=== PATIENT | female | born 1940 | race Caucasian/White ===

== ENCOUNTER → 2023-07-01 09:58 | Outpatient (BNVA) | payer MEDICARE, SELFPAY | PROVIDERS: Family Provider Nurse Practitioner Family; PCP Nurse Practitioner Family; Visit Provider Podiatrist Foot & Ankle Surgery | DX: I73.9 Peripheral vascular disease, unspecified (principal); L60.3 Nail dystrophy; M20.41 Other hammer toe(s) (acquired), right foot; M20.42 Other hammer toe(s) (acquired), left foot; M21.611 Bunion of right foot; M21.612 Bunion of left foot | CPT/HCPCS: 11721; 99204 ==

== ENCOUNTER 2023-09-29 20:09 | Emergency (ER) | payer MEDICARE, SELFPAY ==
[2023-09-29 20:22] VITALS: BP 156/86; PULSE 87; RESP 16; TEMP 36.8; O2SAT 91; BMI 28.1
--- NOTE | 2023-09-29 21:00 | XRR_ITS ---
PROCEDURE INFORMATION: Exam: XR Right Humerus Exam date and time: 09/29/2023 9:03 PM Age: 82 years old Clinical indication: Injury or trauma; Fall; Other: Swelling; Additional info: Fall/pain TECHNIQUE: Imaging protocol: Radiologic exam of the right humerus. Views: 2 or more views. COMPARISON: CR (CHEST, ) 09/29/2023 9:03 PM FINDINGS: Bones/joints: Normal. Soft tissues: Normal. XR/[place] [id number] IMPRESSION: No acute findings.
--- NOTE | 2023-09-29 21:00 | XRR_ITS ---
PROCEDURE INFORMATION: Exam: XR Right Shoulder Exam date and time: 09/29/2023 9:03 PM Age: 82 years old Clinical indication: Injury or trauma; Fall; Other: Swelling; Additional info: Fall/pain TECHNIQUE: Imaging protocol: Radiologic exam of the right shoulder. Views: 2 views. COMPARISON: [place] [id number] 09/29/2023 9:03 PM FINDINGS: Bones/joints: Normal. Soft tissues: Axillary view is recommended rule out shoulder dislocation. XR/XR shoulder RT min 2V* [id number] IMPRESSION: Axillary view is recommended rule out shoulder dislocation.
--- NOTE | 2023-09-29 22:03 | CTR_ITS ---
PROCEDURE INFORMATION: Exam: CT Right Upper Extremity Without Contrast, Shoulder Exam date and time: 09/29/2023 10:17 PM Age: 82 years old Clinical indication: Pain and injury or trauma; Fall; Blunt trauma (contusions or hematomas); Shoulder; Right; Additional info: Fall/ trauma TECHNIQUE: Imaging protocol: Computed tomography of the right upper extremity without contrast. Exam focused on the shoulder. Radiation optimization: All CT scans at this facility use at least one of these dose optimization techniques: automated exposure control; mA and/or kV adjustment per patient size (includes targeted exams where dose is matched to clinical indication); or iterative reconstruction. REPORTING DATA: Count of CT and Cardiac NM exams in prior 12 months: This patient has received 0 known CTs and 0 known cardiac nuclear medicine studies in the 12 months prior to the current study. 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 Soft tissues: Normal. CT/CT shoulder RT wo con* [id number] IMPRESSION: 1. 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 2. No acute posttraumatic findings.
--- NOTE | 2023-09-29 23:00 | W.ED.FALL ---
HPI - Fall General: Chief Complaint: Fall Stated Complaint: Fell injured r shoulder Time Seen by Provider: 09/29/23 20:35 History of Present Illness: 82-year-old female presents emergency department with her family members. Family member states that they were standing in the kitchen when she was sitting at a chair and attempted to reach to the table lost her balance from a seated position approximately 1 to 1-1/2 feet above the linoleum floor fell to the floor and started having right shoulder pain. The patient states that her shoulder pain is a 3 or 5 out of 10 she states that hurts more when she attempts to move it. She states she did not lose consciousness does not have head neck or back pain. She states that it is only her shoulder that is causing her difficulty. She denies numbness or tingling to the extremity she states she is able to grab and hold things with her hand but hurts to raise her arm up. Review of Systems General: Reports: 10 or more systems reviewed and unremarkable except in HPI and below Musc: Reports: extremity pain and joint pain PFSH ED PFSH: Surgical History (Updated 09/02/23 @ 14:29 by SKY Oshea) Hx of eye surgery Family History Other Cancer Social History (Updated 09/02/23 @ 14:08 by Kalli Sharma LPN) Smoking and tobacco/nicotine status: never used tobacco/nicotine Alcohol intake: never Substance/Drug Use: never Adopted: No Caregiver/support person: No Lives independently: No Sexually active: Yes Do you think of yourself as: Straight/Heterosexual Current gender identity: Female Physical Exam Narrative: EXAM NARRATIVE: Constitutional: the patient appears well nourished and with normal development. Vital signs reviewed as documented. HENMT: Normocephalic, atraumatic. Extermal ears with normal appearance without drainage. Nose without drainage, normal appearance. Mucus membranes moist. Neck is supple, No jugular venous distension, trachea is midline, no appreciable carotid bruits. No lymphadenopathy. No meningeal signs. Flexion, extension and lateral rotation is without pain. Eyes: Pupils are equal, round, reactive to light and accommodation. No scleral icterus. Extra-ocular movement are intact. Thorax is symmetrical and with equal rise and fall with respirations. Resp: Lungs are clear to auscultation. No wheezes, rales, crackles or ronchi at present. Cardio: Regular rate and rhythm. Positive S1, S2. No appreciable murmurs, rubs or gallops. GI: Abdominal exam reveals normal bowel sounds to all quadrants. No organomegaly. No obvious palpable masses noted. No hepatomegally appreciated. Soft, nontender to palpation. Extremity: Extremities are non-edematous and both femoral and pedal pulses are 2+ and equal bilaterally. Moves all Remaining extremities well, sensation in all extremities. Patient complains of increased pain when abducting the right arm. Neuro: Alert and oriented x4, person, place, time and situation. Cranial nerves II through XII are grossly intact, there is no focal neurological deficits that I can appreciate at present. Motor strength in the upper and lower extremities are equal and bilateral 5/5. Psych: Cooperative, calm, normal thought process, appropriate judgment. Skin: No lesions, rashes. No gross abnormalities noted. Back: Symmetrical, no obvious deformity, No CVA tenderness Course Reevaluation(s): Reevaluation #1: Procedure note:Right shoulder sling I reviewed the radiographic examination and determined the need for stabilization via right upper extremity sling. A soft shoulder sling was utilized. The sling was ordered and placed by the nursing staff, under the direct supervision of myself (ER Physician. The patient's neurovascular status was evaluated and was intact before and after the application of the sling/splint. Capillary refill was less than 3 seconds before and after the application. The patient was provided a sling and the most appropriate anatomical and functional position at that time. Anticipatory guidance, return precautions and red flag precautions were provided to the patient and support person. The patient/support person was advised to contact the patient's primary care provider or Orthopedic provider to make a follow-up appointment for additional evaluation and treatment within the next 3-5 days. Vital Signs: Vital signs: Vital Signs Temperature 98.3 F 09/29/23 20:22 Pulse Rate 87 09/29/23 20:22 Respiratory Rate 16 09/29/23 20:22 Blood Pressure 156/86 09/29/23 20:22 Pulse Oximetry 91 09/29/23 20:22 Oxygen Delivery Me thod Room Air 09/29/23 20:22 MDM - Fall Medical Decision Making Physical exam completed, will obtain radiographic examination plain film of the right humerus and right shoulder to evaluate for dislocation or fracture. Medical Records I reviewed the patient's medical records. Lab Data I reviewed the patient's lab results. Radiology Impressions Humerus X-Ray 09/29/23 21:00 IMPRESSION: No acute findings. Shoulder X-Ray 09/29/23 21:00 IMPRESSION: Axillary view is recommended rule out shoulder dislocation. Shoulder CT 09/29/23 22:03 IMPRESSION: 1. 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 2. No acute posttraumatic findings. All radiology interpretation(s) finalized by discharge Discharge Plan Discharge Patient Disposition: Home Clinical Impression: Accidental fall from chair, Acute pain of right shoulder Condition: Stable Prescriptions: New naproxen 500 mg tablet 500 mg PO BID PRN (Reason: pain) Qty: 14 0RF No Action lisinopril 20 mg tablet 20 mg PO DAILY Qty: 90 1RF Discharge Orders: Discharge ED (Routine); Ordered 09/29/23 Ordered By: Joe Muhammad Referrals: Malcolm Paz FNP [Primary Care Provider] - Discharge Diet: Advance as tolerated Discharge Activity: Limit activity as instructed Patient Instructions: Opioid Safety, Pain Management Activity Restrictions/Additional Instructions: Activity Restrictions/Additional Instructions: Thank you for choosing [facility] for your healthcare needs today. Please realize that you were seen in the Emergency Department and that we are providing you with an emergency medical screening exam and this may not be a complete and all inclusive of all the testing and or medical work-up that you may need to determine your ailment or severity of your illness. It is very important that you follow-up as instructed with your Primary care provider or Specialist for additional evaluation and to discuss your medical treatment plan. You may return to the Emergency Department should you have concerns or if your condition changes or worsens in any way. Coding Level of Care Code ED Meter Reader for Tahir Khalil
== END 2023-09-29 23:52 | disposition home or self-care (01) ==
PROVIDERS: Emergency Provider Internal Medicine; PCP Nurse Practitioner Family
DX: M25.511 Pain in right shoulder (principal); W07.XXXA Fall from chair, initial encounter
CPT/HCPCS: 73030; 73060; 73200; 99284

== ENCOUNTER → 2023-09-30 10:27 | Outpatient (BNVA) | payer MEDICARE, SELFPAY | PROVIDERS: PCP Nurse Practitioner Family; Visit Provider Podiatrist Foot & Ankle Surgery | DX: I73.9 Peripheral vascular disease, unspecified (principal); L60.3 Nail dystrophy | CPT/HCPCS: 11721 ==

== ENCOUNTER → 2023-12-07 15:15 | Outpatient (BNVA) | payer MEDICARE, SELFPAY | PROVIDERS: PCP Nurse Practitioner Family; Referring Provider Nurse Practitioner Family; Visit Provider Dermatology | DX: D48.5 Neoplasm of uncertain behavior of skin (principal); D18.01 Hemangioma of skin and subcutaneous tissue; L82.1 Other seborrheic keratosis; Z79.899 Other long term (current) drug therapy; L81.4 Other melanin hyperpigmentation | CPT/HCPCS: 11102; 99203 ==

== ENCOUNTER 2023-12-08 11:52 | Outpatient (CLI) | payer MEDICARE, SELFPAY ==
[2023-12-08 12:29] LABS: Basophils # 0.1 10^3/uL (0.0-0.1); Basophils % 0.7 %; Eosinophils # 0.2 10^3/uL (0.0-0.8); Eosinophils % 2.3 %; Hematocrit 40.5 % (36-47); Lymphocytes # 1.2 10^3/uL (0.8-4.8); Lymphocytes % 13.6 %; Mean Corpuscular HGB Conc 32.1 g/dL (30-55); Mean Corpuscular Hemoglobin 30.6 pg (27-33); Mean Corpuscular Volume 95.3 fl (85-98); Mean Platelet Volume 9.9 fL (7.4-10.4); Monocytes # 0.9 10^3/uL (0.2-0.9); Monocytes % 10.5 %; Neutrophils # 6.45 10^3/uL (1.8-7.7); Neutrophils % 72.6 %; Nucleated Red Blood Cells % 0 %; Platelet Count 282 10^3/cmm (157-399); Red Blood Count 4.25 10^6/uL (3.85-5.65); Red Cell Distribution Width 13.5 % (12.1-15.1); White Blood Count 8.88 10^3/uL (3.29-11.43)
[2023-12-08 12:47] LABS: Alanine Aminotransferase 14 U/L (0-33); Albumin Level 3.6 g/dL (3.5-5.2); Alkaline Phosphatase 127 U/L (35-105); Anion Gap 12.3 (5-19); Aspartate Amino Transferase 17 U/L (0-32); Blood Urea Nitrogen 11 mg/dL (8-23); Calcium 8.5 mg/dL (8.5-10.5); Carbon Dioxide 27 mmol/L (22-29); Chloride 104 mmol/L (98-107); Creatine Phosphokinase 37 U/L (26-192); Glucose 88 mg/dL (65-115); Osmolality Calculated 289 mOsm/kg (285-295); Potassium 3.3 mmol/L (3.5-5.1); Sodium 140 mmol/L (136-145); Total Bilirubin 0.5 mg/dL (0.15-1.2); Total Protein 6.6 g/dL (6.6-8.7)
== END 2023-12-08 11:53 | disposition home or self-care (01) ==
LOC: LAB 11:54
PROVIDERS: PCP Nurse Practitioner Family; Visit Provider Dermatology
DX: Z79.899 Other long term (current) drug therapy (principal)
CPT/HCPCS: 36415; 80053; 82550; 85025

== ENCOUNTER → 2023-12-28 09:34 | Outpatient (BNVA) | payer MEDICARE, SELFPAY | PROVIDERS: PCP Nurse Practitioner Family; Visit Provider Podiatrist Foot & Ankle Surgery | DX: I73.9 Peripheral vascular disease, unspecified (principal); L60.3 Nail dystrophy | CPT/HCPCS: 11721 ==

== ENCOUNTER → 2024-01-12 13:35 | Outpatient (BNVA) | payer MEDICARE, SELFPAY | PROVIDERS: PCP Nurse Practitioner Family; Visit Provider Dermatology | DX: C44.311 Basal cell carcinoma of skin of nose (principal); L82.1 Other seborrheic keratosis | CPT/HCPCS: 99214 ==

== ENCOUNTER 2024-02-07 17:37 | Emergency (ER) | payer MEDICARE, SELFPAY ==
[2024-02-07 17:38] VITALS: RESP 18; TEMP 36.8
--- NOTE | 2024-02-07 17:47 | CTR_ITS ---
PROCEDURE INFORMATION: Exam: CT Head Without Contrast Exam date and time: 02/07/2024 6:06 PM Age: 83 years old Clinical indication: Injury or trauma; Fall; Swelling (edema) TECHNIQUE: Imaging protocol: Computed tomography of the head without contrast. Radiation optimization: All CT scans at this facility use at least one of these dose optimization techniques: automated exposure control; mA and/or kV adjustment per patient size (includes targeted exams where dose is matched to clinical indication); or iterative reconstruction. COMPARISON: No relevant prior studies available. RADIATION DOSE METRICS: Total DLP (mGy-cm): 1139.73 FINDINGS: Brain: Sequela of moderate chronic microvascular ischemic changes with periventricular and deep white matter hypoattenuation. Orellana-white differentiation is otherwise maintained. No evidence of intra-axial or extra-axial hemorrhage. No mass effect or midline shift. Basilar cisterns are patent. Cerebral ventricles: No hydrocephalus. Paranasal sinuses: The visualized paranasal sinuses are well aerated. Mastoid air cells: The visualized mastoids and middle ears are clear. Bones/joints: The visualized calvarium and bony orbits are intact. Soft tissues: Left frontal scalp/periorbital contusion with an approximately [address]/CT head wo con* [id number] IMPRESSION: 1. No acute intracranial abnormality. 2. Left frontal scalp/periorbital contusion with an approximately 3 cm scalp hematoma.
--- NOTE | 2024-02-07 17:47 | ECG_ITS ---
[facility] Test Date: 2024-02-07 Pat Name: Geri Spencer Department: Room: Gender: Female Buildings And Grounds Superintendent: : 1940 Requested By: Daniel Basilio Order Number: [id number] Dasha MD: Shiela Santana M.D. Measurements Intervals [place] Rate: 74 P: 21 NE: 134 QRS: -32 QRSD: 94 T: 33 QT: 339 QTc: 377 Interpretive Statements SINUS RHYTHM LEFT AXIS DEVIATION [QRS AXIS < -30] NONSPECIFIC T-WAVE ABNORMALITY No previous ECG available for comparison Electronically Signed On 02-07-2024 19:39:04 CDT by Shiela Santana M.D. [email or web address]
--- NOTE | 2024-02-07 17:47 | CTR_ITS ---
PROCEDURE INFORMATION: Exam: CT Cervical Spine Without Contrast Exam date and time: 02/07/2024 6:09 PM Age: 83 years old Clinical indication: Injury or trauma; Fall; Swelling TECHNIQUE: Imaging protocol: Computed tomography of the cervical spine without contrast. Radiation optimization: All CT scans at this facility use at least one of these dose optimization techniques: automated exposure control; mA and/or kV adjustment per patient size (includes targeted exams where dose is matched to clinical indication); or iterative reconstruction. COMPARISON: CT head wo con* [id number] 02/07/2024 6:06 PM RADIATION DOSE METRICS: Total DLP (mGy-cm): 156.26 FINDINGS: Bones/joints: No evidence of acute fracture or subluxation of the cervical spine. The craniocervical junction including the atlantoaxial and atlantooccipital articulations are intact. C2-C3: Uncovertebral hypertrophy and facet arthrosis results in moderate-severe right-sided foraminal stenosis. Mild central stenosis. C3-C4: Uncovertebral hypertrophy and facet arthrosis results in moderate-severe left-sided and mild right-sided foraminal stenosis. No central stenosis. C4-C5: Uncovertebral hypertrophy and facet arthrosis results in severe right-sided and moderate left-sided foraminal stenosis. Mild central stenosis. C5-C6: Uncovertebral hypertrophy and facet arthrosis results in moderate-severe bilateral foraminal stenosis. Mild central stenosis. C6-C7: Uncovertebral hypertrophy and facet arthrosis results in moderate bilateral foraminal stenosis. No central stenosis. C7-T1: No central or foraminal stenosis. Lungs: The visualized lung apices are clear. Soft tissues: No gross soft tissue abnormality. No significant prevertebral edema. No evidence of fluid collection or hematoma. CT/CT cervical spin wo con* [id number] IMPRESSION: 1. No evidence of fracture or subluxation of the cervical spine.
--- NOTE | 2024-02-07 17:50 | W.ED.HEATRA ---
Documented by User: LILLIE Navarro 02/07/24 23:21 HPI - Head Injury General: Chief complaint: Head Injury Stated complaint: Fall Time Seen by Provider: 02/07/24 17:41 Source: EMS Mode of arrival: EMS Limitations: no limitations History of Present Illness: Patient is an 83-year-old female presenting to the emergency department via EMS due to presumed fall prior to arrival. Per EMS, patient's son had reported to them that he found her on the floor at her residence at approximately 1630 with obvious swelling to the left side of her head. Unknown how long she had been down. He called EMS, and upon their arrival patient was sitting on the toilet having a bowel movement. Per EMS, patient is normally alert and oriented x 4 and her only complaint has been pain to the right arm from the blood pressure cuff. She arrives with obvious hematoma to the left periorbital/frontal region, as well as an associated abrasion to this location and an abrasion to the left arm. It is unknown how she fell, however family is on the way to the emergency department. Review of systems unobtainable due to patient's somnolence, however she is able to report her name and where she is at. Only medication she is on is lisinopril, she is not on any blood thinners. I spoke with patient's son shortly after initial examination, who the patient lives with. He notes that he got off work around 4:00, went home to find the patient lying on the bathroom floor. Patient had reported to him that she had been on the ground for about an hour, however he believes that it was more like 3 or 4 hours. He notes that he picked her up and put her on the toilet as she was still complaining of needing to use the bathroom, but then subsequently called EMS due to the injury to her head. He tells me that she has been falling a lot more recently, and has tried to talk with her about being placed in a nursing facility. Normally, she is ambulatory with a cane but he is also trying to urge her to start using walker. He states that she is normally alert and oriented x 3 and is able to report the time of day and where she is at at the time. He emphasizes that he checks her mental status regularly as he fears that she is starting to exhibit signs of altered mental status. To him, she was not complaining of any pain from the fall that she took today. He does note that she has intermittent right shoulder pain from a fall she took earlier this year, and that is the last thing she complained about to him. She sees Dr. Paz 4 times a year, recently saw him a few weeks ago and reportedly everything was okay. Patient's son does state that he believes she fell due to the bathroom being remodeled, as she is struggled with accommodating. MD Complaint: head injury and fall Onset (ago): minute(s) Mechanism of Injury: unsure Place: home Loss of Consciousness: unsure Location of injury: frontal Other Injuries: upper extremity (Abrasion left upper extremity) Review of Systems General: Reports: Other (Unobtainable due to patient's somnolence) [facility] ED PFSH: Medical History Fall Hypertension Surgical History Hx of eye surgery Family History Other Cancer Social History Smoking and tobacco/nicotine status: never used tobacco/nicotine Alcohol intake: never Substance/Drug Use: never Caregiver/support person: No Lives independently: No Household members: family Sexually active: Yes Do you think of yourself as: Straight/Heterosexual Current gender identity: Female Physical Exam Const: COMMON NORMALS: patient oriented x3 EXAM LIMITATIONS: physical limitations GENERAL APPEARANCE: disheveled NUTRITIONAL APPEARANCE: obese ORIENTATION/CONSCIOUSNESS: Yes awake, Yes oriented to person, Yes oriented to place and Yes oriented to time HENMT: COMMON NORMALS: external ears normal, EAC's normal, TM's normal bilaterally and Normal external nose present HEAD & SCALP: abrasion left frontal , contusion left frontal and hematoma left frontal ; no Mcclellan's sign and no raccoon eyes NOSE: Normal external nose present and Normal septum present EXTERNAL EAR: Yes external ears normal EXTERNAL AUDITORY CANAL: EAC's normal TYMPANIC MEMBRANE: TM's normal bilaterally MOUTH: Normal oral and palatal mucosa present Eye: COMMON NORMALS: Equal, round and reactive pupils present, EOMs intact bilaterally and conjunctivae normal PERIORBITAL: periorbital findings abnormal positive left periorbital swelling CONJUNCTIVA: Yes conjunctivae normal PUPIL: Yes Equal, round and reactive pupils present Neck/C-Spine: COMMON NORMALS: full ROM and supple CERVICAL SPINE: Yes cervical ROM normal and No pain with cervical ROM Chest: COMMONS NORMALS: normal inspection of the chest and normal palpation of entire chest wall Resp: COMMON NORMALS: normal respiratory effort, No retractions, No use of accessory muscles and clear to auscultation bilaterally AUSCULTATION: clear to auscultation bilaterally Cardio: COMMON NORMALS: regular rate, regular rhythm, S1 normal heart sound present, S2 normal heart sound present, No gallops present (Cardio), No clicks present (Cardio), No murmurs present (Cardio) and Peripheral pulses 2+ throughout RATE: regular rate RHYTHM: regular rhythm HEART SOUNDS: S1 normal heart sound present and S2 normal heart sound present PERIPHERAL PULSES: Peripheral pulses 2+ throughout GI: COMMON NORMALS: Normal to inspection, nondistended, normoactive bowel sounds present, Soft to palpation and non-tender PALPATION: Yes Soft to palpation Back/Pelvis: COMMON NORMALS: thoracic and lumbar spine normal to inspection, no thoracic nor lumbar tenderness and thoraco-lumbar ROM normal Extremity: COMMON NORMALS: full ROM, capillary refill normal and no joint enlargement NARRATIVE EXTREMITY EXAM: Abrasion noted to lateral aspect of left distal upper extremity. No obvious deformities, bony tenderness, joint swelling or ecchymosis, or other signs of trauma. Neuro: COMMON NORMALS: patient oriented x3, moves all extremities, no focal motor deficits, no sensory deficits noted and deep tendon reflexes 2+ bilaterally SENSORIUM/ORIENTATION: Yes oriented to person, Yes oriented to place, Yes oriented to time and Yes somnolent GAIT: Yes Unable to assess gait MOTOR EXAM: Pronator motor function not present, no tremor noted and Motor fasciculations not present Psych: COMMON NORMALS: mental status grossly normal ATTITUDE: Yes calm ACTIVITY/MOTOR BEHAVIOR: Yes appropriate eye contact SPEECH: Yes slow ATTENTION/CONCENTRATION: Yes attention grossly intact Skin: NARRATIVE SKIN EXAM: See extremity exam Course Vital Signs: Vital signs: Vital Signs Temperature 98.2 F 02/07/24 17:38 Pulse Rate 80 02/07/24 21:53 Respiratory Rate 18 02/07/24 21:53 Blood Pressure 195/85 02/07/24 20:17 Pulse Oximetry 92 02/07/24 21:53 Oxygen Delivery Me thod Room Air 02/07/24 20:17 MDM - Head Injury Medcial Decision Making This patient seen and evaluated in the emergency department as she was brought in by EMS for head injury due to fall. She did arrive with a large hematoma to the left frontal region, however was reportedly at baseline mentation. I had a separate conversation with family who reported she has been followed more recently and they are currently working to get her into residential placement. Examination did show a somnolent, though orientated patient with after mentioned hematoma to the left frontal/periorbital region and an abrasion to the left arm. CT head without contrast and CT cervical spine without contrast both were negative for any acute fractures. Basic lab work was overall unremarkable aside from a slightly low potassium, of which I gave the patient some potassium chloride. Her EKG was unremarkable, and specifically her creatinine kinase was unremarkable. UA showed trace leukocytes though did show some contamination, I do not feel necessary to treat for UTI at this time. Patient will be discharged back into the care of her son, who will continue to find her placement in some sort of assisted living. Return precautions were given however, and all other questions and concerns addressed at this time. Lab Data 02/07/24 17:45 02/07/24 19:12 Radiology Impressions Cervical Spine CT 02/07/24 17:47 IMPRESSION: 1. No evidence of fracture or subluxation of the cervical spine. Head CT 02/07/24 17:47 IMPRESSION: 1. No acute intracranial abnormality. 2. Left frontal scalp/periorbital contusion with an approximately 3 cm scalp hematoma. Laboratory Results WBC 9.85 10^3/uL (3.29-11.43) 02/07/24 17:45 RBC 4.34 10^6/uL (3.85-5.65) 02/07/24 17:45 Hgb 13.40 g/dL (11.27-16.99) 02/07/24 17:45 Hct 40.2 % (36-47) 02/07/24 17:45 MCV 92.6 fl (85-98) 02/07/24 17:45 MCH 30.9 pg (27-33) 02/07/24 17:45 MCHC 33.3 g/dL (30-55) 02/07/24 17:45 RDW 12.8 % (12.1-15.1) 02/07/24 17:45 Plt Count 335 10^3/cmm (157-399) 02/07/24 17:45 MPV 9.6 fL (7.4-10.4) 02/07/24 17:45 Neut % (Auto) 88.7 % 02/07/24 17:45 Lymph % (Auto) 6.2 % 02/07/24 17:45 [place] % (Auto) 4.0 % 02/07/24 17:45 Eos % (Auto) 0.1 % 02/07/24 17:45 Baso % (Auto) 0.4 % 02/07/24 17:45 Neut # (Auto) 8.74 10^3/uL (1.8-7.7) H 02/07/24 17:45 Lymph # (Auto) 0.6 10^3/uL (0.8-4.8) L 02/07/24 17:45 [place] # (Auto) 0.4 10^3/uL (0.2-0.9) 02/07/24 17:45 Eos # (Auto) 0.0 10^3/uL (0.0-0.8) 02/07/24 17:45 Baso # (Auto) 0.0 10^3/uL (0.0-0.1) 02/07/24 17:45 Nucleated RBC % (auto) 0 % 02/07/24 17:45 Nucleated RBCs # 0.0 /100WBC 02/07/24 17:45 PT 13.00 SECONDS (12.1-14.9) 02/07/24 17:45 INR 0.95 (0.8-1.2) 02/07/24 17:45 APTT 28.1 SECONDS (23.9-36.7) 02/07/24 17:45 Sodium 141 mmol/L (136-145) 02/07/24 19:12 Potassium 3.4 mmol/L (3.5-5.1) L 02/07/24 19:12 Chloride 103 mmol/L (98-107) 02/07/24 19:12 Carbon Dioxide 28 mmol/L (22-29) 02/07/24 19:12 Anion Gap 13.4 (5-19) 02/07/24 19:12 BUN 12 mg/dL (8-23) 02/07/24 19:12 Creatinine 0.8 mg/dL (0.5-0.9) 02/07/24 19:12 GFR Calculation Not Reportable 02/07/24 19:12 Glucose 146 mg/dL (65-115) H 02/07/24 19:12 Calculated Osmolality 294 mOsm/kg (285-295) 02/07/24 19:12 Calcium 9.3 mg/dL (8.5-10.5) 02/07/24 19:12 Total Bilirubin 0.5 mg/dL (0.15-1.2) 02/07/24 19:12 AST 22 U/L (0-32) 02/07/24 19:12 ALT 18 U/L (0-33) 02/07/24 19:12 Alkaline Phosphatase 131 U/L (35-105) H 02/07/24 19:12 Creatine Kinase 120 U/L (26-192) 02/07/24 19:12 Total Protein 7.3 g/dL (6.6-8.7) 02/07/24 19:12 Albumin 3.8 g/dL (3.5-5.2) 02/07/24 19:12 Globulin 3.5 g/dL (1.3-4.6) 02/07/24 19:12 Urine Color Yellow (Yellow) 02/07/24 21:00 Urine Appearance Clear (CLEAR) 02/07/24 21:00 Urine pH 6 (5-7) 02/07/24 21:00 Ur Specific [place] 1.015 (1.005-1.030) 02/07/24 21:00 Urine Protein Trace (Negative) 02/07/24 21:00 Urine Glucose (UA) Norm (Normal) 02/07/24 21:00 Urine Ketones 1+ (Negative) H 02/07/24 21:00 Urine Blood Trace (Negative) H 02/07/24 21:00 Urine Nitrate Negative (Negative) 02/07/24 21:00 Urine Bilirubin Neg (Negative) 02/07/24 21:00 Urine Urobilinogen 4 mg/dL (Negative) H 02/07/24 21:00 Ur Leukocyte Esterase Trace (Negative) H 02/07/24 21:00 Urine RBC 0-4 /hpf (0-2) H 02/07/24 21:00 Urine WBC 0-4 /hpf (0-5) H 02/07/24 21:00 Ur Squamous Epith Cells 10-15 /hpf (0-5) H 02/07/24 21:00 Amorphous Sediment Not Reportable 02/07/24 21:00 Urine Bacteria Trace /hpf (NONE) 02/07/24 21:00 Urine Mucus 3+ /hpf 02/07/24 21:00 All radiology interpretation(s) finalized by discharge Discharge Plan Discharge Patient Disposition: Home Clinical Impression: Fall Qualifiers: Encounter type: initial encounter Qualified Code(s): W19.XXXA - Unspecified fall, initial encounter CHI (closed head injury) Qualifiers: Encounter type: initial encounter Qualified Code(s): S09.90XA - Unspecified injury of head, initial encounter Hematoma of frontal scalp Qualifiers: Encounter type: initial encounter Qualified Code(s): S00.03XA - Contusion of scalp, initial encounter Abrasion of arm, left Qualifiers: Encounter type: initial encounter Qualified Code(s): S40.812A - Abrasion of left upper arm, initial encounter Condition: Stable Prescriptions: No Action lisinopril 20 mg tablet 20 mg PO DAILY Qty: 90 1RF hydrocortisone [Proctosol HC] 2.5 % cream with perineal applicator 1 applic MO DAILY PRN (Reason: hemorrhoids) Qty: 30 1RF naproxen 500 mg tablet 500 mg PO BID PRN (Reason: pain) Qty: 14 0RF Discharge Orders: Discharge ED (Routine); Ordered 02/07/24 Ordered By: Daniel Ratliff Referrals: Malcolm Paz FNP [Primary Care Provider] - Discharge Diet: Usual diet Discharge Activity: Increase activity as tolerated Patient Instructions: Fall Prevention for Older Adults (ED) Activity Restrictions/Additional Instructions: Continue taking your medications as prescribed. Please return with any new or concerning symptoms. Follow-up with primary care provider. Coding Level of Care Code ED Delivery Associate for Chg Fwd Documented by User: Buck Ho DO 02/09/24 05:55 HPI - Head Injury General: Chief complaint: Head Injury Stated complaint: Fall Time Seen by Provider: 02/07/24 17:41 [facility] ED PFSH: Medical History Fall Hypertension Surgical History Hx of eye surgery Family History Other Cancer Social History Smoking and tobacco/nicotine status: never used tobacco/nicotine Alcohol intake: never Substance/Drug Use: never Caregiver/support person: No Lives independently: No Household members: family Sexually active: Yes Do you think of yourself as: Straight/Heterosexual Current gender identity: Female Course Vital Signs: Vital signs: Vital Signs Temperature 98.2 F 02/07/24 17:38 Pulse Rate 80 02/07/24 21:53 Respiratory Rate 18 02/07/24 21:53 Blood Pressure 195/85 02/07/24 20:17 Pulse Oximetry 92 02/07/24 21:53 Oxygen Delivery Me thod Room Air 02/07/24 20:17 MDM - Head Injury Medcial Decision Making This patient seen and evaluated in the emergency department as she was brought in by EMS for head injury due to fall. She did arrive with a large hematoma to the left frontal region, however was reportedly at baseline mentation. I had a separate conversation with family who reported she has been followed more recently and they are currently working to get her into residential placement. Examination did show a somnolent, though orientated patient with after mentioned hematoma to the left frontal/periorbital region and an abrasion to the left arm. CT head without contrast and CT cervical spine without contrast both were negative for any acute fractures. Basic lab work was overall unremarkable aside from a slightly low potassium, of which I gave the patient some potassium chloride. Her EKG was unremarkable, and specifically her creatinine kinase was unremarkable. UA showed trace leukocytes though did show some contamination, I do not feel necessary to treat for UTI at this time. Patient will be discharged back into the care of her son, who will continue to find her placement in some sort of assisted living. Return precautions were given however, and all other questions and concerns addressed at this time. Chart reviewed Lab Data 02/07/24 17:45 02/07/24 19:12 Radiology Impressions Cervical Spine CT 02/07/24 17:47 IMPRESSION: 1. No evidence of fracture or subluxation of the cervical spine. Head CT 02/07/24 17:47 IMPRESSION: 1. No acute intracranial abnormality. 2. Left frontal scalp/periorbital contusion with an approximately 3 cm scalp hematoma. Laboratory Results WBC 9.85 10^3/uL (3.29-11.43) 02/07/24 17:45 RBC 4.34 10^6/uL (3.85-5.65) 02/07/24 17:45 Hgb 13.40 g/dL (11.27-16.99) 02/07/24 17:45 Hct 40.2 % (36-47) 02/07/24 17:45 MCV 92.6 fl (85-98) 02/07/24 17:45 MCH 30.9 pg (27-33) 02/07/24 17:45 MCHC 33.3 g/dL (30-55) 02/07/24 17:45 RDW 12.8 % (12.1-15.1) 02/07/24 17:45 Plt Count 335 10^3/cmm (157-399) 02/07/24 17:45 MPV 9.6 fL (7.4-10.4) 02/07/24 17:45 Neut % (Auto) 88.7 % 02/07/24 17:45 Lymph % (Auto) 6.2 % 02/07/24 17:45 [place] % (Auto) 4.0 % 02/07/24 17:45 Eos % (Auto) 0.1 % 02/07/24 17:45 Baso % (Auto) 0.4 % 02/07/24 17:45 Neut # (Auto) 8.74 10^3/uL (1.8-7.7) H 02/07/24 17:45 Lymph # (Auto) 0.6 10^3/uL (0.8-4.8) L 02/07/24 17:45 [place] # (Auto) 0.4 10^3/uL (0.2-0.9) 02/07/24 17:45 Eos # (Auto) 0.0 10^3/uL (0.0-0.8) 02/07/24 17:45 Baso # (Auto) 0.0 10^3/uL (0.0-0.1) 02/07/24 17:45 Nucleated RBC % (auto) 0 % 02/07/24 17:45 Nucleated RBCs # 0.0 /100WBC 02/07/24 17:45 PT 13.00 SECONDS (12.1-14.9) 02/07/24 17:45 INR 0.95 (0.8-1.2) 02/07/24 17:45 APTT 28.1 SECONDS (23.9-36.7) 02/07/24 17:45 Sodium 141 mmol/L (136-145) 02/07/24 19:12 Potassium 3.4 mmol/L (3.5-5.1) L 02/07/24 19:12 Chloride 103 mmol/L (98-107) 02/07/24 19:12 Carbon Dioxide 28 mmol/L (22-29) 02/07/24 19:12 Anion Gap 13.4 (5-19) 02/07/24 19:12 BUN 12 mg/dL (8-23) 02/07/24 19:12 Creatinine 0.8 mg/dL (0.5-0.9) 02/07/24 19:12 GFR Calculation Not Reportable 02/07/24 19:12 Glucose 146 mg/dL (65-115) H 02/07/24 19:12 Calculated Osmolality 294 mOsm/kg (285-295) 02/07/24 19:12 Calcium 9.3 mg/dL (8.5-10.5) 02/07/24 19:12 Total Bilirubin 0.5 mg/dL (0.15-1.2) 02/07/24 19:12 AST 22 U/L (0-32) 02/07/24 19:12 ALT 18 U/L (0-33) 02/07/24 19:12 Alkaline Phosphatase 131 U/L (35-105) H 02/07/24 19:12 Creatine Kinase 120 U/L (26-192) 02/07/24 19:12 Total Protein 7.3 g/dL (6.6-8.7) 02/07/24 19:12 Albumin 3.8 g/dL (3.5-5.2) 02/07/24 19:12 Globulin 3.5 g/dL (1.3-4.6) 02/07/24 19:12 Urine Color Yellow (Yellow) 02/07/24 21:00 Urine Appearance Clear (CLEAR) 02/07/24 21:00 Urine pH 6 (5-7) 02/07/24 21:00 Ur Specific [place] 1.015 (1.005-1.030) 02/07/24 21:00 Urine Protein Trace (Negative) 02/07/24 21:00 Urine Glucose (UA) Norm (Normal) 02/07/24 21:00 Urine Ketones 1+ (Negative) H 02/07/24 21:00 Urine Blood Trace (Negative) H 02/07/24 21:00 Urine Nitrate Negative (Negative) 02/07/24 21:00 Urine Bilirubin Neg (Negative) 02/07/24 21:00 Urine Urobilinogen 4 mg/dL (Negative) H 02/07/24 21:00 Ur Leukocyte Esterase Trace (Negative) H 02/07/24 21:00 Urine RBC 0-4 /hpf (0-2) H 02/07/24 21:00 Urine WBC 0-4 /hpf (0-5) H 02/07/24 21:00 Ur Squamous Epith Cells 10-15 /hpf (0-5) H 02/07/24 21:00 Amorphous Sediment Not Reportable 02/07/24 21:00 Urine Bacteria Trace /hpf (NONE) 02/07/24 21:00 Urine Mucus 3+ /hpf 02/07/24 21:00 Discharge Plan Discharge Patient Disposition: Home Clinical Impression: Fall Qualifiers: Encounter type: initial encounter Qualified Code(s): W19.XXXA - Unspecified fall, initial encounter CHI (closed head injury) Qualifiers: Encounter type: initial encounter Qualified Code(s): S09.90XA - Unspecified injury of head, initial encounter Hematoma of frontal scalp Qualifiers: Encounter type: initial encounter Qualified Code(s): S00.03XA - Contusion of scalp, initial encounter Abrasion of arm, left Qualifiers: Encounter type: initial encounter Qualified Code(s): S40.812A - Abrasion of left upper arm, initial encounter Condition: Stable Prescriptions: No Action lisinopril 20 mg tablet 20 mg PO DAILY Qty: 90 1RF hydrocortisone [Proctosol HC] 2.5 % cream with perineal applicator 1 applic MO DAILY PRN (Reason: hemorrhoids) Qty: 30 1RF naproxen 500 mg tablet 500 mg PO BID PRN (Reason: pain) Qty: 14 0RF Discharge Orders: Discharge ED (Routine); Ordered 02/07/24 Ordered By: Daniel Ratliff Referrals: Malcolm Paz FNP [Primary Care Provider] - Discharge Diet: Usual diet Discharge Activity: Increase activity as tolerated Patient Instructions: Fall Prevention for Older Adults (ED) Activity Restrictions/Additional Instructions: Continue taking your medications as prescribed. Please return with any new or concerning symptoms. Follow-up with primary care provider. Coding Level of Care Code ED Delivery Associate for Tahir Khalil
[2024-02-07 18:02] LABS: Basophils % 0.4 %; Eosinophils % 0.1 %; Hematocrit 40.2 % (36-47); Lymphocytes # 0.6 10^3/uL (0.8-4.8); Lymphocytes % 6.2 %; Mean Corpuscular HGB Conc 33.3 g/dL (30-55); Mean Corpuscular Hemoglobin 30.9 pg (27-33); Mean Corpuscular Volume 92.6 fl (85-98); Mean Platelet Volume 9.6 fL (7.4-10.4); Monocytes # 0.4 10^3/uL (0.2-0.9); Neutrophils # 8.74 10^3/uL (1.8-7.7); Neutrophils % 88.7 %; Nucleated Red Blood Cells % 0 %; Platelet Count 335 10^3/cmm (157-399); Red Blood Count 4.34 10^6/uL (3.85-5.65); Red Cell Distribution Width 12.8 % (12.1-15.1); White Blood Count 9.85 10^3/uL (3.29-11.43)
[2024-02-07 18:15] LABS: INR 0.95 (0.8-1.2)
[2024-02-07 18:16] VITALS: BP 145/109; PULSE 75; O2SAT 92
[2024-02-07 18:16] LABS: Partial Thromboplastin Time 28.1 SECONDS (23.9-36.7)
[2024-02-07 19:47] LABS: Alanine Aminotransferase 18 U/L (0-33); Albumin Level 3.8 g/dL (3.5-5.2); Alkaline Phosphatase 131 U/L (35-105); Anion Gap 13.4 (5-19); Aspartate Amino Transferase 22 U/L (0-32); Blood Urea Nitrogen 12 mg/dL (8-23); Calcium 9.3 mg/dL (8.5-10.5); Carbon Dioxide 28 mmol/L (22-29); Chloride 103 mmol/L (98-107); Creatine Phosphokinase 120 U/L (26-192); Globulin 3.5 g/dL (1.3-4.6); Glucose 146 mg/dL (65-115); Osmolality Calculated 294 mOsm/kg (285-295); Potassium 3.4 mmol/L (3.5-5.1); Sodium 141 mmol/L (136-145); Total Bilirubin 0.5 mg/dL (0.15-1.2); Total Protein 7.3 g/dL (6.6-8.7)
[2024-02-07] MEDS: potassium chloride ER 20 mEq Tablet 40 MEQ PO (20:08)
[2024-02-07 20:17] VITALS: BP 195/85; PULSE 81; RESP 20; O2SAT 92
[2024-02-07 21:24] LABS: Bilirubin Urine Neg (Negative); Blood Urine Trace (Negative); Glucose Urine UA Norm (Normal); Ketones Urine 1+ (Negative); Nitrate Urine Negative (Negative); Protein Urine Trace (Negative); Specific Gravity, Urine 1.015 (1.005-1.030); Urine Appearance Clear (CLEAR); Urine Color Yellow (Yellow); Urobilinogen Urine 4 mg/dL (Negative); pH Urine 6 (5-7)
[2024-02-07 21:25] LABS: Add Urine Culture? No; Add Urine Microscopic? YES; Bacteria Urine TRACE /hpf; Leukocyte Esterase Urine Trace (Negative); Mucus Urine 3+ /hpf; RBC Urine 0-4 /hpf (0-2); WBC Urine 0-4 /hpf (0-5)
[2024-02-07 21:53] VITALS: PULSE 80; RESP 18; O2SAT 92
== END 2024-02-07 22:10 | disposition home or self-care (01) ==
PROVIDERS: Emergency Provider Physician Assistant; PCP Nurse Practitioner Family
DX: S00.03XA Contusion of scalp, initial encounter (principal); S40.812A Abrasion of left upper arm, initial encounter; I10 Essential (primary) hypertension; W18.11XA Fall from or off toilet without subsequent striking against object, initial encounter; Y92.002 Bathroom of unspecified non-institutional (private) residence as the place of occurrence of the external cause
CPT/HCPCS: 36415; 70450; 72125; 80053; 81001; 82550; 85025; 85610; 85730; 93005; 99284

== ENCOUNTER 2024-02-08 23:14 | Inpatient (IN) | payer MEDICARE, SELFPAY ==
[2024-02-08 23:16] VITALS: BP 234/82; PULSE 88; RESP 15; TEMP 36.2; O2SAT 92; BMI 28.8
--- NOTE | 2024-02-08 23:20 | CTR_ITS ---
PROCEDURE INFORMATION: Exam: CT Cervical Spine Without Contrast Exam date and time: 02/08/2024 11:37 PM Age: 83 years old Clinical indication: Injury or trauma; Fall; Other: Pain; Additional info: Trauma/fall TECHNIQUE: Imaging protocol: Computed tomography of the cervical spine without contrast. Radiation optimization: All CT scans at this facility use at least one of these dose optimization techniques: automated exposure control; mA and/or kV adjustment per patient size (includes targeted exams where dose is matched to clinical indication); or iterative reconstruction. COMPARISON: CT cervical spin wo con* [id number] 02/07/2024 6:09 PM RADIATION DOSE METRICS: Total DLP (mGy-cm): 557.1 FINDINGS: Bones/joints: Mild degenerative disc disease at C4-C5. Lungs: Lung apices are normal. Soft tissues: Unremarkable. CT/CT cervical spin wo con* [id number] IMPRESSION: No acute cervical spine fracture or listhesis.
--- NOTE | 2024-02-08 23:20 | CTR_ITS ---
PROCEDURE INFORMATION: Exam: CT Head Without Contrast Exam date and time: 02/08/2024 11:37 PM Age: 83 years old Clinical indication: Injury or trauma; Fall; Other: Pain; Additional info: Trauma/fall TECHNIQUE: Imaging protocol: Computed tomography of the head without contrast. Radiation optimization: All CT scans at this facility use at least one of these dose optimization techniques: automated exposure control; mA and/or kV adjustment per patient size (includes targeted exams where dose is matched to clinical indication); or iterative reconstruction. COMPARISON: CT head wo con* [id number] 02/07/2024 6:06 PM RADIATION DOSE METRICS: Total DLP (mGy-cm): 1077.6 FINDINGS: Brain: Subcortical and periventricular white matter changes consistent with small-vessel ischemic disease in the appropriate clinical setting. Small-vessel ischemic disease. No acute intracranial abnormality. Cerebral ventricles: No ventriculomegaly. Paranasal sinuses: Visualized sinuses are unremarkable. No fluid levels. Mastoid air cells: Visualized mastoid air cells are well aerated. Orbital cavities: The left globe appears intact. Bones/joints: Soft tissue defect and hematoma along the left frontal skull orbit with no underlying skull fracture. Soft tissues: Unremarkable. CT/CT head wo con* [id number] IMPRESSION: 1. No acute intracranial abnormality. 2. Soft tissue defect and hematoma along the left frontal skull orbit with no underlying skull fracture. 3. Small-vessel ischemic disease. 4. The left globe appears intact.
--- NOTE | 2024-02-08 23:30 | ED_ITS ---
Documented by User: LILLIE Navarro 02/09/24 00:49 HPI - Head Injury 2 General: Chief complaint: Fall Stated complaint: head lac, fall Time Seen by Provider: 02/08/24 23:21 Source: EMS Mode of arrival: EMS Limitations: physical limitation History of Present Illness: This patient is an 83-year-old female presenting to the emergency department via EMS due to head injury tonight. Patient seen in the emergency department yesterday for separate closed head injury, where she had negative CT scans and overall negative workup. At that time, son had stated that he was currently in the process of finding the patient in assisted living facility due to her repeat falls and overall deterioration. Patient was discharged home with instructions to continue finding snf placement on an outpatient basis, however patient again fell tonight at home, as witnessed by family. She hit her head exactly where her hematoma was yesterday, which caused a substantial amount of bleeding and laceration to the area. There was reportedly no loss of consciousness however the blood loss was mild to moderate. Patient's review of systems unobtainable due to her physical condition, and she is not able to report to me where she is or the time of day/year. Currently awaiting family to obtain further history. MD Complaint: head injury Onset (ago): hour(s) Mechanism of Injury: fall Place: home Loss of Consciousness: no Location of injury: frontal Other Injuries: none Review of Systems 2 General: Reports: ROS unobtainable due to medical condition [facility] ED 2 PFSH: Medical History Fall Hypertension Surgical History Hx of eye surgery Family History Other Cancer Social History Smoking and tobacco/nicotine status: never used tobacco/nicotine Alcohol intake: never Substance/Drug Use: never Caregiver/support person: No Lives independently: No Household members: family Sexually active: Yes Do you think of yourself as: Straight/Heterosexual Current gender identity: Female Physical Exam 2 Const: EXAM LIMITATIONS: physical limitations GENERAL APPEARANCE: ill appearing ORIENTATION/CONSCIOUSNESS: Yes awake, Yes oriented to person and Yes confused HENMT: COMMON NORMALS: external ears normal and Normal external nose present HEAD & SCALP: hematoma left frontal and laceration left frontal ; no Mcclellan's sign, no palpable skull fracture and no raccoon eyes NOSE: Normal external nose present EXTERNAL EAR: Yes external ears normal Eye: COMMON NORMALS: Equal, round and reactive pupils present GENERAL EYE: appearance normal, both eyes and all related structures PERIORBITAL: p eriorbital findings abnormal positive left periorbital swelling and periorbital erythema PUPIL: Yes Equal, round and reactive pupils present Neck/C-Spine: COMMON NORMALS: no JVD GENERAL: Yes normal visual inspection CERVICAL SPINE: Yes cervical ROM normal Chest: COMMONS NORMALS: normal inspection of the chest and normal palpation of entire chest wall Resp: COMMON NORMALS: normal respiratory effort, No retractions, No use of accessory muscles and clear to auscultation bilaterally AUSCULTATION: clear to auscultation bilaterally Cardio: COMMON NORMALS: no JVD, regular rate, regular rhythm, S1 normal heart sound present, S2 normal heart sound present, No gallops present (Cardio), No clicks present (Cardio) and No murmurs present (Cardio) RATE: regular rate RHYTHM: regular rhythm HEART SOUNDS: S1 normal heart sound present and S2 normal heart sound present GI: COMMON NORMALS: Normal to inspection, nondistended, normoactive bowel sounds present, Soft to palpation and no masses PALPATION: Yes Soft to palpation Back/Pelvis: COMMON NORMALS: thoracic and lumbar spine normal to inspection Extremity: COMMON NORMALS: normal to inspection, no joint enlargement and no clubbing, cyanosis or edema Neuro: SENSORIUM/ORIENTATION: Yes oriented to person SPEECH: speech normal GAIT: Yes Unable to assess gait OTHER: Abnormal court stenographer strength on the left. Sensations appear to be intact, though patient is poor at following commands and answering questions due to hard of hearing. Spontaneous eye movements. No nystagmus. Course 2 Vital Signs: Vital signs: Vital Signs Temperature 98.2 F 02/09/24 04:00 Pulse Rate 90 02/09/24 04:00 Respiratory Rate 20 H 02/09/24 04:00 Blood Pressure 179/88 02/09/24 04:00 Pulse Oximetry 93 02/09/24 04:00 Oxygen Delivery Me thod Room Air 02/09/24 04:00 MDM - Head Injury Lab Data 02/09/24 00:01 02/09/24 00:01 Radiology Impressions Cervical Spine CT 02/08/24 23:20 IMPRESSION: No acute cervical spine fracture or listhesis. Head CT 02/08/24 23:20 IMPRESSION: 1. No acute intracranial abnormality. 2. Soft tissue defect and hematoma along the left frontal skull orbit with no underlying skull fracture. 3. Small-vessel ischemic disease. 4. The left globe appears intact. Laboratory Results WBC 10.77 10^3/uL (3.29-11.43) 02/09/24 00:01 RBC 4.21 10^6/uL (3.85-5.65) 02/09/24 00:01 Hgb 12.90 g/dL (11.27-16.99) 02/09/24 00:01 Hct 38.5 % (36-47) 02/09/24 00:01 MCV 91.4 fl (85-98) 02/09/24 00:01 MCH 30.6 pg (27-33) 02/09/24 00:01 MCHC 33.5 g/dL (30-55) 02/09/24 00:01 RDW 13.1 % (12.1-15.1) 02/09/24 00:01 Plt Count 369 10^3/cmm (157-399) 02/09/24 00:01 MPV 9.3 fL (7.4-10.4) 02/09/24 00:01 Neut % (Auto) 81.8 % 02/09/24 00:01 Lymph % (Auto) 9.8 % 02/09/24 00:01 Mccormick % (Auto) 7.2 % 02/09/24 00:01 Eos % (Auto) 0.2 % 02/09/24 00:01 Baso % (Auto) 0.6 % 02/09/24 00:01 Neut # (Auto) 8.80 10^3/uL (1.8-7.7) H 02/09/24 00:01 Lymph # (Auto) 1.1 10^3/uL (0.8-4.8) 02/09/24 00:01 Mccormick # (Auto) 0.8 10^3/uL (0.2-0.9) 02/09/24 00:01 Eos # (Auto) 0.0 10^3/uL (0.0-0.8) 02/09/24 00:01 Baso # (Auto) 0.1 10^3/uL (0.0-0.1) 02/09/24 00:01 Nucleated RBC % (auto) 0 % 02/09/24 00: Nucleated RBCs # 0.0 /100WBC 02/09/24 00: PT 14.30 SECONDS (12.1-14.9) 02/09/24 00:01 INR 1.07 (0.8-1.2) 02/09/24 00:01 Sodium 137 mmol/L (136-145) 02/09/24 00:01 Potassium 3.6 mmol/L (3.5-5.1) 02/09/24 00:01 Chloride 101 mmol/L (98-107) 02/09/24 00:01 Carbon Dioxide 23 mmol/L (22-29) 02/09/24 00: Anion Gap 16.6 (5-19) 02/09/24 00: BUN 11 mg/dL (8-23) 02/09/24 00:01 Creatinine 0.7 mg/dL (0.5-0.9) 02/09/24 00: GFR Calculation Not Reportable 02/09/24 00: Glucose 125 mg/dL (65-115) H 02/09/24 00:01 Calculated Osmolality 285 mOsm/kg (285-295) 02/09/24 00: Calcium 9.1 mg/dL (8.5-10.5) 02/09/24 00: Magnesium 1.8 mg/dL (1.7-2.3) 02/09/24 00:01 Total Bilirubin 0.9 mg/dL (0.15-1.2) 02/09/24 00:01 AST 23 U/L (0-32) 02/09/24 00:01 ALT 18 U/L (0-33) 02/09/24 00:01 Alkaline Phosphatase 119 U/L (35-105) H 02/09/24 00:01 Total Protein 6.9 g/dL (6.6-8.7) 02/09/24 00: Albumin 3.7 g/dL (3.5-5.2) 02/09/24 00:01 Globulin 3.2 g/dL (1.3-4.6) 02/09/24 00:01 Discharge Plan Discharge Patient Disposition: Admitted As Inpatient Admit Provider: Raleigh Guerrier Clinical Impression: Acute alteration in mental status, Accidental fall Condition: Stable Coding Level of Care Code ED Renal Social Worker for Chg Fwd Documented by User: Joe Muhammad MD 02/09/24 00:44 HPI - Head Injury 2 General: Chief complaint: Fall Stated complaint: head lac, fall Time Seen by Provider: 02/08/24 23:21 PFS ED 2 PFSH: Medical History Fall Hypertension Surgical History Hx of eye surgery Family History Other Cancer Social History Smoking and tobacco/nicotine status: never used tobacco/nicotine Alcohol intake: never Substance/Drug Use: never Caregiver/support person: No Lives independently: No Household members: family Sexually active: Yes Do you think of yourself as: Straight/Heterosexual Current gender identity: Female Course 2 Vital Signs: Vital signs: Vital Signs Temperature 98.2 F 02/09/24 04:00 Pulse Rate 90 02/09/24 04:00 Respiratory Rate 20 H 02/09/24 04:00 Blood Pressure 179/88 02/09/24 04:00 Pulse Oximetry 93 02/09/24 04:00 Oxygen Delivery Me thod Room Air 02/09/24 04:00 MDM - Head Injury Medcial Decision Making I discussed the patient's history of present illness, physical exam findings, pertinent labs, pertinent radiographic exams and plan of care with the midlevel provider. I did personally have a [id number] evaluation and discussion with the patient regarding the plan of care and the need for further admission/transfer. Patient was seen here in the emergency department on 02/07/2024 for an accidental fall she returns today with another fall she does had a moderate laceration to the scalp where she previously had a hematoma. I do agree with admission to the hospital for additional evaluation and treatment and to address any social limitations that she may have at her home. Medical Records I reviewed the patient's medical records. Lab Data I reviewed the patient's lab results. 02/09/24 00:01 02/09/24 00:01 Radiology Impressions Cervical Spine CT 02/08/24 23:20 IMPRESSION: No acute cervical spine fracture or listhesis. Head CT 02/08/24 23:20 IMPRESSION: 1. No acute intracranial abnormality. 2. Soft tissue defect and hematoma along the left frontal skull orbit with no underlying skull fracture. 3. Small-vessel ischemic disease. 4. The left globe appears intact. Laboratory Results WBC 10.77 10^3/uL (3.29-11.43) 02/09/24 00:01 RBC 4.21 10^6/uL (3.85-5.65) 02/09/24 00:01 Hgb 12.90 g/dL (11.27-16.99) 02/09/24 00:01 Hct 38.5 % (36-47) 02/09/24 00:01 MCV 91.4 fl (85-98) 02/09/24 00:01 MCH 30.6 pg (27-33) 02/09/24 00:01 MCHC 33.5 g/dL (30-55) 02/09/24 00:01 RDW 13.1 % (12.1-15.1) 02/09/24 00:01 Plt Count 369 10^3/cmm (157-399) 02/09/24 00:01 MPV 9.3 fL (7.4-10.4) 02/09/24 00:01 Neut % (Auto) 81.8 % 02/09/24 00:01 Lymph % (Auto) 9.8 % 02/09/24 00:01 Mccormick % (Auto) 7.2 % 02/09/24 00:01 Eos % (Auto) 0.2 % 02/09/24 00:01 Baso % (Auto) 0.6 % 02/09/24 00:01 Neut # (Auto) 8.80 10^3/uL (1.8-7.7) H 02/09/24 00:01 Lymph # (Auto) 1.1 10^3/uL (0.8-4.8) 02/09/24 00:01 Mccormick # (Auto) 0.8 10^3/uL (0.2-0.9) 02/09/24 00:01 Eos # (Auto) 0.0 10^3/uL (0.0-0.8) 02/09/24 00:01 Baso # (Auto) 0.1 10^3/uL (0.0-0.1) 02/09/24 00:01 Nucleated RBC % (auto) 0 % 02/09/24 00: Nucleated RBCs # 0.0 /100WBC 02/09/24 00:01 PT 14.30 SECONDS (12.1-14.9) 02/09/24 00:01 INR 1.07 (0.8-1.2) 02/09/24 00:01 Sodium 137 mmol/L (136-145) 02/09/24 00:01 Potassium 3.6 mmol/L (3.5-5.1) 02/09/24 00:01 Chloride 101 mmol/L (98-107) 02/09/24 00:01 Carbon Dioxide 23 mmol/L (22-29) 02/09/24 00:01 Anion Gap 16.6 (5-19) 02/09/24 00:01 BUN 11 mg/dL (8-23) 02/09/24 00:01 Creatinine 0.7 mg/dL (0.5-0.9) 02/09/24 00:01 GFR Calculation Not Reportable 02/09/24 00: Glucose 125 mg/dL (65-115) H 02/09/24 00:01 Calculated Osmolality 285 mOsm/kg (285-295) 02/09/24 00:01 Calcium 9.1 mg/dL (8.5-10.5) 02/09/24 00:01 Magnesium 1.8 mg/dL (1.7-2.3) 02/09/24 00:01 Total Bilirubin 0.9 mg/dL (0.15-1.2) 02/09/24 00:01 AST 23 U/L (0-32) 02/09/24 00:01 ALT 18 U/L (0-33) 02/09/24 00:01 Alkaline Phosphatase 119 U/L (35-105) H 02/09/24 00:01 Total Protein 6.9 g/dL (6.6-8.7) 02/09/24 00:01 Albumin 3.7 g/dL (3.5-5.2) 02/09/24 00:01 Globulin 3.2 g/dL (1.3-4.6) 02/09/24 00:01 All radiology interpretation(s) finalized by discharge Discharge Plan Discharge Patient Disposition: Admitted As Inpatient Admit Provider: Raleigh Guerrier Clinical Impression: Acute alteration in mental status, Accidental fall Condition: Stable Coding Level of Care Code ED Renal Social Worker for Chg Fwd Documented by User: Buck Ho DO 02/09/24 06:18 HPI - Head Injury 2 General: Chief complaint: Fall Stated complaint: head lac, fall Time Seen by Provider: 02/08/24 23:21 [facility] ED 2 PFSH: Medical History Fall Hypertension Surgical History Hx of eye surgery Family History Other Cancer Social History Smoking and tobacco/nicotine status: never used tobacco/nicotine Alcohol intake: never Substance/Drug Use: never Caregiver/support person: No Lives independently: No Household members: family Sexually active: Yes Do you think of yourself as: Straight/Heterosexual Current gender identity: Female Course 2 Vital Signs: Vital signs: Vital Signs Temperature 98.2 F 02/09/24 04:00 Pulse Rate 90 02/09/24 04:00 Respiratory Rate 20 H 02/09/24 04:00 Blood Pressure 179/88 02/09/24 04:00 Pulse Oximetry 93 02/09/24 04:00 Oxygen Delivery Me thod Room Air 02/09/24 04:00 MDM - Head Injury Medcial Decision Making I discussed the patient's history of present illness, physical exam findings, pertinent labs, pertinent radiographic exams and plan of care with the midlevel provider. I did personally have a [id number] evaluation and discussion with the patient regarding the plan of care and the need for further admission/transfer. Patient was seen here in the emergency department on 02/07/2024 for an accidental fall she returns today with another fall she does had a moderate laceration to the scalp where she previously had a hematoma. I do agree with admission to the hospital for additional evaluation and treatment and to address any social limitations that she may have at her home. Chart reviewed Lab Data 02/09/24 00:01 02/09/24 00:01 Radiology Impressions Cervical Spine CT 02/08/24 23:20 IMPRESSION: No acute cervical spine fracture or listhesis. Head CT 02/08/24 23:20 IMPRESSION: 1. No acute intracranial abnormality. 2. Soft tissue defect and hematoma along the left frontal skull orbit with no underlying skull fracture. 3. Small-vessel ischemic disease. 4. The left globe appears intact. Laboratory Results WBC 10.77 10^3/uL (3.29-11.43) 02/09/24 00:01 RBC 4.21 10^6/uL (3.85-5.65) 02/09/24 00:01 Hgb 12.90 g/dL (11.27-16.99) 02/09/24 00:01 Hct 38.5 % (36-47) 02/09/24 00:01 MCV 91.4 fl (85-98) 02/09/24 00:01 MCH 30.6 pg (27-33) 02/09/24 00:01 MCHC 33.5 g/dL (30-55) 02/09/24 00:01 RDW 13.1 % (12.1-15.1) 02/09/24 00:01 Plt Count 369 10^3/cmm (157-399) 02/09/24 00:01 MPV 9.3 fL (7.4-10.4) 02/09/24 00:01 Neut % (Auto) 81.8 % 02/09/24 00:01 Lymph % (Auto) 9.8 % 02/09/24 00:01 Mccormick % (Auto) 7.2 % 02/09/24 00:01 Eos % (Auto) 0.2 % 02/09/24 00:01 Baso % (Auto) 0.6 % 02/09/24 00:01 Neut # (Auto) 8.80 10^3/uL (1.8-7.7) H 02/09/24 00:01 Lymph # (Auto) 1.1 10^3/uL (0.8-4.8) 02/09/24 00:01 Mccormick # (Auto) 0.8 10^3/uL (0.2-0.9) 02/09/24 00:01 Eos # (Auto) 0.0 10^3/uL (0.0-0.8) 02/09/24 00:01 Baso # (Auto) 0.1 10^3/uL (0.0-0.1) 02/09/24 00:01 Nucleated RBC % (auto) 0 % 02/09/24 00:01 Nucleated RBCs # 0.0 /100WBC 02/09/24 00:01 PT 14.30 SECONDS (12.1-14.9) 02/09/24 00:01 INR 1.07 (0.8-1.2) 02/09/24 00:01 Sodium 137 mmol/L (136-145) 02/09/24 00:01 Potassium 3.6 mmol/L (3.5-5.1) 02/09/24 00:01 Chloride 101 mmol/L (98-107) 02/09/24 00:01 Carbon Dioxide 23 mmol/L (22-29) 02/09/24 00:01 Anion Gap 16.6 (5-19) 02/09/24 00:01 BUN 11 mg/dL (8-23) 02/09/24 00:01 Creatinine 0.7 mg/dL (0.5-0.9) 02/09/24 00:01 GFR Calculation Not Reportable 02/09/24 00:01 Glucose 125 mg/dL (65-115) H 02/09/24 00:01 Calculated Osmolality 285 mOsm/kg (285-295) 02/09/24 00:01 Calcium 9.1 mg/dL (8.5-10.5) 02/09/24 00:01 Magnesium 1.8 mg/dL (1.7-2.3) 02/09/24 00:01 Total Bilirubin 0.9 mg/dL (0.15-1.2) 02/09/24 00:01 AST 23 U/L (0-32) 02/09/24 00:01 ALT 18 U/L (0-33) 02/09/24 00:01 Alkaline Phosphatase 119 U/L (35-105) H 02/09/24 00:01 Total Protein 6.9 g/dL (6.6-8.7) 02/09/24 00:01 Albumin 3.7 g/dL (3.5-5.2) 02/09/24 00:01 Globulin 3.2 g/dL (1.3-4.6) 02/09/24 00:01 Discharge Plan Discharge Patient Disposition: Admitted As Inpatient Admit Provider: Raleigh Guerrier Clinical Impression: Acute alteration in mental status, Accidental fall Condition: Stable Coding Level of Care Code ED Renal Social Worker for Tahir Khalil
[2024-02-09] VITALS (9 sets, daily range): BP systolic 125–182; BP diastolic 78–100; PULSE 67–90; RESP 15–20; TEMP 36.2–36.9; O2SAT 92–97; BMI 28.2
[2024-02-09 00:12] LABS: Basophils # 0.1 10^3/uL (0.0-0.1); Basophils % 0.6 %; Eosinophils % 0.2 %; Hematocrit 38.5 % (36-47); Lymphocytes # 1.1 10^3/uL (0.8-4.8); Lymphocytes % 9.8 %; Mean Corpuscular HGB Conc 33.5 g/dL (30-55); Mean Corpuscular Hemoglobin 30.6 pg (27-33); Mean Corpuscular Volume 91.4 fl (85-98); Mean Platelet Volume 9.3 fL (7.4-10.4); Monocytes # 0.8 10^3/uL (0.2-0.9); Monocytes % 7.2 %; Neutrophils % 81.8 %; Nucleated Red Blood Cells % 0 %; Platelet Count 369 10^3/cmm (157-399); Red Blood Count 4.21 10^6/uL (3.85-5.65); Red Cell Distribution Width 13.1 % (12.1-15.1); White Blood Count 10.77 10^3/uL (3.29-11.43)
[2024-02-09 00:23] LABS: INR 1.07 (0.8-1.2)
[2024-02-09 00:28] LABS: Alanine Aminotransferase 18 U/L (0-33); Albumin Level 3.7 g/dL (3.5-5.2); Alkaline Phosphatase 119 U/L (35-105); Anion Gap 16.6 (5-19); Aspartate Amino Transferase 23 U/L (0-32); Blood Urea Nitrogen 11 mg/dL (8-23); Calcium 9.1 mg/dL (8.5-10.5); Carbon Dioxide 23 mmol/L (22-29); Chloride 101 mmol/L (98-107); Creatinine Clr Calc Pharmacy 52.3117; Globulin 3.2 g/dL (1.3-4.6); Glucose 125 mg/dL (65-115); Osmolality Calculated 285 mOsm/kg (285-295); Potassium 3.6 mmol/L (3.5-5.1); Sodium 137 mmol/L (136-145); Total Bilirubin 0.9 mg/dL (0.15-1.2); Total Protein 6.9 g/dL (6.6-8.7)
[2024-02-09] MEDS: hyDRALAzine 20 mg/mL INJ 1 mL 10 MG IVP ×2 (01:37→17:55)
[2024-02-09] MEDS: lidocaine 2% INJ 20 mL INJECTION (01:38)
[2024-02-09] MEDS: sodium chloride 0.9% 1,000 ML 100 ML IV ×3 (02:13→22:07)
--- NOTE | 2024-02-09 02:35 | P.HP_ITS ---
Providers/Chief Complaint 2 Admitting Physician: Raleigh Guerrier DO Primary Care Provider: Malcolm Paz Chief Complaint: head lac, fall History of Present Illness Geri Spencer is a 83 year old female with past medical history of hypertension tonight hitting her head. The patient was seen yesterday in the emergency department for a different closed head injury, where the CT scan of the head was negative overall workup was negative. At that time the patient's son reported he was in the process of finding placement for this patient as she has repeat falls and overall deterioration. The patient was discharged home. She had a large hematoma on her left forehead. Today when she fell again at home she hit her head exactly where her hematoma was yesterday. She had a substantial amount of bleeding and a laceration to that area. No reported loss of consciousness No family present at this time and patient is unable to give history. Review of Systems 2 General: Reports: ROS unobtainable due to mental status Medications/Allergies Home Medications Medication Instructions Recorded Confirmed Last Taken Type lisinopril 20 mg tablet 20 mg PO DAILY #90 tabs 09/02/23 12/28/23 Unknown Rx naproxen 500 mg tablet 500 mg PO BID PRN pain #14 tabs 09/29/23 12/28/23 Unknown Rx hydrocortisone 2.5 % topical cream 1 applic [place] DAILY PRN hemorrhoids 11/18/23 12/28/23 Unknown Rx with perineal applicator #30 grams (Proctosol HC) Allergies Allergy/AdvReac Type Severity Reaction Status Date / Time No Known Allergies Allergy Verified 12/28/23 09:35 PFSH Acute 2 PFSH: Medical History Fall Hypertension Surgical History Hx of eye surgery Family History Other Cancer Social History Smoking and tobacco/nicotine status: never used tobacco/nicotine Alcohol intake: never Substance/Drug Use: never Caregiver/support person: No Lives independently: No Household members: family Sexually active: Yes Do you think of yourself as: Straight/Heterosexual Current gender identity: Female Vitals/I&O/Wt Last Vital Signs Temp 97.1 F L 02/09/24 02:06 Pulse 70 02/09/24 02:06 Resp 16 02/09/24 02:06 BP 171/100 02/09/24 02:06 Pulse Ox 92 02/09/24 02:06 O2 Del Method Room Air 02/09/24 02:05 Weight last 48 hrs Weight 74.559 kg Weight 76.204 kg Physical Exam 2 Narrative: Pale elderly female in no distress at time of exam Neurologic: Patient is alert to self only her exam is nonfocal Head: Patient has a 3 and 6 laceration and hematoma above her left eye. There is sufficient edema to force her left eye closed Eyes: Right eye has pupillary function and a muscle movement. The left eye itself is intact when I lift the eyelid Nasopharyngeal: Mucous membranes are moist and pink without lesions or exudate. Patient has upper and lower dentures Neck supple no JVD carotid bruits or lymphadenopathy Heart is regular rate and rhythm without murmurs clicks gallops or rubs Lungs clear to auscultation anteriorly without wheezes rales or rhonchi Abdomen soft nontender nondistended positive bowel sounds no hepatosplenomegaly Extremities no clubbing cyanosis or edema Psych: Patient is pleasantly confused Back: No obvious kyphosis or scoliosis no CVA tenderness Skin: Severe fungal excoriation under bilateral breasts and under pannus, multiple bruising in various stages of healing on shoulders and arms Urinary Catheter Management: Blanco: Cath Placed During This Visit: yes Urinary Catheter Date of Insertion: 02/09/24 Urinary Catheter Time of Insertion: 02:00 Data 02/09/24 00:01 02/09/24 00:01 CT Head: Radiologist's impression: IMPRESSION: 1. No acute intracranial abnormality. 2. Soft tissue defect and hematoma along the left frontal skull orbit with no underlying skull fracture. 3. Small-vessel ischemic disease. 4. The left globe appears intact. Other CT: My impression: CT cervical spine Radiologist's impression: No acute cervical spine fracture or with listhesis A&P Assessment and plan (1) Fall: Multiple falls Family seeking senior care placement Will consult case management to assist Qualifiers: Encounter type: initial encounter Qualified Code(s): W19.XXXA - Unspecified fall, initial encounter (2) Acute alteration in mental status: Unsure of patient's baseline (3) Hematoma of frontal scalp: Qualifiers: Encounter type: initial encounter Qualified Code(s): S00.03XA - Contusion of scalp, initial encounter (4) Laceration: Suturing completed in emergency room (5) Hypertension: Blood pressures are significantly elevated. Patient required hydralazine in the emergency room Increase lisinopril from 20 mg once a day to 20 mg twice a day Add hydralazine IV as needed Qualifiers: Hypertension type: primary hypertension Qualified Code(s): I10 - Essential (primary) hypertension Plan If patient is unable to be cared for at home she has had multiple falls and today sustained an injury. Patient has severe skin breakdown under her breast and under her pannus requiring treatment There is a comment for her to be placed in assisted living however it appears senior care placement is appropriate. PT OT assess and treat Attestations 2 Medical Necessity Statement*: Patient will require greater than 2 midnight stay to diagnose patient's altered mental status and adequately treat patient's accelerated hypertension. Coding Level of Care Code Acute Code for Chg Fwd Diagnoses Fall W19.XXXA Encounter type: initial encounter Acute alteration in mental status R41.82 Hematoma of frontal scalp S00.03XA Encounter type: initial encounter Laceration Primary hypertension I10 Hypertension type: primary hypertension
[2024-02-09] MEDS: enoxaparin 40 mg/0.4 mL Syringe SUBCUT (03:15)
[2024-02-09 03:26] LABS: Magnesium 1.8 mg/dL (1.7-2.3)
[2024-02-09] MEDS: ketorolac 30 mg/mL INJ IVP (03:41)
[2024-02-09 06:27] LABS: Glucose Point of Care 103 mg/dL (70-110)
[2024-02-09] MEDS: nystatin powder 15 gm Btl 1 APPLIC TOPICAL ×2 (08:27→17:33)
--- NOTE | 2024-02-09 08:31 | PC.PHAR ---
pt unable to verify medications-called pts son altagracia [phone] no answer-medications entered are from what ext med history shows has been filled notes are made in the pharmacy comments with last fill dates
--- NOTE | 2024-02-09 08:32 | PC.NURSE ---
Pt responds to verbal stimuli; however, she is unable to follow commands. Pt is unable to follow command of swallowing medication on multiple attempts.
--- NOTE | 2024-02-09 11:46 | PC.OT ---
OT EVALUATION ATTEMPTED; PATIENT YELLING HELP FROM HER BED. STATES THAT SHE IS COLD; BLANKET APPLIED AND HEAT TURNED UP IN ROOM. THERAPIST MAKES MULTIPLE REQUESTS FOR PATIENT TO STATE NAME AND AND SHE STARES AT THE THERAPIST AND YELLS HELP ME . THERAPIST TELLS THE PATIENT THAT SHE DOES NOT NEED TO YELL I AM STANDING RIGHT BESIDE HER BED. WHEN ASKED WHAT SHE NEEDS HELP WITH, SHE STARES BLANKLY AND YELLS HELP ME AGAIN. THERAPIST ASKS THE PATIENT IF SHE WAS STILL COLD, IF SHE WAS IN PAIN, IF SHE NEEDED TO USE THE BATHROOM. PATIENT'S CONTINUED RESPONSE WAS HELP ME BUT UNABLE TO STATE WHAT SHE NEEDED HELP WITH OR FOLLOW ANY DIRECTIONS OF THERAPIST. PATIENT INSTRUCTED IN USE OF CALL LIGHT. BED ALARM REMAINS SET AND ALL NEEDS IN REACH. NURSING INFORMED OF SITUATION.
--- NOTE | 2024-02-09 15:18 | PM.PN ---
Subjective Subjective: She is being admitted overnight with history of fall and left forehead hematoma and laceration . seen at bedside this morning. She has a left forehead hematoma and laceration which is packed. She seems confused disoriented and unable to follow verbal commands. Medications: Reviewed: Yes Vitals/I&O/Wt Last Vital Signs Temp 98.5 F 02/09/24 11:43 Pulse 80 02/09/24 11:43 Resp 16 02/09/24 11:43 BP 174/85 02/09/24 11:43 Pulse Ox 97 02/09/24 11:43 O2 Del Method Room Air 02/09/24 11:43 02/09/24 02/09/24 02/09/24 06:59 14:59 22:59 Intake Total 120 / 120 891.667 / 891.667 Output Total 150 / 150 Balance -30 / -30 891.667 / 891.667 Weight last 48 hrs Weight 76.742 kg Weight 74.559 kg Weight 76.204 kg Physical Exam Narrative: Pale elderly female in no distress at time of exam Neurologic: Patient is alert to self only her exam is nonfocal Head: Patient has a 3 x 6 laceration and hematoma above her left eye. There is sufficient edema to force her left eye closed Eyes: Right eye has pupillary function and a muscle movement. The left eye itself is intact when I lift the eyelid Heart is regular rate and rhythm Lungs clear to auscultation b/l Abdomen soft nontender nondistended normal bowel sounds Extremities no edema Psych: Patient is pleasantly confused Skin: Severe fungal excoriation under bilateral breasts and under pannus, multiple bruising in various stages of healing on shoulders and arms Urinary Catheter Management: Blanco: Cath Placed During This Visit: yes Reason for Continuing Indwelling Catheter: Other Urinary Catheter Date of Insertion: 02/09/24 Urinary Catheter Time of Insertion: 02:00 Data 02/09/24 00:01 02/09/24 00:01 A&P Assessment and plan (1) Fall: Qualifiers: Encounter type: initial encounter Qualified Code(s): W19.XXXA - Unspecified fall, initial encounter (2) Acute alteration in mental status: (3) Hematoma of frontal scalp: Qualifiers: Encounter type: initial encounter Qualified Code(s): S00.03XA - Contusion of scalp, initial encounter (4) Laceration: (5) Hypertension: Qualifiers: Hypertension type: primary hypertension Qualified Code(s): I10 - Essential (primary) hypertension Plan 83-year-old female with history of hypertension brought in by family s/p fall at home and injury to left forehead with active bleeding . She was recently brought to the ER 2 days ago for similar fall at home and had a left forehead hematoma . On arrival to ER she was found to have a laceration in the same hematoma and there was significant bleeding present .suturing done in ER and and packing done . 1. Fall likely mechanical secondary to unsteadiness and gait abnormalities. Follow-up PT eval Rule out infectious causes, will repeat urine analysis Continue IV fluids normal saline at 100 ml/h for now. 2. Hypertension-uncontrolled Continue lisinopril 20 mg twice daily IV hydralazine 10 mg every 4 hours as needed. 3. Cardiac diet 4. DVT prophylaxis subcutaneous Lovenox 40 mg daily 5. GI prophylaxis with IV Pepcid 20 mg twice daily 6. She is full code for now 7. Family seeking skilled nursing placement Will follow up case management to assist Attestations Medical Necessity Statement*: Patient will require greater than 2 midnight stay to diagnose patient's altered mental status and adequately treat patient's accelerated hypertension. Time Spent in Patient Care: 15 minutes Coding Level of Care Code Acute Code for Chg Fwd Diagnoses Fall W19.XXXA Encounter type: initial encounter Acute alteration in mental status R41.82 Hematoma of frontal scalp S00.03XA Encounter type: initial encounter Laceration Primary hypertension I10 Hypertension type: primary hypertension Time Spent (min) 15
[2024-02-09 15:48] LABS: Add Urine Microscopic? YES; Bilirubin Urine Neg (Negative); Blood Urine 3+ (Negative); Glucose Urine UA Norm (Normal); Ketones Urine 2+ (Negative); Leukocyte Esterase Urine Negative (Negative); Nitrate Urine Negative (Negative); Protein Urine Neg (Negative); Specific Gravity, Urine 1.015 (1.005-1.030); Urine Appearance Hazy (CLEAR); Urine Color Dark Yellow (Yellow); Urobilinogen Urine 4 mg/dL (Negative); pH Urine 7 (5-7)
[2024-02-09 16:04] LABS: RBC Urine 25-40 /hpf (0-2)
[2024-02-09 16:05] LABS: Add Urine Culture? Yes; Bacteria Urine 1+ /hpf; Mucus Urine 2+ /hpf; Squamous Epithelial Cell Urine 0-4 /hpf (0-5)
[2024-02-09] MEDS: famotidine 20 mg/2 mL INJ IVP (16:22)
--- NOTE | 2024-02-09 17:37 | PC.NURSE ---
As this shift has progressed, pt remains confused; however, children arrive and pt is beginning to follow some commands. As pt is able to be more accurately assessed, this RN notes that there is severe left sided weakness. The left arm is completely flaccid, without any movement. Left leg appears to have minimal movement. Daughter attempts to feed pt Jello, and pt begins coughing after Jello given. Pt also noted to have increased BP; however, she is unable to swallow medication d/t inability to follow commands. This RN immediately notifies Dr. Chen of findings. New orders entered - MRI, NPO, Speech Eval & Treat, Swallow Study, and Hydralizine 10mg Q6H PRN.
--- NOTE | 2024-02-09 18:53 | W.PM.EVENTAC ---
Event Note Event Note: Patient was found to have left-sided upper and lower extremity weakness. As per the son who is at bedside reports she has been having leg issues since last 6 months and has been falling more frequently for the last 6 months. It has been 4 to 5 days that they have noticed that the left upper extremity is weak and she has not been eating for the last 4 days. Concern for subacute stroke, although recent CT head did not show any acute intracranial abnormalities. Will get an MRI head without contrast, speech and swallow eval, discontinue subcutaneous Lovenox and will do sequential compression devices for DVT prophylaxis Blood pressure control with IV hydralazine 10 mg every 4 hours as needed if blood pressure more than 150/90 After speaking with the family at bedside there is a concern for stroke, will follow-up MRI in a.m. Event Notes Attestations Time Spent in Patient Care: 25 minutes
[2024-02-10 04:00] VITALS: BP 182/88; PULSE 82; RESP 20; TEMP 36.8; O2SAT 92
[2024-02-10] MEDS: famotidine 20 mg/2 mL INJ IVP ×2 (04:15→16:30)
[2024-02-10] MEDS: hyDRALAzine 20 mg/mL INJ 1 mL 10 MG IVP ×2 (05:10→20:25)
[2024-02-10 05:15] LABS: Basophils # 0.1 10^3/uL (0.0-0.1); Basophils % 0.7 %; Eosinophils # 0.1 10^3/uL (0.0-0.8); Hematocrit 36.4 % (36-47); Lymphocytes # 1.3 10^3/uL (0.8-4.8); Mean Corpuscular HGB Conc 32.7 g/dL (30-55); Mean Corpuscular Volume 94.8 fl (85-98); Mean Platelet Volume 9.5 fL (7.4-10.4); Monocytes # 0.7 10^3/uL (0.2-0.9); Monocytes % 7.9 %; Neutrophils # 6.53 10^3/uL (1.8-7.7); Neutrophils % 74.8 %; Nucleated Red Blood Cells % 0 %; Platelet Count 357 10^3/cmm (157-399); Red Blood Count 3.84 10^6/uL (3.85-5.65); Red Cell Distribution Width 13.4 % (12.1-15.1); White Blood Count 8.73 10^3/uL (3.29-11.43)
[2024-02-10 05:37] LABS: Blood Urea Nitrogen 12 mg/dL (8-23); Calcium 8.5 mg/dL (8.5-10.5); Carbon Dioxide 21 mmol/L (22-29); Chloride 105 mmol/L (98-107); Glucose 88 mg/dL (65-115); Osmolality Calculated 285 mOsm/kg (285-295); Sodium 138 mmol/L (136-145)
[2024-02-10 05:38] LABS: Anion Gap 15.5 (5-19); Potassium 3.5 mmol/L (3.5-5.1)
[2024-02-10 08:00] VITALS: BP 163/78; PULSE 79; RESP 18; TEMP 36.8; O2SAT 92
[2024-02-10] MEDS: sodium chloride 0.9% 1,000 ML 100 ML IV (08:22)
[2024-02-10] MEDS: nystatin powder 15 gm Btl 1 APPLIC TOPICAL ×2 (08:56→20:58)
--- NOTE | 2024-02-10 09:30 | MR_ITS ---
WS: [id number] MRI BRAIN WITHOUT CONTRAST HISTORY: left sided weakness COMPARISON: CT head 02/08/2024 TECHNIQUE: Diffusion imaging, multiplanar T1, T2 and FLAIR imaging obtained. Numerous diffusion abnormalities are noted involving the RIGHT cerebrum. Multiple foci of ischemic di sease involving the cortex of the RIGHT frontal, parietal lobes and also extending inferiorly through the centrum semiovale and garcia radiata and along the insular ribbon. No diffusion abnormalities wi thin the LEFT brain. Additional moderate volume loss and additional chronic small vessel ischemic type changes with small remote lacunar infarcts bilaterally. No large territory infarct. No hemosiderin. Mild chronic ischemi c change in the sergio. Ventricles and extra-axial spaces are prominent on the basis of atrophy. No inferior displacement of cerebellar tonsils. The sella turcica and pituitary gland are unremarkabl e. Dural venous sinuses and kaibab of [place] demonstrate no abnormality on this unenhanced studies. Flow voids within the middle cerebral arteries and the carotid arteries are difficult to assess with this amount of motion. Flow voids appear appropriate through the cavernous carotid arteries. Paranasal sinuses: Clear. Mastoid air cells: Normal. Calvarium and scalp: Intact. IMPRESSION: 1. Acute ischemic infarct in the RIGHT cerebrum. There is extensive ischemic involvement of the MCA territory. Predominantly cortical-based with additional areas of deeper white matter ischemic event. No hemorrhage. No midline shift. 2. Additional superimposed advanced small vessel ischemic disease and small lacunar infarcts. 3. Moderate atrophy.
--- NOTE | 2024-02-10 09:30 | FL_ITS ---
WS: [id number] Exam: FL barium swallow modifd [id number] Date/Time of Exam: 02/10/2024 11:34 AM Reason For Exam: Other dysphagia Fluoroscopy time: Minutes # of spot films: 0 Modified barium swallow test was performed in conjunction with the speech therapy service. The patient experienced significant difficulty initiating swallowing specifically elevating the tongu e of the hard palate to initiate the swallowing process. There was penetration into the laryngeal inl et when swallowing thin liquid barium solutions. The patient had considerable difficulty swallowing p udding consistency of barium mixture foodstuffs also. No aspiration was observed during the exam. IMPRESSION: 1. Oral pharyngeal phase of swallowing demonstrated significant difficulty initiating the swallowing process. See above discussion. 2. Penetration into the laryngeal inlet was identified when the patient swallowed thin liquid barium solutions. This patient is probably at increased risk for aspiration. A separate report and detailed recommendations will follow from the speech therapy service.
[2024-02-10 11:18] LABS: Glucose Point of Care 85 mg/dL (70-110)
--- NOTE | 2024-02-10 11:49 | CT_ITS ---
WS: [id number] CTA HEAD AND NECK TECHNIQUE: Contrast enhanced CTA of the head and neck with coronal and sagittal reformatted images an d maximum intensity projection (MIP) images. NASCET criteria utilized. CLINICAL INFORMATION: Stroke on MRI COMPARISON: MRI 02/10/2024 DLP: 970.[address] scans at [facility] use at least one of these dose optimization techniques: automated e xposure control; mA and/or kV adjustment per patient size (includes targeted exams where dose is matc hed to clinical indication); or iterative reconstruction. FINDINGS: No evidence of intracranial hemorrhage. Moderate small vessel changes. Moderate parenchymal volume l oss. Intracranial vascular calcification. Paranasal sinuses and mastoid air cells are well aerated. R ecent infarcts better seen on the MRI 02/10/2024 Multiple chronic infarcts in the LEFT greater than RIGHT cerebellum. Chronic lacunar infarct RIGHT th alamus. Intracranial vascular calcification. Soft tissue edema overlying the LEFT frontal calvarium a nd LEFT facial soft tissues RIGHT: RIGHT common carotid artery is patent. RIGHT carotid origin not entirely included on this stud y. Moderate calcified atheromatous plaque RIGHT carotid bulb extending into the ICA. Retropharyngeal course of the RIGHT cervical ICA. RIGHT ICA is patent to the skull base. Mild cavernous carotid calci fication. LEFT: LEFT common carotid artery is patent. Mild calcified atheromatous plaque LEFT carotid bulb. LEF T ICA is patent to the skull base. Tortuous ICA at the skull base. Mild cavernous carotid calcificati on. Both vertebral arteries are patent. Basilar artery is patent. Persistent RIGHT IRON PILER. IRON PILER vessels appear patent. Moderate intracranial atheromatous disease. Mild segmental narrowing in the M1 segments bilaterally w hich remain patent. No proximal flow-limiting stenosis. Moderate spondylitic changes cervical spine. IMPRESSION: 1. Both ICAs are patent to the skull base. 2. Moderate intracranial atheromatous disease with mild segmental narrowing in the M1 segments. No p roximal flow-limiting stenosis. 3. Basilar artery is patent. 4. Vertebral arteries are patent. Discussed with Dr. Danielle at 02/10/2024 1:30 PM.
[2024-02-10] MEDS: iohexol 350 mg/mL 500 mL Btl (per mL) IV (12:25)
--- NOTE | 2024-02-10 12:54 | PM.CONSULT ---
Providers/Reason For Consult Consulting Physician/Specialty*: Jw Danielle MD neurology and epilepsy Reason for Consult*: Right MCA distribution stroke 02/08/2024 versus 02/09/2024 Attending Physician: Marium Chen MD Primary Care Provider: Malcolm Paz History of Present Illness History of Present Illness Geri Spencer is a 83 year old female who sustained closed head trauma related to a fall on 02/07/2024. Patient was evaluated in the emergency room and released. Patient was reported to return to the emergency room secondary to left forehead bleeding. The patient was admitted on 02/08/2024. On 02/09/2024 the patient was noted by the nurse to have some left-sided weakness and when the patient was evaluated by the physical therapist on 02/09/2024 at around 5:30 PM patient was reported to have left-sided paralysis with right gaze preference. Noncontrast head CT performed on 02/07/2024 revealed no acute findings but there was report of Left frontal scalp/periorbital contusion with an approximately 3 cm scalp hematoma. Repeat noncontrast head CT performed on 02/08/2024 revealed No acute intracranial abnormality. Soft tissue defect and hematoma along the left frontal skull orbit with no underlying skull fracture. Head MRI performed on 02/10/2024 revealed 1. Acute ischemic infarct in the RIGHT cerebrum. There is extensive ischemic involvement of the MCA territory. Predominantly cortical-based with additional areas of deeper white matter ischemic event. No hemorrhage. No midline shift. Additional superimposed advanced small vessel ischemic disease and small lacunar infarcts. Moderate atrophy. As a result, a neurology consult was obtained. Since the patient's last known well was reported to be 02/09/2024, patient was not a candidate for intravenous thrombolytics and patient has history of closed head trauma which is also a contraindication for intravenous thrombolytics. I recommended the attending physician order CT angiogram of the head and neck to assess for right MCA distribution thrombus to determine if patient is a candidate for thrombectomy. On neurological evaluation on 02/10/2024 NIH score = 15 (secondary to right gaze preference with inability of the patient to look past the midline to the left. Obvious left lower facial weakness, paralysis in the left arm and left leg, clumsiness/coordination issues in the left arm and left leg, dysarthria and left-sided neglect). Serum glucose 88 on 02/10/2024. According to the nurse caring for the patient on [facility] floor room 264 bed #1, the patient had barium swallow study performed on 02/10/2024 and patient failed a barium swallow study. Drug allergies: None Past medical history Hypertension Hard of hearing Macular degeneration left eye Bilateral bunions Peripheral artery disease Basal cell carcinoma Toenail fungus Current medications: Hydralazine 10 mg IV every 6 hours as needed IV Pepcid 20 mg every 12 hour Lisinopril 20 mg p.o. twice daily Lovenox 40 mg subcutaneously every 24 hours (discontinued) Zofran 4 mg IV every 8 hours as needed Toradol 30 mg IV every 6 hours as needed Ibuprofen 400 mg every 6 hours as needed Tylenol 650 mg p.o. every 6 hours as needed Habits: None Family history: Unknown Review of Systems General: Reports: 10 or more systems reviewed and unremarkable except in HPI and below Medications/Allergies Home Medications Medication Instructions Recorded Confirmed Last Taken Type lisinopril 20 mg tablet 20 mg PO DAILY #90 tabs 09/02/23 02/09/24 Unknown Rx naproxen 500 mg tablet 500 mg PO BID PRN pain #14 tabs 09/29/23 02/09/24 Unknown Rx hydrocortisone 2.5 % topical cream 1 applic OK DAILY PRN hemorrhoids 11/18/23 02/09/24 Unknown Rx with perineal applicator #30 grams (Proctosol HC) Allergies Allergy/AdvReac Type Severity Reaction Status Date / Time No Known Allergies Allergy Verified 12/28/23 09:35 Current Medications Generic Name Dose Route Start Last Admin Trade Name Freq PRN Reason Stop Dose Admin Famotidine 20 mg 02/09/24 16:30 02/10/24 04:15 Famotidine 20 Mg/2 Ml Inj IVP 20 mg Q12H GEORGE Administration Hydralazine HCl 10 mg 02/09/24 02:33 02/10/24 05:10 Hydralazine 20 Mg/Ml Inj 1 Ml IVP 10 mg Q4H PRN Administration HYPERTENSION Sodium Chloride 1,000 mls @ 100 mls/hr 02/09/24 00:45 02/10/24 08:22 Sodium Chloride 0.9% IV 100 mls/hr .Q10H GEORGE Administration Ketorolac Tromethamine 30 mg 02/09/24 02:27 02/09/24 03:41 Ketorolac 30 Mg/Ml Inj IVP 02/14/24 02:26 30 mg Q6H PRN Administration MODERATE PAIN Lisinopril 20 mg 02/09/24 09:00 02/10/24 08:56 Lisinopril 20 Mg Tablet PO Not Given BID GEORGE Nystatin 1 applic 02/09/24 09:00 02/10/24 08:56 Nystatin Powder 15 Gm Btl TOPICAL 1 applic BID GEORGE Administration PFSH Acute PFSH: Medical History Fall Hypertension Surgical History Hx of eye surgery Family History Other Cancer Social History Smoking and tobacco/nicotine status: never used tobacco/nicotine Alcohol intake: never Substance/Drug Use: never Caregiver/support person: No Lives independently: No Household members: family Sexually active: Yes Do you think of yourself as: Straight/Heterosexual Current gender identity: Female Vitals/I&O/Wt Last Vital Signs Temp 98.3 F 02/10/24 08:00 Pulse 79 02/10/24 08:00 Resp 18 02/10/24 08:00 BP 163/78 02/10/24 08:00 Pulse Ox 92 02/10/24 08:00 O2 Del Method Room Air 02/10/24 04:00 02/09/24 02/10/24 02/10/24 22:59 06:59 14:59 Intake Total 1000 / 1653.835 2278 / 1000 Output Total 350 / 350 400 / 750 Balance 650 / 1541.667 -400 / 1254.100 2789 / 1000 Weight last 48 hrs Weight 171 lb 4 oz Weight 169 lb 3 oz Weight 164 lb 6 oz Weight 168 lb Physical Exam Narrative: NIH score = 15 NIH score = 15 (secondary to right gaze preference with inability of the patient to look past the midline to the left. Obvious left lower facial weakness, paralysis in the left arm and left leg, clumsiness/coordination issues in the left arm and left leg, dysarthria and left-sided neglect). Serum glucose 88 on 02/10/2024. The patient is alert. Speech is dysarthric. Patient answered both questions correctly and was able to follow commands. Patient has obvious left lower facial weakness. Right pupil 4 mm round reactive to light and accommodation. Left pupil patch. Patient had right gaze preference with inability to move the right eye past midline when looking to the left. Motor testing revealed left upper and left lower extremity paralysis. Deep tendon reflexes 1-2+ bilaterally plantar responses flexor bilaterally. There was no clonus. Sensory examination was intact to touch. There was extinction on double sensory stimulation on the left with neglect on the left. Throat clear. Lungs clear. Heart regular rhythm and rate. Extremities were negative for cyanosis. According to the nurse caring for the patient on [facility] floor room 264 bed #1, the patient had barium swallow study performed on 02/10/2024 and patient failed a barium swallow study. Urinary Catheter Management: Blanco: Cath Placed During This Visit: yes Reason for Continuing Indwelling Catheter: Other Urinary Catheter Date of Insertion: 02/09/24 Urinary Catheter Time of Insertion: 02:00 Data 02/10/24 05:06 02/10/24 05:06 A&P Assessment and plan (1) Acute right MCA stroke: Impression: 1. Acute right MCA distribution stroke with NIH score =15 reported to occur on 02/09/2024. Note: In view of the patient's last known well being 02/09/2024 at 5:30 PM noted by the physical therapist, and history of significant closed head trauma, the patient was not a candidate for intravenous thrombolytic and therefore no intravenous thrombolytics were administered. CT angiogram of the head and neck was ordered stat on 02/10/2024 to assess for right MCA distribution thrombosis to determine if patient is a candidate for thrombectomy 2. Abnormal head MRI 02/10/2024 Acute ischemic infarct in the RIGHT cerebrum. There is extensive ischemic involvement of the MCA territory. Predominantly cortical-based with additional areas of deeper white matter ischemic event. No hemorrhage. No midline shift. Additional superimposed advanced small vessel ischemic disease and small lacunar infarcts. Moderate atrophy. 3. Hypertension 4. Closed head trauma with subcutaneous hematoma over the left forehead region related to a fall on 02/07/2024 5. Dysphagia patient reported to fail barium swallow study on 02/10/2024 Plan: 1. Recommend obtaining stat CT angiogram of the head and neck to assess for right MCA distribution thrombosis to determine if patient is candidate for transfer for thrombectomy note: This was discussed with the attending physician Marium Chen MD 2. Follow NIH stroke protocol for stroke regarding neurochecks, antiplatelet and lipid-lowering agents as indicated/needed 3. Agree with OT, PT, and speech consults 4. Elevate head of bed to 30 degrees as tolerated 5. No hypotonic fluids 6. Educate patient and family regarding stroke and care of family stroke pamphlet Consult Attestations Medical Necessity Statement: The patient was evaluated by neurology for stroke reported to occur on 02/09/2024 [facility] floor room 264 bed 1 Coding Level of Care Code 04868 Diagnoses Acute right MCA stroke I63.511
--- NOTE | 2024-02-10 13:08 | PM.CONSULT ---
Documented by User: King VásquezMORE STDNT 02/10/24 13:55 Providers/Reason For Consult Consulting Physician/Specialty*: Dr. Danielle, Neurology Reason for Consult*: Stroke Requesting Physician: Marium Chen MD Attending Physician: Marium Chen MD Primary Care Provider: Malcolm Paz History of Present Illness History of Present Illness Geri Spencer is a 83 year old female who fell on 02/07/24 hitting her head, she was evaluated in the ER with negative CT, without significant neurologic symtoms, patient returned to ER 02/08/24 for subcutaneous periorbital trauma 2/2 head injury, was admitted, negative CT and neurologic symptoms. PT assessed patient at 5:30pm 02/09/24 and patient had developed complete paralysis of L arm and L leg, with L facial droop and L hemineglect. It is unclear when exactly these symptoms developed before PT's visit at 5:30pm 02/09/24. However, because of time of findings patient is within 48hr window for thrombectomy and stroke work up is nessecary. MRI 02/10/24 showed thrombus in R MCA. The patient had barium swallow study performed on 02/10/2024 and patient failed a barium swallow study. Review of Systems General: Reports: 10 or more systems reviewed and unremarkable except in HPI and below Medications/Allergies Home Medications Medication Instructions Recorded Confirmed Last Taken Type lisinopril 20 mg tablet 20 mg PO DAILY #90 tabs 09/02/23 02/09/24 Unknown Rx naproxen 500 mg tablet 500 mg PO BID PRN pain #14 tabs 09/29/23 02/09/24 Unknown Rx hydrocortisone 2.5 % topical cream 1 applic [place] DAILY PRN hemorrhoids 11/18/23 02/09/24 Unknown Rx with perineal applicator #30 grams (Proctosol HC) Allergies Allergy/AdvReac Type Severity Reaction Status Date / Time No Known Allergies Allergy Verified 12/28/23 09:35 Current Medications Generic Name Dose Route Start Last Admin Trade Name Freq PRN Reason Stop Dose Admin Famotidine 20 mg 02/09/24 16:30 02/10/24 04:15 Famotidine 20 Mg/2 Ml Inj IVP 20 mg Q12H GEORGE Administration Hydralazine HCl 10 mg 02/09/24 02:33 02/10/24 05:10 Hydralazine 20 Mg/Ml Inj 1 Ml IVP 10 mg Q4H PRN Administration HYPERTENSION Sodium Chloride 1,000 mls @ 100 mls/hr 02/09/24 00:45 02/10/24 08:22 Sodium Chloride 0.9% IV 100 mls/hr .Q10H GEORGE Administration Ketorolac Tromethamine 30 mg 02/09/24 02:27 02/09/24 03:41 Ketorolac 30 Mg/Ml Inj IVP 02/14/24 02:26 30 mg Q6H PRN Administration MODERATE PAIN Lisinopril 20 mg 02/09/24 09:00 02/10/24 08:56 Lisinopril 20 Mg Tablet PO Not Given BID GEORGE Nystatin 1 applic 02/09/24 09:00 02/10/24 08:56 Nystatin Powder 15 Gm Btl TOPICAL 1 applic BID GEORGE Administration PFSH Acute PFSH: Medical History Fall Hypertension Surgical History Hx of eye surgery Family History Other Cancer Social History Smoking and tobacco/nicotine status: never used tobacco/nicotine Alcohol intake: never Substance/Drug Use: never Caregiver/support person: No Lives independently: No Household members: family Sexually active: Yes Do you think of yourself as: Straight/Heterosexual Current gender identity: Female Vitals/I&O/Wt Last Vital Signs Temp 98.3 F 02/10/24 08:00 Pulse 79 02/10/24 08:00 Resp 18 02/10/24 08:00 BP 163/78 02/10/24 08:00 Pulse Ox 92 02/10/24 08:00 O2 Del Method Room Air 02/10/24 04:00 02/09/24 02/10/24 02/10/24 22:59 06:59 14:59 Intake Total 1000 / 3801.828 1521 / 1000 Output Total 350 / 350 400 / 750 Balance 650 / 1541.667 -400 / 6332.521 1837 / 1000 Weight last 48 hrs Weight 171 lb 4 oz Weight 169 lb 3 oz Weight 164 lb 6 oz Weight 168 lb Physical Exam Narrative: NIH score = 15 consciousness 0 commands0 gaze 1 visual feild Unable to asses L pupil patch Facial droop 2 L Motor arms L 4, R 0 Motor legs L 4, R 0 Coordiation 2 dysrthria 1 neglect 1 Right gaze preference with inability of the patient to look past the midline to the left. Obvious left lower facial weakness, paralysis in the left arm and left leg, clumsiness/coordination issues in the left arm and left leg, dysarthria and left-sided neglect). Speech is dysarthric. Patient answered both questions correctly and was able to follow commands. Patient has obvious left lower facial weakness. Right pupil 4 mm round reactive to light and accommodation. Left pupil patch. Patient had right gaze preference with inability to move the right eye past midline when looking to the left. Motor testing revealed left upper and left lower extremity paralysis. Deep tendon reflexes 1-2+ bilaterally plantar responses flexor bilaterally. There was no clonus. Sensory examination was intact to touch. There was extinction on double sensory stimulation on the left with neglect on the left. Const: COMMON NORMALS: patient oriented x3 GENERAL APPEARANCE: cooperative and frail appearing HENMT: COMMON NORMALS: normocephalic HEAD & SCALP: normocephalic and hematoma (periorbital L) Neck/C-Spine: COMMON NORMALS: no JVD Resp: COMMON NORMALS: normal respiratory effort and clear to auscultation bilaterally AUSCULTATION: clear to auscultation bilaterally Cardio: COMMON NORMALS: no JVD, regular rate, regular rhythm, S1 normal heart sound present and S2 normal heart sound present RATE: regular rate RHYTHM: regular rhythm HEART SOUNDS: S1 normal heart sound present and S2 normal heart sound present Neuro: COMMON NORMALS: patient oriented x3 Urinary Catheter Management: Blanco: Cath Placed During This Visit: yes Reason for Continuing Indwelling Catheter: Other Urinary Catheter Date of Insertion: 02/09/24 Urinary Catheter Time of Insertion: 02:00 Data 02/10/24 05:06 02/10/24 05:06 A&P Assessment and plan (1) Acute right MCA stroke: Plan Diagnosis: 1. stroke secondary to closed head trauma 2 days ago Likely R MCA distribution thrombus due to L face, arm and leg paralysis and L hemineglect and failed swallow study Thrombus in R MCA on MRI Plan: 1. Obtain head CT and CTA to determine need for thrombectomy 2. Refer patient to tertiary care center in [facility] for thrombectomy. (Patient is a candidate for thrombectomy due to being 17hr out from findings of paralysis at 5:30pm yesterday 02/09/24 ) Coding Level of Care Code Acute Code for Chg Fwd Diagnoses Acute right MCA stroke I63.511 Documented by User: Jw Danielle MD 02/10/24 16:20 Medications/Allergies Home Medications Medication Instructions Recorded Confirmed Last Taken Type lisinopril 20 mg tablet 20 mg PO DAILY #90 tabs 09/02/23 02/09/24 Unknown Rx naproxen 500 mg tablet 500 mg PO BID PRN pain #14 tabs 09/29/23 02/09/24 Unknown Rx hydrocortisone 2.5 % topical cream 1 applic ME DAILY PRN hemorrhoids 11/18/23 02/09/24 Unknown Rx with perineal applicator #30 grams (Proctosol HC) Allergies Allergy/AdvReac Type Severity Reaction Status Date / Time No Known Allergies Allergy Verified 12/28/23 09:35 PFSH Acute PFSH: Medical History Fall Hypertension Surgical History Hx of eye surgery Family History Other Cancer Social History Smoking and tobacco/nicotine status: never used tobacco/nicotine Alcohol intake: never Substance/Drug Use: never Caregiver/support person: No Lives independently: No Household members: family Sexually active: Yes Do you think of yourself as: Straight/Heterosexual Current gender identity: Female Physical Exam Urinary Catheter Management: Blanco: Cath Placed During This Visit: yes Data 02/10/24 05:06 02/10/24 05:06 A&P Assessment and plan (1) Acute right MCA stroke: Plan Diagnosis: 1. stroke secondary to closed head trauma 2 days ago Likely R MCA distribution thrombus due to L face, arm and leg paralysis and L hemineglect and failed swallow study Thrombus in R MCA on MRI Plan: 1. Obtain CT angiogram of head and neck to determine need for thrombectomy 2. Refer patient to tertiary care center in [facility] for thrombectomy. (Patient is a candidate for thrombectomy due to being 17hr out from findings of paralysis at 5:30pm yesterday 02/09/24 ) Addendum: Dr. Danielle spoke with Dr. De La Torre, radiologist. Dr. De La Torre informed Dr. Danielle that the CT angiogram of the head and neck did not reveal any proximal thrombosis and there was report of flow in the distal MCA distribution although decreased compared to the left MCA distribution. Therefore, patient not a candidate for thrombectomy and patient will was not transferred. I reviewed the consult performed by King Vásquez, medical student and agree with his assessment and treatment plan. Consult Attestations Medical Necessity Statement: Patient was seen by neurology and myself, King Vásquez, medical student for right MCA distribution stroke Coding Level of Care Code Acute Code for [facility] Diagnoses Acute right MCA stroke I63.511
[2024-02-10 16:00] VITALS: BP 110/55; PULSE 74; RESP 18; TEMP 36.6; O2SAT 96
[2024-02-10 16:38] LABS: Glucose Point of Care 90 mg/dL (70-110)
--- NOTE | 2024-02-10 18:37 | P.PN_ITS ---
Subjective 2 Subjective: No acute overnight events noted. Seen at bedside today, no worsening of left lower extremity weakness. She denies any pain at this time but wants to go home Medications: Reviewed: Yes Vitals/I&O/Wt Last Vital Signs Temp 97.9 F 02/10/24 16:00 Pulse 74 02/10/24 16:00 Resp 18 02/10/24 16:00 BP 110/55 02/10/24 16:00 Pulse Ox 96 02/10/24 16:00 O2 Del Method Nasal Cannula 02/10/24 16:00 02/10/24 02/10/24 02/10/24 06:59 14:59 22:59 Intake Total 1000 / 1000 Output Total 400 / 750 Balance -400 / 6965.488 9451 / 1000 Weight last 48 hrs Weight 77.678 kg Weight 76.742 kg Weight 74.559 kg Weight 76.204 kg Physical Exam 2 Narrative: She is alert awake oriented x 2, not in acute distress Chest clear to auscultation bilaterally Cardiovascular normal heart sounds Abdomen NAD Extremities no edema noted Neurological-she has a left hemineglect, left upper extremities 0/5 power, left lower extremity 2/5, sensory deficits on the left side, right gaze preference with inability of the patient to look past the midline to the left. Urinary Catheter Management: Blanco: Cath Placed During This Visit: no Data 02/10/24 05:06 02/10/24 05:06 A&P Assessment and plan (1) Fall: Qualifiers: Encounter type: initial encounter Qualified Code(s): W19.XXXA - Unspecified fall, initial encounter (2) Acute alteration in mental status: (3) Hematoma of frontal scalp: Qualifiers: Encounter type: initial encounter Qualified Code(s): S00.03XA - Contusion of scalp, initial encounter (4) Laceration: (5) Hypertension: Qualifiers: Hypertension type: primary hypertension Qualified Code(s): I10 - Essential (primary) hypertension (6) Acute right MCA stroke: Plan 83-year-old female with history of hypertension brought in by family s/p fall at home and injury to left forehead with active bleeding . She was recently brought to the ER 2 days ago for similar fall at home and had a left forehead hematoma . On arrival to ER she was found to have a laceration in the same hematoma and there was significant bleeding present .suturing done in ER and and packing done. She was found to have left-sided hemiparesis, right gaze preference and dysarthria Hence MRI done this morning showed acute right MCA stroke. Subsequently she was screened with CTA head and neck and neurology consulted for further intervention. Dr. Danielle spoke with Dr. De La Torre, radiologist. Dr. De La Torre informed Dr. Danielle that the CT angiogram of the head and neck did not reveal any proximal thrombosis and there was report of flow in the distal MCA distribution although decreased compared to the left MCA distribution. Therefore, patient not a candidate for thrombectomy and patient was not transferred. Will start on low-dose aspirin 81 mg rectally Atorvastatin 20 mg daily, once able to tolerate oral intake. She is n.p.o. for now Given her dysarthria, speech and swallow consulted. She failed a barium swallow. Repeat evaluation to be done in a.m. If she continues to fail swallow eval, will discuss with family about PEG tube placement. Continue PT. Maintain blood pressure at 150/90 Hold p.o. medications Continue to monitor for size of frontal hematoma, dressing as per nursing care. DVT prophylaxis SCD GI prophylaxis with IV Pepcid 20 mg twice daily She is full code for now Family seeking half-way placement Will follow up case management to assist once cleared medically. Attestations 2 Medical Necessity Statement*: She needs continued hospitalization for neurological monitoring and possible PEG placement for nutrition. Time Spent in Patient Care: 30 minutes Coding Level of Care Code Acute Code for Chg Fwd Diagnoses Fall W19.XXXA Encounter type: initial encounter Acute alteration in mental status R41.82 Hematoma of frontal scalp S00.03XA Encounter type: initial encounter Laceration Primary hypertension I10 Hypertension type: primary hypertension Acute right MCA stroke I63.511 Time Spent (min) 30
[2024-02-10 20:00] VITALS: BP 189/91; PULSE 86; RESP 18; TEMP 36.4; O2SAT 96
[2024-02-10 21:30] VITALS: BP 147/78
[2024-02-11] VITALS (7 sets, daily range): BP systolic 128–186; BP diastolic 77–98; PULSE 75–91; RESP 16–24; TEMP 36.4–36.7; O2SAT 94–96
[2024-02-11] MEDS: ketorolac 30 mg/mL INJ IVP (01:32)
[2024-02-11] MEDS: famotidine 20 mg/2 mL INJ IVP ×2 (04:00→18:31)
[2024-02-11] MEDS: sodium chloride 0.9% 1,000 ML 100 ML IV ×2 (04:00→14:27)
[2024-02-11] MEDS: hyDRALAzine 20 mg/mL INJ 1 mL 10 MG IVP (04:25)
[2024-02-11 04:46] LABS: Basophils # 0.1 10^3/uL (0.0-0.1); Basophils % 0.7 %; Eosinophils # 0.1 10^3/uL (0.0-0.8); Eosinophils % 1.1 %; Lymphocytes # 1.6 10^3/uL (0.8-4.8); Lymphocytes % 13.8 %; Mean Corpuscular HGB Conc 34.3 g/dL (30-55); Mean Corpuscular Hemoglobin 31.5 pg (27-33); Mean Corpuscular Volume 91.8 fl (85-98); Mean Platelet Volume 9.2 fL (7.4-10.4); Monocytes # 0.9 10^3/uL (0.2-0.9); Monocytes % 7.4 %; Neutrophils # 8.95 10^3/uL (1.8-7.7); Neutrophils % 76.5 %; Nucleated Red Blood Cells % 0 %; Platelet Count 389 10^3/cmm (157-399); Red Blood Count 4.03 10^6/uL (3.85-5.65); Red Cell Distribution Width 13.2 % (12.1-15.1); White Blood Count 11.71 10^3/uL (3.29-11.43)
[2024-02-11 05:06] LABS: Anion Gap 18.6 (5-19); Blood Urea Nitrogen 13 mg/dL (8-23); Calcium 8.5 mg/dL (8.5-10.5); Carbon Dioxide 19 mmol/L (22-29); Chloride 104 mmol/L (98-107); Glucose 96 mg/dL (65-115); Osmolality Calculated 284 mOsm/kg (285-295); Potassium 4.6 mmol/L (3.5-5.1); Sodium 137 mmol/L (136-145)
[2024-02-11] MEDS: aspirin 300 mg Supp PR (09:39)
[2024-02-11] MEDS: nystatin powder 15 gm Btl 1 APPLIC TOPICAL ×2 (09:40→18:10)
--- NOTE | 2024-02-11 10:57 | PC.NUTR ---
Initiate enteral nutrition via PEG following RD recs below once medically able (s/p PEG placement) -Jevity 1.5 starting at 25 ml/hr x8 hours and advance to goal of 40 ml/hr x24 -150 ml FWF q6 See most recent RD note for details
--- NOTE | 2024-02-11 11:43 | PC.SOCIAL ---
IMM Update pg 2 of IMM updated and reviewed w/ patients son. Copy left @ bedside and copy dated, initialed and placed in chart.
--- NOTE | 2024-02-11 12:59 | P.CONIM_ITS ---
Providers/Reason For Consult 2 Consulting Physician/Specialty*: Medicine Reason for Consult*: PEG placement Requesting Physician: Marium Chen MD Attending Physician: Marium Chen MD Primary Care Provider: Malcolm Paz History of Present Illness History of Present Illness Geri Spencer is a 83 year old female brought to hospital by family for multiple falls, found to have R MCA stroke resulting in dysphagia precluding safe PO intake. Review of Systems 2 General: Reports: 10 or more systems reviewed and unremarkable except in HPI and below Const: Denies: fever(s) or chills Resp: Denies: dyspnea GI: Denies: abdominal pain, nausea or vomiting Neuro: Reports: frequent falls and confusion Akshat/Lymph: Denies: easy bruising or easy bleeding Medications/Allergies Home Medications Medication Instructions Recorded Confirmed Last Taken Type lisinopril 20 mg tablet 20 mg PO DAILY #90 tabs 09/02/23 02/09/24 Unknown Rx naproxen 500 mg tablet 500 mg PO BID PRN pain #14 tabs 09/29/23 02/09/24 Unknown Rx hydrocortisone 2.5 % topical cream 1 applic [place] DAILY PRN hemorrhoids 11/18/23 02/09/24 Unknown Rx with perineal applicator #30 grams (Proctosol HC) Allergies Allergy/AdvReac Type Severity Reaction Status Date / Time No Known Allergies Allergy Verified 12/28/23 09:35 Current Medications Generic Name Dose Route Start Last Admin Trade Name Freq PRN Reason Stop Dose Admin Aspirin 300 mg 02/11/24 09:00 02/11/24 09:39 Aspirin 300 Mg Supp NJ 300 mg DAILY GEORGE Administration Atorvastatin Calcium 20 mg 02/10/24 21:00 02/10/24 20:58 Atorvastatin 40 Mg Tablet PO Not Given BEDTIME GEORGE Famotidine 20 mg 02/09/24 16:30 02/11/24 04:00 Famotidine 20 Mg/2 Ml Inj IVP 20 mg Q12H GEORGE Administration Hydralazine HCl 10 mg 02/09/24 02:33 02/11/24 04:25 Hydralazine 20 Mg/Ml Inj 1 Ml IVP 10 mg Q4H PRN Administration HYPERTENSION Sodium Chloride 1,000 mls @ 100 mls/hr 02/09/24 00:45 02/11/24 04:00 Sodium Chloride 0.9% IV 100 mls/hr .Q10H GEORGE Administration Ketorolac Tromethamine 30 mg 02/09/24 02:27 02/11/24 01:32 Ketorolac 30 Mg/Ml Inj IVP 02/14/24 02:26 30 mg Q6H PRN Administration MODERATE PAIN Lisinopril 20 mg 02/09/24 09:00 02/11/24 09:40 Lisinopril 20 Mg Tablet PO Not Given BID GEORGE Nystatin 1 applic 02/09/24 09:00 02/11/24 09:40 Nystatin Powder 15 Gm Btl TOPICAL 1 applic BID GEORGE Administration PFSH Acute 2 PFSH: Medical History Fall Hypertension Surgical History Hx of eye surgery Family History Other Cancer Social History Smoking and tobacco/nicotine status: never used tobacco/nicotine Alcohol intake: never Substance/Drug Use: never Caregiver/support person: No Lives independently: No Household members: family Sexually active: Yes Do you think of yourself as: Straight/Heterosexual Current gender identity: Female Vitals/I&O/Wt Last Vital Signs Temp 98.0 F 02/11/24 12:00 Pulse 80 02/11/24 12:00 Resp 24 H 02/11/24 12:00 BP 128/77 02/11/24 12:00 Pulse Ox 96 02/11/24 12:00 O2 Del Method Room Air 02/11/24 12:00 02/10/24 02/11/24 02/11/24 22:59 06:59 14:59 Intake Total 731.667 / 1731.667 253.333 / 1985.000 120 / 120 Output Total 1000 / 1000 400 / 1400 400 / 400 Balance -268.333 / 731.667 -146.667 / 585.000 -280 / -280 Weight last 48 hrs Weight 167 lb 4 oz Weight 171 lb 4 oz Physical Exam 2 Const: COMMON NORMALS: no acute distress, average body habitus, patient oriented x3 and alert GENERAL APPEARANCE: cooperative, comfortable and well developed HENMT: COMMON NORMALS: normocephalic, external ears normal and Normal external nose present HEAD & SCALP: normocephalic and contusion (periorbital) FACE & SINUS: face symmetric NOSE: Normal external nose present EXTERNAL EAR: Y es external ears normal Neck/C-Spine: GENERAL: Yes normal visual inspection and Yes trachea midline Resp: COMMON NORMALS: normal respiratory effort and No retractions EFFORT & INSPECTION: Yes able to speak in complete sentences and Yes symmetric chest movement Cardio: PERIPHERAL PULSES: radial pulses present GI: COMMON NORMALS: Normal to inspection, nondistended, normoactive bowel sounds present, Soft to palpation and non-tender PALPATION: Yes Soft to palpation RECTAL EXAM: deferred Extremity: COMMON NORMALS: normal to inspection Neuro: COMMON NORMALS: patient oriented x3 SENSORIUM/ORIENTATION: Yes alert Psych: COMMON NORMALS: cooperative, normal affect and speech normal A TTITUDE: Yes calm and Yes engaged ACTIVITY/MOTOR BEHAVIOR: Yes appropriate eye contact SPEECH: Yes normal speech MOOD & AFFECT: Yes euthymic mood THOUGHT PROCESS: Circumstantial thought process present THOUGHT CONTENT: Yes Normal thought content present ATTENTION/CONCENTRATION: Yes attention grossly intact and Yes concentration grossly intact INSIGHT: Limited insight present (Psych) Urinary Catheter Management: Blanco: Cath Placed During This Visit: yes Reason for Continuing Indwelling Catheter: Other Urinary Catheter Date of Insertion: 02/09/24 Urinary Catheter Time of Insertion: 02:00 Data 02/11/24 04:30 02/11/24 04:30 Micro: Microbiology 02/09/24 15:25 Urine Culture - Preliminary Urine,Clean Catch A&P Assessment and plan (1) Acute right MCA stroke: (2) Dysphagia as late effect of stroke: Plan Dysphagia following CVA, patient appropriate for PEG placement. Discussed risks and possible benefits of enteral feeding access including tube malposition or inability to safely place endoscopically with family who expressed good understanding and desired to proceed with PEG placement. Continue NPO, IV fluids Timing of PEG placement pending staff availability, likely tomorrow morning Coding Level of Care Code Acute Code for Chg Fwd Diagnoses Acute right MCA stroke I63.511 Dysphagia as late effect of stroke I69.391
--- NOTE | 2024-02-11 15:22 | P.PN_ITS ---
Subjective 2 Subjective: No acute overnight events noted. She is able to comprehend partially, but answers questions appropriately. Current condition and plan of care being discussed with son Mr. Mio Spencer. Medications: Reviewed: Yes Vitals/I&O/Wt Last Vital Signs Temp 98.0 F 02/11/24 12:00 Pulse 80 02/11/24 12:00 Resp 24 H 02/11/24 12:00 BP 128/77 02/11/24 12:00 Pulse Ox 96 02/11/24 12:00 O2 Del Method Room Air 02/11/24 12:00 02/11/24 02/11/24 02/11/24 06:59 14:59 22:59 Intake Total 253.333 / 5129.145 4739 / 1120 Output Total 400 / 1400 400 / 400 Balance -146.667 / 585.000 720 / 720 Weight last 48 hrs Weight 75.863 kg Weight 77.678 kg Physical Exam 2 Narrative: She is alert awake oriented x 2, not in acute distress Chest clear to auscultation bilaterally Cardiovascular normal heart sounds Abdomen NAD Extremities no edema noted Neurological-she has a left hemineglect, left upper extremities 0/5 power, left lower extremity 2/5, sensory deficits on the left side, right gaze preference with inability of the patient to look past the midline to the left. Urinary Catheter Management: Blanco: Cath Placed During This Visit: yes Reason for Continuing Indwelling Catheter: Other Urinary Catheter Date of Insertion: 02/09/24 Urinary Catheter Time of Insertion: 02:00 Data 02/11/24 04:30 02/11/24 04:30 Micro: Microbiology 02/09/24 15:25 Urine Culture - Preliminary Urine,Clean Catch A&P Assessment and plan (1) Fall: Qualifiers: Encounter type: initial encounter Qualified Code(s): W19.XXXA - Unspecified fall, initial encounter (2) Acute alteration in mental status: (3) Hematoma of frontal scalp: Qualifiers: Encounter type: initial encounter Qualified Code(s): S00.03XA - Contusion of scalp, initial encounter (4) Laceration: (5) Hypertension: Qualifiers: Hypertension type: primary hypertension Qualified Code(s): I10 - Essential (primary) hypertension (6) Acute right MCA stroke: Plan 83-year-old female with history of hypertension brought in by family s/p fall at home and injury to left forehead with active bleeding . She was recently brought to the ER 2 days ago for similar fall at home and had a left forehead hematoma . On arrival to ER she was found to have a laceration in the same hematoma and there was significant bleeding present .suturing done in ER and and packing done. She was found to have left-sided hemiparesis, right gaze preference and dysarthria Hence MRI done this morning showed acute right MCA stroke. Subsequently she was screened with CTA head and neck and neurology consulted for further intervention. Dr. Danielle spoke with Dr. De La Torre, radiologist. Dr. De La Torre informed Dr. Danielle that the CT angiogram of the head and neck did not reveal any proximal thrombosis and there was report of flow in the distal MCA distribution although decreased compared to the left MCA distribution. Therefore, patient not a candidate for thrombectomy and patient was not transferred. Patient failed bedside swallow eval and barium swallow. Needs alternative way of nutrition. Discussed with son Mr. Lieberman about PEG placement this morning and he agreed to move forward with the plan. Surgery consult by Dr Barahona appreciated, plan for PEG in am. Will start on low-dose aspirin 81 mg rectally Resume Atorvastatin 20 mg daily via PEg once in place She is n.p.o. for now Continue PT. Maintain blood pressure at 150/90 Hold p.o. medications Continue to monitor for size of frontal hematoma, dressing as per nursing care. DVT prophylaxis SCD GI prophylaxis with IV Pepcid 20 mg twice daily She is full code for now Family seeking correction placement Will follow up case management to assist once cleared medically. Attestations 2 Medical Necessity Statement*: She is hemodynamically stable, waiting for PEG placement for ultimate route for nutrition. Discharge planning discussed with secondary social studies teacher, patient to be discharged to [facility] Time Spent in Patient Care: 20 minutes Coding Level of Care Code Acute Code for Chg Fwd Diagnoses Fall W19.XXXA Encounter type: initial encounter Acute alteration in mental status R41.82 Hematoma of frontal scalp S00.03XA Encounter type: initial encounter Laceration Primary hypertension I10 Hypertension type: primary hypertension Acute right MCA stroke I63.511 Time Spent (min) 20
[2024-02-11] MEDS: lisinopril 20 mg Tablet PO (18:10)
[2024-02-11] MEDS: atorvastatin 40 mg Tablet 20 MG PO (20:32)
[2024-02-12] VITALS (13 sets, daily range): BP systolic 125–192; BP diastolic 73–99; PULSE 67–98; RESP 15–20; TEMP 36.1–36.8; O2SAT 90–99
[2024-02-12 03:58] LABS: Basophils # 0.1 10^3/uL (0.0-0.1); Basophils % 0.9 %; Eosinophils # 0.3 10^3/uL (0.0-0.8); Eosinophils % 3.6 %; Lymphocytes # 1.1 10^3/uL (0.8-4.8); Lymphocytes % 12.3 %; Mean Corpuscular HGB Conc 32.4 g/dL (30-55); Mean Corpuscular Volume 95.6 fl (85-98); Mean Platelet Volume 9.3 fL (7.4-10.4); Monocytes # 0.7 10^3/uL (0.2-0.9); Monocytes % 7.4 %; Neutrophils # 6.82 10^3/uL (1.8-7.7); Neutrophils % 75.2 %; Nucleated Red Blood Cells % 0 %; Platelet Count 354 10^3/cmm (157-399); Red Blood Count 3.87 10^6/uL (3.85-5.65); Red Cell Distribution Width 13.5 % (12.1-15.1); White Blood Count 9.06 10^3/uL (3.29-11.43)
[2024-02-12] MEDS: famotidine 20 mg/2 mL INJ IVP ×2 (04:03→16:07)
--- NOTE | 2024-02-12 07:36 | P.PN_ITS ---
Subjective 2 Subjective: No acute events overnight. Son has arrived and is agreeable to PEG placement. Vitals/I&O/Wt Last Vital Signs Temp 97.8 F 02/12/24 04:00 Pulse 74 02/12/24 04:00 Resp 18 02/12/24 04:00 BP 152/81 02/12/24 04:00 Pulse Ox 92 02/12/24 04:00 O2 Del Method Room Air 02/12/24 04:00 02/11/24 02/12/24 02/12/24 22:59 06:59 14:59 Intake Total 608.333 / 1728.333 0 / 1728.333 Output Total 300 / 700 200 / 900 Balance 308.333 / 1028.333 -200 / 828.333 Weight last 48 hrs Weight 169 lb Weight 167 lb 4 oz Physical Exam 2 Narrative: She is alert awake oriented x 2, not in acute distress Chest symmetric chest rise without accessory muscle use Cardiovascular radial pulses present Abdomen NAD Extremities no edema noted Neurological-she has a left hemineglect, sensory deficits on the left side, right gaze preference. Urinary Catheter Management: Blanco: Cath Placed During This Visit: yes Reason for Continuing Indwelling Catheter: Other Urinary Catheter Date of Insertion: 02/09/24 Urinary Catheter Time of Insertion: 02:00 Data 02/12/24 03:46 02/11/24 04:30 Micro: Microbiology 02/09/24 15:25 Urine Culture - Preliminary Urine,Clean Catch A&P Assessment and plan (1) Dysphagia as late effect of stroke: Proceed with PEG placement as planned Attestations 2 Medical Necessity Statement*: Awaiting PEG placement for safe nutrition. Discharge planning pending placement to [facility]hab Time Spent in Patient Care: 20 minutes Coding Level of Care Code Acute Code for Chg Fwd Diagnoses Dysphagia as late effect of stroke I69.391
--- NOTE | 2024-02-12 07:46 | P.ANESASSM_ITS ---
Pre-Anesthetic Assessment Height/Weight: Height 1.63 m Weight 76.657 kg Temp Pulse Resp BP Pulse Ox O2 Del Method 97.8 F 74 18 152/81 92 Room Air 02/12/24 04:00 02/12/24 04:00 02/12/24 04:00 02/12/24 04:00 02/12/24 04:00 02/12/24 04:00 Operation Date: 02/12/24 08:10 Proposed Procedures p PEG Tube Insertion(Not Applicable) - Kush Barahona MD Operation Date: 02/12/24 08:10 Proposed Procedures p PEG Tube Insertion(Not Applicable) - Kush Barahona MD Last intake: Intake Last Liquid Date 02/08/24 Last Solid Date 02/08/24 Social No tobacco Exam clear to auscultation bilaterally and regular rate & rhythm patient somewhat dysarthric. Oriented to person and place but slow to respond Airway Submandibular: within normal limits Cervical ROM: within normal limits Mallampati: Class I Dentition: false Pulmonary None reported CV/HEM Peripheral Vascular Disease None reported Hepatic None reported GI dysphagia Metabolic None reported Neuropsych Cerebrovascular Accident and Deficit Anesthetic Plan ASA status: 4 Anesthesia: General Risk of > 500 ml blood loss (7ml/kg in children): No Medications/Allergies Home Medications Medication Instructions Recorded Confirmed Last Taken Type lisinopril 20 mg tablet 20 mg PO DAILY #90 tabs 09/02/23 02/09/24 Unknown Rx naproxen 500 mg tablet 500 mg PO BID PRN pain #14 tabs 09/29/23 02/09/24 Unknown Rx hydrocortisone 2.5 % topical cream 1 applic SD DAILY PRN hemorrhoids 11/18/23 02/09/24 Unknown Rx with perineal applicator #30 grams (Proctosol HC) Allergies Allergy/AdvReac Type Severity Reaction Status Date / Time No Known Allergies Allergy Verified 12/28/23 09:35 Current Medications Generic Name Dose Route Start Last Admin Trade Name Freq PRN Reason Stop Dose Admin Aspirin 300 mg 02/11/24 09:00 02/11/24 09:39 Aspirin 300 Mg Supp SD 300 mg DAILY GEORGE Administration Atorvastatin Calcium 20 mg 02/10/24 21:00 02/11/24 20:32 Atorvastatin 40 Mg Tablet PO 20 mg BEDTIME GEORGE Administration Famotidine 20 mg 02/09/24 16:30 02/12/24 04:03 Famotidine 20 Mg/2 Ml Inj IVP 20 mg Q12H GEORGE Administration Hydralazine HCl 10 mg 02/09/24 02:33 02/11/24 04:25 Hydralazine 20 Mg/Ml Inj 1 Ml IVP 10 mg Q4H PRN Administration HYPERTENSION Sodium Chloride 1,000 mls @ 100 mls/hr 02/09/24 00:45 02/12/24 01:08 Sodium Chloride 0.9% IV 100 mls/hr .Q10H GEORGE Infusion Ketorolac Tromethamine 30 mg 02/09/24 02:27 02/11/24 01:32 Ketorolac 30 Mg/Ml Inj IVP 02/14/24 02:26 30 mg Q6H PRN Administration MODERATE PAIN Lisinopril 20 mg 02/09/24 09:00 02/11/24 18:10 Lisinopril 20 Mg Tablet PO 20 mg BID GEORGE Administration Nystatin 1 applic 02/09/24 09:00 02/11/24 18:10 Nystatin Powder 15 Gm Btl TOPICAL 1 applic BID GEORGE Administration PFSH Anesthesia Medical History Fall Hypertension Surgical History Hx of eye surgery Family History Other Cancer Social History Smoking and tobacco/nicotine status: never used tobacco/nicotine Alcohol intake: never Substance/Drug Use: never Caregiver/support person: No Lives independently: No Household members: family Sexually active: Yes Do you think of yourself as: Straight/Heterosexual Current gender identity: Female Data Anesthesia 02/12/24 03:46 02/11/24 04:30 Short CBC 02/11/24 02/12/24 Range/Units 04:30 03:46 WBC 11.71 H 9.06 (3.29-11.43) 10^3/uL Hgb 12.70 12.00 (11.27-16.99) g/dL Hct 37.0 37.0 (36-47) % MCV 91.8 95.6 (85-98) fl Plt Count 389 354 (157-399) 10^3/cmm Neut % (Auto) 76.5 75.2 % Neut # (Auto) 8.95 H 6.82 (1.8-7.7) 10^3/uL BMP 02/11/24 04:30 Sodium 137 Potassium 4.6 Chloride 104 Carbon Dioxide 19 L BUN 13 Creatinine 0.7 Glucose 96 Calcium 8.5 Microbiology 02/09/24 15:25 Urine Culture - Preliminary Urine,Clean Catch Cardiac Studies: 2 No Data to Display
--- NOTE | 2024-02-12 08:34 | ANE.PACU2 ---
Inpatient post-anesthesia follow up: Vital signs: Temperature 97.4 F Pulse Rate 67 Respiratory Rate 18 Blood Pressure 190/99 Pulse Oximetry 93 Oxygen Delivery Me thod Room Air Oxygen Flow Rate Fraction of Inspir ed Oxygen Hydration adequate: Yes Nausea and vomiting: No Mental status: Baseline Additional Comments: no apparent anesthetic complications from MAC anesthesia noted.
--- NOTE | 2024-02-12 09:22 | P.PN_ITS ---
Subjective 2 Subjective: No acute overnight events noted Medications: Reviewed: Yes Vitals/I&O/Wt Last Vital Signs Temp 97.0 F L 02/12/24 08:19 Pulse 73 02/12/24 08:34 Resp 18 02/12/24 08:34 BP 153/74 02/12/24 08:34 Pulse Ox 99 02/12/24 08:34 O2 Del Method Room Air 02/12/24 08:34 O2 Flow Rate 4 02/12/24 08:19 02/11/24 02/12/24 02/12/24 22:59 06:59 14:59 Intake Total 608.333 / 1728.333 0 / 1728.333 Output Total 300 / 700 200 / 900 Balance 308.333 / 1028.333 -200 / 828.333 Weight last 48 hrs Weight 76.657 kg Weight 75.863 kg Physical Exam 2 Narrative: She is alert awake oriented x 2, not in acute distress Chest symmetric chest rise without accessory muscle use Cardiovascular radial pulses present Abdomen NAD Extremities no edema noted Neurological-she has a left hemineglect, sensory deficits on the left side, right gaze preference. Urinary Catheter Management: Blanco: Cath Placed During This Visit: yes Reason for Continuing Indwelling Catheter: Other Urinary Catheter Date of Insertion: 02/09/24 Urinary Catheter Time of Insertion: 02:00 Data 02/12/24 03:46 02/11/24 04:30 Micro: Microbiology 02/09/24 15:25 Urine Culture - Final Urine,Clean Catch A&P Assessment and plan (1) Fall: Qualifiers: Encounter type: initial encounter Qualified Code(s): W19.XXXA - Unspecified fall, initial encounter (2) Acute alteration in mental status: (3) Hematoma of frontal scalp: Qualifiers: Encounter type: initial encounter Qualified Code(s): S00.03XA - Contusion of scalp, initial encounter (4) Laceration: (5) Hypertension: Qualifiers: Hypertension type: primary hypertension Qualified Code(s): I10 - Essential (primary) hypertension (6) Acute right MCA stroke: Plan 83-year-old female with history of hypertension brought in by family s/p fall at home and injury to left forehead with active bleeding . She was recently brought to the ER 2 days ago for similar fall at home and had a left forehead hematoma . On arrival to ER she was found to have a laceration in the same hematoma and there was significant bleeding present .suturing done in ER and and packing done. She was found to have left-sided hemiparesis, right gaze preference and dysarthria Hence MRI done this morning showed acute right MCA stroke. Subsequently she was screened with CTA head and neck and neurology consulted for further intervention. Dr. Danielle spoke with Dr. De La Torre, radiologist. Dr. De La Torre informed Dr. Danielle that the CT angiogram of the head and neck did not reveal any proximal thrombosis and there was report of flow in the distal MCA distribution although decreased compared to the left MCA distribution. Therefore, patient not a candidate for thrombectomy and patient was not transferred. Patient failed bedside swallow eval and barium swallow. Needs alternative way of nutrition. She is s/p PEG placement. Will start with tube feeds after 24 hours. Will start on low-dose aspirin 81 mg rectally Resume Atorvastatin 20 mg daily via PEG once in place She is n.p.o. for now Continue PT. Maintain blood pressure at 150/90 Hold p.o. medications Frontal hematoma, dressing as per nursing care. DVT prophylaxis SCD GI prophylaxis with IV Pepcid 20 mg twice daily She is full code for now Family seeking retirement placement Will follow up case management to assist once cleared medically. Attestations 2 Medical Necessity Statement*: She needs continued hospitalization s/p PEG placement for initiation of tube feeds case management for retirement placement Time Spent in Patient Care: 10 minutes Coding Level of Care Code Acute Code for Chg Fwd Diagnoses Fall W19.XXXA Encounter type: initial encounter Acute alteration in mental status R41.82 Hematoma of frontal scalp S00.03XA Encounter type: initial encounter Laceration Primary hypertension I10 Hypertension type: primary hypertension Acute right MCA stroke I63.511 Time Spent (min) 10
[2024-02-12] MEDS: sodium chloride 0.9% 1,000 ML 100 ML IV ×2 (09:58→19:06)
[2024-02-12] MEDS: aspirin 300 mg Supp PR (09:58)
[2024-02-12] MEDS: hyDRALAzine 20 mg/mL INJ 1 mL 10 MG IVP (11:05)
[2024-02-12] MEDS: ketorolac 30 mg/mL INJ IVP (19:03)
[2024-02-13] VITALS (9 sets, daily range): BP systolic 93–185; BP diastolic 59–99; PULSE 72–94; RESP 18–22; TEMP 36.6–37.6; O2SAT 91–98
[2024-02-13] MEDS: famotidine 20 mg/2 mL INJ IVP ×2 (05:09→17:22)
[2024-02-13] MEDS: sodium chloride 0.9% 1,000 ML 100 ML IV (05:09)
--- NOTE | 2024-02-13 07:53 | P.PN_ITS ---
Subjective 2 Subjective: No acute events overnight. No complications of PEG placement noted. Vitals/I&O/Wt Last Vital Signs Temp 99.0 F 02/13/24 04:52 Pulse 92 02/13/24 04:52 Resp 22 H 02/13/24 04:52 BP 171/88 02/13/24 04:52 Pulse Ox 95 02/13/24 04:52 O2 Del Method Simple Mask 02/12/24 16:00 O2 Flow Rate 3 02/12/24 20:27 02/12/24 02/13/24 02/13/24 22:59 06:59 14:59 Intake Total 913.333 / 224.399 1939 / 1913.333 Output Total 950 / 950 150 / 1100 Balance -36.667 / -36.667 850 / 813.333 Weight last 48 hrs Weight 169 lb 2 oz Weight 169 lb Physical Exam 2 Narrative: She is alert awake oriented x 2, not in acute distress Chest symmetric chest rise without accessory muscle use Cardiovascular radial pulses present Abdomen NAD, PEG present Extremities no edema noted Neurological-she has a left hemineglect, sensory deficits on the left side, right gaze preference. Urinary Catheter Management: Blanco: Cath Placed During This Visit: yes Reason for Continuing Indwelling Catheter: Other Urinary Catheter Date of Insertion: 02/09/24 Urinary Catheter Time of Insertion: 02:00 Data 02/12/24 03:46 02/11/24 04:30 Micro: Microbiology 02/09/24 15:25 Urine Culture - Final Urine,Clean Catch A&P Assessment and plan (1) Dysphagia as late effect of stroke: S/P PEG placement yesterday. No complications noted. May use PEG for medication and feeding today. Remainder of care per primary service. Attestations 2 Medical Necessity Statement*: She needs continued hospitalization s/p PEG placement for initiation of tube feeds case management for correction placement Time Spent in Patient Care: 10 minutes Coding Level of Care Code Acute Code for Chg Fwd Diagnoses Dysphagia as late effect of stroke I69.391
[2024-02-13] MEDS: aspirin 300 mg Supp PR (09:09)
--- NOTE | 2024-02-13 13:10 | PM.PN ---
Subjective Subjective: No acute overnight events noted. Seen at bedside, she is doing well no new complaints noted. Medications: Reviewed: Yes Vitals/I&O/Wt Last Vital Signs Temp 98.4 F 02/13/24 12:54 Pulse 81 02/13/24 12:54 Resp 18 02/13/24 12:54 BP 172/89 02/13/24 12:54 Pulse Ox 98 02/13/24 12:54 O2 Del Method Oxymask 02/13/24 12:54 O2 Flow Rate 3 02/12/24 20:27 02/12/24 02/13/24 02/13/24 22:59 06:59 14:59 Intake Total 913.333 / 713.041 6115 / 1913.333 0 / 0 Output Total 950 / 950 150 / 1100 Balance -36.667 / -36.667 850 / 813.333 0 / 0 Weight last 48 hrs Weight 76.714 kg Weight 76.657 kg Physical Exam Narrative: She is alert awake oriented x 2, not in acute distress Chest symmetric chest rise without accessory muscle use Cardiovascular radial pulses present Abdomen NAD, PEG present Extremities no edema noted Neurological-she has a left hemineglect, sensory deficits on the left side, right gaze preference. Urinary Catheter Management: Blanco: Cath Placed During This Visit: yes Reason for Continuing Indwelling Catheter: Other Urinary Catheter Date of Insertion: 02/09/24 Urinary Catheter Time of Insertion: 02:00 Data 02/12/24 03:46 02/11/24 04:30 Micro: Microbiology 02/09/24 15:25 Urine Culture - Final Urine,Clean Catch A&P Assessment and plan (1) Fall: Qualifiers: Encounter type: initial encounter Qualified Code(s): W19.XXXA - Unspecified fall, initial encounter (2) Acute alteration in mental status: (3) Hematoma of frontal scalp: Qualifiers: Encounter type: initial encounter Qualified Code(s): S00.03XA - Contusion of scalp, initial encounter (4) Laceration: (5) Hypertension: Qualifiers: Hypertension type: primary hypertension Qualified Code(s): I10 - Essential (primary) hypertension (6) Acute right MCA stroke: Plan 83-year-old female with history of hypertension brought in by family s/p fall at home and injury to left forehead with active bleeding . She was recently brought to the ER 2 days ago for similar fall at home and had a left forehead hematoma . On arrival to ER she was found to have a laceration in the same hematoma and there was significant bleeding present .suturing done in ER and and packing done. She was found to have left-sided hemiparesis, right gaze preference and dysarthria Hence MRI done this morning showed acute right MCA stroke. Subsequently she was screened with CTA head and neck and neurology consulted for further intervention. Dr. Danielle spoke with Dr. De La Torre, radiologist. Dr. De La Torre informed Dr. Danielle that the CT angiogram of the head and neck did not reveal any proximal thrombosis and there was report of flow in the distal MCA distribution although decreased compared to the left MCA distribution. Therefore, patient not a candidate for thrombectomy and patient was not transferred. Patient failed bedside swallow eval and barium swallow. Needs alternative way of nutrition. She is s/p PEG placement. start tube feeds today and monitor for tolerance Will start on low-dose aspirin 81 mg via PEG Resume Atorvastatin 20 mg daily via PEG She is n.p.o. for now Continue PT. Maintain blood pressure at 150/90 Resume home medications Frontal hematoma, dressing as per nursing care. DVT prophylaxis with SQ lovenox 40mg daily GI prophylaxis with IV Pepcid 20 mg twice daily She is full code for now Family seeking senior living placement Will follow up case management in am. Attestations Medical Necessity Statement*: She needs case management for senior living placement Time Spent in Patient Care: 10 minutes Coding Level of Care Code Acute Code for Chg Fwd Diagnoses Fall W19.XXXA Encounter type: initial encounter Acute alteration in mental status R41.82 Hematoma of frontal scalp S00.03XA Encounter type: initial encounter Laceration Primary hypertension I10 Hypertension type: primary hypertension Acute right MCA stroke I63.511 Time Spent (min) 10
[2024-02-13] MEDS: enoxaparin 40 mg/0.4 mL Syringe SUBCUT (14:37)
--- NOTE | 2024-02-13 18:56 | PC.NURSE ---
Jevity 1.5 started at 25 mL/hr and is to be increased to goal of 40 mL/hr at 1930.
[2024-02-14] VITALS: BP 148/84; PULSE 88; RESP 19; TEMP 36.8; O2SAT 96
[2024-02-14 04:00] VITALS: BP 166/89; PULSE 93; RESP 19; TEMP 36.4; O2SAT 93
[2024-02-14] MEDS: famotidine 20 mg/2 mL INJ IVP (05:20)
[2024-02-14] MEDS: ketorolac 30 mg/mL INJ 15 MG IVP (05:22)
[2024-02-14 08:12] VITALS: BP 146/81; PULSE 90; RESP 17; TEMP 36.8; O2SAT 94
[2024-02-14] MEDS: aspirin 81 mg EC Tablet PO (08:55)
[2024-02-14 11:46] LABS: SARS Covid-2 Antigen negative (Negative)
--- NOTE | 2024-02-14 11:46 | PC.NURSE ---
9 stitches remved from left eyebrow per dr. mayer.
[2024-02-14 12:30] VITALS: BP 177/82; PULSE 93; RESP 18; TEMP 36.5; O2SAT 96
--- NOTE | 2024-02-14 14:16 | PC.SOCIAL ---
IMM Update Pg. 2 of IMM updated and reviewed. Copy provided.
--- NOTE | 2024-02-14 15:08 | P.DS_ITS ---
Discharge Providers Date of Admission: 02/09/24 00:56 Date of Discharge: February 14, 2024 Attending Provider at Admission: Raleigh Guerrier DO Attending Provider at Discharge: Killian Dueñas MD Primary Care Provider: Malcolm Paz Diagnoses at Discharge Discharge Diagnosis (1) Fall: Status: Acute Qualifiers: Encounter type: initial encounter Qualified Code(s): W19.XXXA - Unspecified fall, initial encounter (2) Acute alteration in mental status: Status: Acute (3) Hematoma of frontal scalp: Status: Acute Qualifiers: Encounter type: initial encounter Qualified Code(s): S00.03XA - Contusion of scalp, initial encounter (4) Laceration: Status: Acute (5) Hypertension: Status: Acute Qualifiers: Hypertension type: primary hypertension Qualified Code(s): I10 - Essential (primary) hypertension (6) Acute right MCA stroke: Status: Acute Reason for Visit Reason for Visit: head lac, fall Hospital Course Hospital Course Geri is an 83-year-old white female who presented to the emergency department on February 08 with history of multiple falls. At that time she had a fall and had a hematoma on her scalp and a laceration above her eye. While in the hospital it was noted that she had a subacute stroke, present on admission, demonstrated by left-sided hemiparesis. This prompted evaluation with a CTA after MRI confirmed this. MRI demonstrated an acute infarction in the right cerebrum, MCA territory. CTA demonstrated mild segmental narrowing M1 but no flow-limiting stenosis. Patient was not able to swallow effectively so PEG tube was placed February 11. Following this patient had continued supportive care, initiation of tube feedings, and eventually was at goal with Jevity at 40 cc an hour. On February 13 she was excepted in a nursing facility for rehabilitation, and was stable for transfer. Sutures from her left face were removed prior to transfer and Steri-Strips placed. She will follow-up with her primary care provider, as well as neurology. Please see discharge orders. She was discharged on aspirin, and statin. Physical Exam Narrative: General exam no distress Neck supple Cardiovascular regular rate and rhythm Lungs clear Abdomen soft Extremities no sinus clubbing edema Neuro dense left hemiparesis Urinary Catheter Management: Blanco: Cath Placed During This Visit: yes, but has since been removed by the nurse Reason for Continuing Indwelling Catheter: Decision to DC Catheter Urinary Catheter Date of Insertion: 02/09/24 Urinary Catheter Time of Insertion: 02:00 Date Urinary Catheter Removed: 02/14/24 Time Urinary Catheter Discontinued: 11:45 Discharge Data Studies Completed and Pending Completed Studies During Hospitalization Category Date Time Status CT cervical spin wo con* [id number] Stat Cat Scan 02/08/24 23:[address] head wo con* [id number] Stat Cat Scan 02/08/24 23:20 Completed CTA head neck [CT angio headneck* [id number]] Stat Cat Scan 02/10/24 11:49 Completed FL barium swallow modifd [id number] Routine Exams 02/10/24 09:30 Completed MR head wo con* [id number] Stat MRI 02/10/24 09:30 Completed Radiology Impressions Cervical Spine CT 02/08/24 23:20 IMPRESSION: No acute cervical spine fracture or listhesis. Head CT 02/08/24 23:20 IMPRESSION: 1. No acute intracranial abnormality. 2. Soft tissue defect and hematoma along the left frontal skull orbit with no underlying skull fracture. 3. Small-vessel ischemic disease. 4. The left globe appears intact. Laboratory Results WBC 9.06 10^3/uL (3.29-11.43) 02/12/24 03:46 RBC 3.87 10^6/uL (3.85-5.65) 02/12/24 03:46 Hgb 12.00 g/dL (11.27-16.99) 02/12/24 03:46 Hct 37.0 % (36-47) 02/12/24 03:46 MCV 95.6 fl (85-98) 02/12/24 03:46 MCH 31.0 pg (27-33) 02/12/24 03:46 MCHC 32.4 g/dL (30-55) D 02/12/24 03:46 RDW 13.5 % (12.1-15.1) 02/12/24 03:46 Plt Count 354 10^3/cmm (157-399) 02/12/24 03:46 MPV 9.3 fL (7.4-10.4) 02/12/24 03:46 Neut % (Auto) 75.2 % 02/12/24 03:46 Lymph % (Auto) 12.3 % 02/12/24 03:46 [place] % (Auto) 7.4 % 02/12/24 03:46 Eos % (Auto) 3.6 % 02/12/24 03:46 Baso % (Auto) 0.9 % 02/12/24 03:46 Neut # (Auto) 6.82 10^3/uL (1.8-7.7) 02/12/24 03:46 Lymph # (Auto) 1.1 10^3/uL (0.8-4.8) 02/12/24 03:46 [place] # (Auto) 0.7 10^3/uL (0.2-0.9) 02/12/24 03:46 Eos # (Auto) 0.3 10^3/uL (0.0-0.8) 02/12/24 03:46 Baso # (Auto) 0.1 10^3/uL (0.0-0.1) 02/12/24 03:46 Nucleated RBC % (auto) 0 % 02/12/24 03:46 Nucleated RBCs # 0.0 /100WBC 02/12/24 03:46 PT 14.30 SECONDS (12.1-14.9) 02/09/24 00:01 INR 1.07 (0.8-1.2) 02/09/24 00:01 Sodium 137 mmol/L (136-145) 02/11/24 04:30 Potassium 4.6 mmol/L (3.5-5.1) 02/11/24 04:30 Chloride 104 mmol/L (98-107) 02/11/24 04:30 Carbon Dioxide 19 mmol/L (22-29) L 02/11/24 04:30 Anion Gap 18.6 (5-19) 02/11/24 04:30 BUN 13 mg/dL (8-23) 02/11/24 04:30 Creatinine 0.7 mg/dL (0.5-0.9) 02/11/24 04:30 GFR Calculation Not Reportable 02/11/24 04:30 Glucose 96 mg/dL (65-115) 02/11/24 04:30 POC Glucose 90 mg/dL (70-110) 02/10/24 16:34 Calculated Osmolality 284 mOsm/kg (285-295) L 02/11/24 04:30 Calcium 8.5 mg/dL (8.5-10.5) 02/11/24 04:30 Magnesium 1.8 mg/dL (1.7-2.3) 02/09/24 00:01 Total Bilirubin 0.9 mg/dL (0.15-1.2) 02/09/24 00:01 AST 23 U/L (0-32) 02/09/24 00:01 ALT 18 U/L (0-33) 02/09/24 00:01 Alkaline Phosphatase 119 U/L (35-105) H 02/09/24 00:01 Total Protein 6.9 g/dL (6.6-8.7) 02/09/24 00:01 Albumin 3.7 g/dL (3.5-5.2) 02/09/24 00:01 Globulin 3.2 g/dL (1.3-4.6) 02/09/24 00:01 Urine Color Dark yellow (Yellow) 02/09/24 15:25 Urine Appearance Hazy (CLEAR) A 02/09/24 15: Urine pH 7 (5-7) 02/09/24 15:25 Ur Specific [place] 1.015 (1.005-1.030) 02/09/24 15:25 Urine Protein Neg (Negative) 02/09/24 15:25 Urine Glucose (UA) Norm (Normal) 02/09/24 15:25 Urine Ketones 2+ (Negative) H 02/09/24 15: Urine Blood 3+ (Negative) H 02/09/24 15:25 Urine Nitrate Negative (Negative) 02/09/24 15: Urine Bilirubin Neg (Negative) 02/09/24 15: Urine Urobilinogen 4 mg/dL (Negative) H 02/09/24 15:25 Ur Leukocyte Esterase Negative (Negative) 02/09/24 15:25 Urine RBC 25-40 /hpf (0-2) H 02/09/24 15:25 Urine WBC 10-15 /hpf (0-5) H 02/09/24 15:25 Ur Squamous Epith Cells 0-4 /hpf (0-5) H 02/09/24 15:25 Amorphous Sediment Not Reportable 02/09/24 15:25 Urine Bacteria 1+ /hpf (NONE) H 02/09/24 15:25 Urine Mucus 2+ /hpf 02/09/24 15:25 SARS-CoV-2 Ag (Rapid) negative (Negative) 02/14/24 11:20 Vitals Last Vital Signs Temp 97.7 F 02/14/24 12:30 Pulse 93 02/14/24 12:30 Resp 18 02/14/24 12:30 BP 177/82 02/14/24 12:30 Pulse Ox 96 02/14/24 12:30 O2 Del Method Room Air 02/14/24 12:30 O2 Flow Rate 2 02/13/24 20:00 Discharge Plan Discharge Patient Disposition: Xfer SNF Condition: Stable Prescriptions: New aspirin 81 mg Tablet,Delayed Release (Dr/Ec) 81 mg PO DAILY Qty: 30 0RF atorvastatin 40 mg Tablet 20 mg PO BEDTIME Qty: 60 0RF lisinopril 20 mg Tablet 20 mg PO BID Qty: 60 0RF Continued hydrocortisone [Proctosol HC] 2.5 % cream with perineal applicator 1 applic MA DAILY PRN (Reason: hemorrhoids) Qty: 30 1RF Discontinued lisinopril 20 mg tablet 20 mg PO DAILY Qty: 90 1RF naproxen 500 mg tablet 500 mg PO BID PRN (Reason: pain) Qty: 14 0RF Discharge Orders: Discharge Order (Routine); Ordered 02/14/24 Ordered By: Killian Dueñas Referrals: Jw Danielle MD [Physician] - 2 weeks (We have notified your physician's clinic of the need for a follow-up appointment to be scheduled. If you have not heard from them within the next 2 business days, please call them directly. ) Malcolm Paz FNP [Primary Care Provider] - 4-7 days Discharge Activity: Increase activity as tolerated Patient Instructions: Lisinopril (By mouth), Aspirin (By mouth), Atorvastatin (By mouth), GI Discharge Instructions Activity Restrictions/Additional Instructions: N.p.o. including meds. Give meds by PEG tube Tube feeding diet, 40 cc/h of Jevity, free water 150 cc every 6 hours Activity per therapy Follow-up with primary care provider at nursing facility in 3 to 5 days. Follow-up with neurology in 2 weeks. Can consider event monitor at that time and/or echo. Discharge Attestations Time Spent in Discharge Care*: greater than 30 min Quality Metrics Clinical Quality Measures [ Cerebrovascular Accident { Contraindication to Antithrombotic: None; antithrombotic prescribed; Contraindication to Anticoagulation: Other (Not indicated); Contraindication to Statin: None; Statin prescribed;}] Coding Level of Care Code 67973 Total time (in minutes) for Discharge: 45 Diagnoses Fall W19.XXXA Encounter type: initial encounter Acute alteration in mental status R41.82 Hematoma of frontal scalp S00.03XA Encounter type: initial encounter Laceration Primary hypertension I10 Hypertension type: primary hypertension Acute right MCA stroke I63.511
[2024-02-14 16:17] VITALS: BP 177/82; PULSE 93; RESP 18; TEMP 36.5; O2SAT 96
== END 2024-02-14 16:20 | DRG 65 ==
LOC: ER 02-09 00:44 → MEDSURG 02-09 00:57
PROVIDERS: Internal Medicine; Surgery; Admitting Provider Internal Medicine; Emergency Provider Physician Assistant; PCP Nurse Practitioner Family; Visit Provider Internal Medicine
PROC: 0DH63UZ Insertion of Feeding Device into Stomach, Percutaneous Approach (ICD-10-PCS; CPT 43246; principal; 2024-02-12 08:10)
DX: I63.511 Cerebral infarction due to unspecified occlusion or stenosis of right middle cerebral artery (principal); G81.94 Hemiplegia, unspecified affecting left nondominant side; H53.8 Other visual disturbances; R47.1 Dysarthria and anarthria; W19.XXXA Unspecified fall, initial encounter; R29.6 Repeated falls; R41.82 Altered mental status, unspecified; S00.03XA Contusion of scalp, initial encounter; S01.01XA Laceration without foreign body of scalp, initial encounter; I10 Essential (primary) hypertension; I69.391 Dysphagia following cerebral infarction; L98.491 Non-pressure chronic ulcer of skin of other sites limited to breakdown of skin
CPT/HCPCS: 36415; 36416; 51702; 70450; 70496; 70498; 70551; 72125; 74230; 80048; 80053; 81001; 82550; 82962; 83735; 85025; 85610; 85730; 87086; 87426; 92507; 92523; 92526; 92610; 92611; 93005; 96372; 96374; 97110; 97161; 97167; 97530; 97535; 99284; 99285; J0360; J1650; J1885; J2704; J3490; J7030; Q9967

== ENCOUNTER 2024-03-19 11:07 | Inpatient (IN) | payer MEDICARE, SELFPAY ==
[2024-03-19] VITALS (72 sets, daily range): BP systolic 71–182; BP diastolic 42–101; PULSE 74–124; RESP 7–38; TEMP 36.2–37.1; O2SAT 87–100; BMI 27.3
--- NOTE | 2024-03-19 11:09 | CTR_ITS ---
PROCEDURE INFORMATION: Exam: CT Abdomen And Pelvis With Contrast Exam date and time: 03/19/2024 11:39 AM Age: 83 years old Clinical indication: Abdominal pain; Prior surgery; Surgery date: 6+ months; Surgery type: Peg tube; Additional info: Abd pain TECHNIQUE: Imaging protocol: Computed tomography of the abdomen and pelvis with contrast. Radiation optimization: All CT scans at this facility use at least one of these dose optimization techniques: automated exposure control; mA and/or kV adjustment per patient size (includes targeted exams where dose is matched to clinical indication); or iterative reconstruction. Contrast material: OMNI 350; Contrast volume: 100 ml; Contrast route: INTRAVENOUS (IV); COMPARISON: No relevant prior studies available. RADIATION DOSE METRICS: Total DLP (mGy-cm): 807.11 FINDINGS: Tubes, catheters and devices: There is a gastrostomy tube in place. Lungs: There is atelectasis and/or scarring in the lung bases. Diaphragm: There is a small hiatal hernia. Liver: Normal. No mass. Gallbladder and bile ducts: No gallstones are detected. There is no gallbladder wall thickening and there is no biliary ductal dilatation. Pancreas: The pancreas is unremarkable. Spleen: Normal. No splenomegaly. Adrenal glands: The adrenal glands are unremarkable. Kidneys and ureters: There is a cyst emanating from the lower pole of the left kidney. Additional tiny lesions are likely also cysts but too small to accurately characterize. There is no hydronephrosis. No renal or ureteral calculus is detected. There are degenerative changes in the symphysis, hips and spine. There is no Stomach and bowel: The colon and rectum are dilated with a large amount of stool. The cecum measures 10 cm. The rectum measures 9.2 x 8.1 cm. Findings are consistent with constipation and probable fecal impaction. There is mild perirectal fat stranding. There is relative narrowing in a portion of the ascending colon likely representing peristaltic wave. The possibility of a mass or stricture here cannot completely be excluded. The colon is dilated both proximal and distal to this area of narrowing. Appendix: The appendix is not definitively identified. Intraperitoneal space: Unremarkable. No free air. No significant fluid collection. Vasculature: There are atherosclerotic changes involving the aorta and branch vessels. 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 Proximal lobe measures 2.5 x 2.4 cm. Inferior lobe measures 2.6 x 2.7 cm. There is plaque at the origin of the celiac axis likely resulting in a proximally 70-80% stenosis here. There is no significant stenosis involving the superior mesenteric artery. Lymph nodes: Unremarkable. No enlarged lymph nodes. Urinary bladder: The bladder is decompressed. Reproductive: No uterine mass is detected. There is a small low-density lesion on the right ovary which has very low CT density numbers consistent with a probable small cyst measuring 1.2 x 1.4 x 1.3 cm. Bones/joints: See Kidneys and ureters finding. Soft tissues: There is a small umbilical hernia containing only fat. CT/CT abdomen pelvis w con* [id number] IMPRESSION: 1. Distended colon and rectum with a large amount of stool consistent with constipation and probable fecal impaction areas of narrowing ascending colon favored to be areas of peristalsis, see above 2. Gastrostomy tube 3. Definite left renal cyst and probable small cysts both kidneys but too small to accurately characterize 4. Small cystic lesion right ovary which can be followed up with ultrasound next lines 5. 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 Next lines 5. Hiatal hernia COMMENTS: Consistent with the [employer]'s Incidental Findings Committee white paper (J Am Vladimir Radiol 2018): Any incidental renal lesion less than 1 cm or classified as too small to characterize, or any incidental cystic renal lesion characterized as simple-appearing, is likely benign. No follow-up imaging is recommended for these lesions per consensus recommendations based on imaging criteria.
--- NOTE | 2024-03-19 11:16 | W.ED.ABDPA2 ---
HPI - Abdominal Pain General: Chief Complaint: Abdominal Pain Stated Complaint: ABD PAIN Time Seen by Provider: 03/19/24 11:08 Source: patient and EMS Mode of arrival: EMS Limitations: no limitations History of Present Illness: 83-year-old female is here from detention she been having nausea vomiting along with abdominal pain since this morning. She complains of severe abdominal pain on the right side rates her pain an 8 out of 10. Denies any fevers denies any diarrhea she has had a history of a stroke in the past has a PEG tube as well. Associated Symptoms: Reports nausea and vomiting; Denies chills, diarrhea, dysuria and fever(s) Review of Systems Const: Denies: fever(s), chills, body aches or change in appetite ENMT: Denies: throat pain or dental pain Card: Denies: chest pain Resp: Denies: dyspnea GI: Reports: abdominal pain, nausea and vomiting; Denies: diarrhea : Denies: dysuria Musc: Denies: neck pain or back pain Skin/Breast: Denies: rash Neuro: Denies: headache(s) PFSH ED PFSH: Medical History Fall Hypertension Surgical History Hx of eye surgery Family History Other Cancer Social History Smoking and tobacco/nicotine status: never used tobacco/nicotine Alcohol intake: never Substance/Drug Use: never Caregiver/support person: No Lives independently: No Household members: family Sexually active: Yes Do you think of yourself as: Straight/Heterosexual Current gender identity: Female Physical Exam Const: COMMON NORMALS: no acute distress, patient oriented x3 and healthy appearing HENMT: COMMON NORMALS: normocephalic and atraumatic HEAD & SCALP: normocephalic and atraumatic Neck/C-Spine: COMMON NORMALS: full ROM and supple Chest: COMMONS NORMALS: normal inspection of the chest Resp: COMMON NORMALS: normal respiratory effort, No retractions, No use of accessory muscles and clear to auscultation bilaterally AUSCULTATION: clear to auscultation bilaterally Cardio: COMMON NORMALS: regular rate, regular rhythm and No murmurs present (Cardio) RATE: regular rate RHYTHM: regular rhythm GI: COMMON NORMALS: no masses OTHER: Diffuse abdominal tenderness Extremity: COMMON NORMALS: normal to inspection and full ROM Neuro: COMMON NORMALS: patient oriented x3, moves all extremities and no focal motor deficits Psych: COMMON NORMALS: mental status grossly normal, Normal thought process present and cooperative THOUGHT PROCESS: Normal thought process present Skin: COMMON NORMALS: no rashes or lesions noted and no wounds GENERAL SKIN EXAM: no rashes or lesions noted Course Vital Signs: Vital signs: Vital Signs Pulse Rate 117 H 03/19/24 12:01 Respiratory Rate 20 H 03/19/24 13:16 Blood Pressure 79/67 03/19/24 12:01 Pulse Oximetry 92 03/19/24 13:16 Oxygen Delivery Me thod Room Air 03/19/24 11:56 MDM - Abdominal Pain Medical Decision Making Patient presents with abdominal pain along with septic shock I have given her sepsis fluid bolus in the ER but she started on antibiotics I did place a central line and started her on Levophed her blood pressure is improved here. Patient's been seen in the ER by surgeon who is going to follow the case I spoke to hospitalist and will admit as well Medical Records I reviewed the patient's medical records. Lab Data I reviewed the patient's lab results. 03/19/24 11:32 03/19/24 11:32 Labs/Radiology: Radiology Impressions Abdomen/Pelvis CT 03/19/24 11:09 IMPRESSION: 1. Distended colon and rectum with a large amount of stool consistent with constipation and probable fecal impaction areas of narrowing ascending colon favored to be areas of peristalsis, see above 2. Gastrostomy tube 3. Definite left renal cyst and probable small cysts both kidneys but too small to accurately characterize 4. Small cystic lesion right ovary which can be followed up with ultrasound next lines 5. 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 Next lines 5. Hiatal hernia COMMENTS: Consistent with the [employer]'s Incidental Findings Committee white paper (J Am Vladimir Radiol 2018): Any incidental renal lesion less than 1 cm or classified as too small to characterize, or any incidental cystic renal lesion characterized as simple-appearing, is likely benign. No follow-up imaging is recommended for these lesions per consensus recommendations based on imaging criteria. Laboratory Results WBC 24.08 10^3/uL (3.29-11.43) H 03/19/24 11:32 RBC 5.13 10^6/uL (3.85-5.65) 03/19/24 11:32 Hgb 15.90 g/dL (11.27-16.99) 03/19/24 11:32 Hct 50.6 % (36-47) H 03/19/24 11:32 MCV 98.6 fl (85-98) H 03/19/24 11:32 MCH 31.0 pg (27-33) 03/19/24 11:32 MCHC 31.4 g/dL (30-55) 03/19/24 11:32 RDW 13.4 % (12.1-15.1) 03/19/24 11:32 Plt Count 383 10^3/cmm (157-399) 03/19/24 11:32 MPV 10.5 fL (7.4-10.4) H 03/19/24 11:32 Neut % (Auto) 88.8 % 03/19/24 11:32 Lymph % (Auto) 7.4 % 03/19/24 11:32 [place] % (Auto) 2.3 % 03/19/24 11:32 Eos % (Auto) 0.3 % 03/19/24 11:32 Baso % (Auto) 0.3 % 03/19/24 11:32 Neut # (Auto) 21.38 10^3/uL (1.8-7.7) H 03/19/24 11:32 Lymph # (Auto) 1.8 10^3/uL (0.8-4.8) 03/19/24 11:32 [place] # (Auto) 0.6 10^3/uL (0.2-0.9) 03/19/24 11:32 Eos # (Auto) 0.1 10^3/uL (0.0-0.8) 03/19/24 11:32 Baso # (Auto) 0.1 10^3/uL (0.0-0.1) 03/19/24 11:32 Nucleated RBC % (auto) 0 % 03/19/24 11:32 Nucleated RBCs # 0.0 /100WBC 03/19/24 11:32 Sodium 142 mmol/L (136-145) 03/19/24 11:32 Potassium 4.1 mmol/L (3.5-5.1) 03/19/24 11:32 Chloride 102 mmol/L (98-107) 03/19/24 11:32 Carbon Dioxide 18 mmol/L (22-29) L 03/19/24 11:32 Anion Gap 26.1 (5-19) H 03/19/24 11:32 BUN 28 mg/dL (8-23) H 03/19/24 11:32 Creatinine 1.2 mg/dL (0.5-0.9) H 03/19/24 11:32 GFR Calculation Not Reportable 03/19/24 11:32 Glucose 308 mg/dL (65-115) H 03/19/24 11:32 Calculated Osmolality 311 mOsm/kg (285-295) H 03/19/24 11:32 Lactic Acid 7.5 mmol/L (0.5-2.2) H* 03/19/24 11:32 Calcium 9.8 mg/dL (8.5-10.5) 03/19/24 11:32 Total Bilirubin 0.7 mg/dL (0.15-1.2) 03/19/24 11:32 AST 31 U/L (0-32) 03/19/24 11:32 ALT 28 U/L (0-33) 03/19/24 11:32 Alkaline Phosphatase 132 U/L (35-105) H 03/19/24 11:32 Total Protein 8.0 g/dL (6.6-8.7) 03/19/24 11:32 Albumin 4.1 g/dL (3.5-5.2) 03/19/24 11:32 Globulin 3.9 g/dL (1.3-4.6) 03/19/24 11:32 Lipase 106 U/L (13-60) H 03/19/24 11:32 All radiology interpretation(s) finalized by discharge EKG Data EKG 1: I personally reviewed and interpreted this EKG as follows: EKG interpretation date: 03/19/24 EKG interpretation time: 11:30 Interpretation: sinus tach hr [address] or t wave abnormalities qrs 79 qc 346 Critical Care Time Critical Care Time: Critical Care Time: Yes Total Critical Care Time: 40 Attestation: The high probability of a clinically significant, sudden or life threatening deterioration of the patient's gi system(s) required my full and direct attention, intervention and personal management. The critical care time is as shown. This time is in addition to time spent performing any reported procedures but includes the following: [x] Data and vital sign review and interpretation [x] Patient assessment, examination and intervention [x] Documentation [x] Medication orders and management Discharge Plan Discharge Patient Disposition: Admitted As Inpatient Admit Provider: Xavier Gonzales Clinical Impression: Septic shock, Abdominal pain Condition: Stable Coding Level of Care Code ED Electrical Checkout Mechanic for Tahir Khalil
--- NOTE | 2024-03-19 11:30 | ECG_ITS ---
[facility] Test Date: 2024-03-19 Pat Name: Geri Spencer Department: Room: Gender: Female Clerical Order Filler: : 1940 Requested By: Althea Mays Order Number: [id number] Dasha MD: Shiela Santana M.D. Measurements Intervals [place] Rate: 118 P: 49 OK: 129 QRS: -41 QRSD: 79 T: 57 QT: 276 QTc: 387 Interpretive Statements SINUS TACHYCARDIA POSSIBLE RIGHT ATRIAL ENLARGEMENT [0.25mV P-WAVE] LEFT AXIS DEVIATION [QRS AXIS < -30] PATTERN CONSISTENT WITH PULMONARY DISEASE MODERATE VOLTAGE CRITERIA FOR LVH, CONSIDER NORMAL VARIANT [MEETS CRITERIA IN ONE OF: R(aVL), S(V1), R(V5), R(V5/V6)+S(V1)] Compared to ECG 02/07/2024 18:52:36 Sinus rhythm no longer present T-wave abnormality no longer present Electronically Signed On 03-20-2024 8:33:26 CDT by Shiela Santana M.D. [email or web address]
[2024-03-19 11:39] LABS: Basophils # 0.1 10^3/uL (0.0-0.1); Basophils % 0.3 %; Eosinophils # 0.1 10^3/uL (0.0-0.8); Eosinophils % 0.3 %; Hematocrit 50.6 % (36-47); Lymphocytes # 1.8 10^3/uL (0.8-4.8); Lymphocytes % 7.4 %; Mean Corpuscular HGB Conc 31.4 g/dL (30-55); Mean Corpuscular Volume 98.6 fl (85-98); Mean Platelet Volume 10.5 fL (7.4-10.4); Monocytes # 0.6 10^3/uL (0.2-0.9); Monocytes % 2.3 %; Neutrophils # 21.38 10^3/uL (1.8-7.7); Neutrophils % 88.8 %; Nucleated Red Blood Cells % 0 %; Platelet Count 383 10^3/cmm (157-399); Red Blood Count 5.13 10^6/uL (3.85-5.65); Red Cell Distribution Width 13.4 % (12.1-15.1); White Blood Count 24.08 10^3/uL (3.29-11.43)
[2024-03-19] MEDS: iohexol 350 mg/mL 500 mL Btl (per mL) IV (11:46)
--- NOTE | 2024-03-19 11:56 | XRR_ITS ---
PROCEDURE INFORMATION: Exam: XR Chest Exam date and time: 03/19/2024 12:07 PM Age: 83 years old Clinical indication: Pain; Chest pressure; Additional info: Abd pain, gastric tube TECHNIQUE: Imaging protocol: Radiologic exam of the chest. Views: 1 view. COMPARISON: CT abdomen pelvis w con* [id number] 03/19/2024 11:39 AM FINDINGS: Lungs: There is density in the lingula question atelectasis or infiltrate or both. This appears to be superimposed on interstitial lung disease Pleural spaces: Unremarkable. No pleural effusion. No pneumothorax. Heart/Mediastinum: The heart size is within normal limits. Vasculature: There are atherosclerotic changes in the aorta. Bones/joints: There are degenerative changes in the spine. Distended loops of bowel are observed in the upper abdomen XR/XR chest 1V portable [id number] IMPRESSION: Lingular atelectasis/infiltrate. Patient appears to have interstitial lung disease
[2024-03-19 12:00] LABS: Alanine Aminotransferase 28 U/L (0-33); Albumin Level 4.1 g/dL (3.5-5.2); Alkaline Phosphatase 132 U/L (35-105); Anion Gap 26.1 (5-19); Aspartate Amino Transferase 31 U/L (0-32); Blood Urea Nitrogen 28 mg/dL (8-23); Calcium 9.8 mg/dL (8.5-10.5); Carbon Dioxide 18 mmol/L (22-29); Chloride 102 mmol/L (98-107); Globulin 3.9 g/dL (1.3-4.6); Glucose 308 mg/dL (65-115); Lipase 106 U/L (13-60); Osmolality Calculated 311 mOsm/kg (285-295); Potassium 4.1 mmol/L (3.5-5.1); Sodium 142 mmol/L (136-145); Total Bilirubin 0.7 mg/dL (0.15-1.2)
[2024-03-19] MEDS: sodium chloride 0.9% 1,000 ML 999 ML IV ×2 (12:15→13:20)
[2024-03-19] MEDS: ondansetron 2 mg/ML SDV 2 mL 4 MG IVP (12:15)
[2024-03-19] MEDS: morphine 4 mg/mL SDV 1 mL IVP ×2 (12:15→13:16)
[2024-03-19] MEDS: piperacillin-tazobactam 3.375 GM in sodium chloride 0.9% (plus) 50 ML IV ×2 (12:16→17:48)
[2024-03-19 12:18] LABS: Lactic Sepsis W/Reflex 7.5 mmol/L (0.5-2.2)
[2024-03-19] MEDS: norepinephrine 4 MG/250 ML BAG 30 MG IV (12:39)
[2024-03-19] MEDS: vancomycin 1,000 MG in sodium chloride 0.9% 250 ML 250 MG IV (13:20)
[2024-03-19 13:24] LABS: Reflex Lactate Order REFLEX LACTIC ORDERD
--- NOTE | 2024-03-19 13:43 | P.CONIM_ITS ---
Providers/Reason For Consult 2 Consulting Physician/Specialty*: General surgery Reason for Consult*: Abdominal pain Primary Care Provider: Malcolm Paz History of Present Illness History of Present Illness Geri Spencer is a 83 year old female assisted resident with history of stroke, who has very poor motility and has history of PEG tube placement last month. She was sent to the emergency department complaining of abdominal pain nausea and vomit. In the emergency department she appeared to be in septic shock with a white count of 24 heart rate of 117 and a BP of 80/60. She was initiated on Levophed, a CT scan of the abdomen pelvis with contrast was obtained for evaluation of possible mesenteric ischemia versus other intra- abdominal pathology and only show evidence of a very large fecal impaction with proximal dilation of the large bowel consistent with this fecal impaction. I was consulted to evaluate the patient to rule out other causes of intra- abdominal pathology that may require surgical intervention. Review of Systems 2 General: Reports: ROS unobtainable due to mental status Medications/Allergies Home Medications Medication Instructions Recorded Confirmed Last Taken Type hydrocortisone 2.5 % topical cream 1 applic SC DAILY PRN hemorrhoids 11/18/23 02/09/24 Unknown Rx with perineal applicator #30 grams (Proctosol HC) aspirin 81 mg tablet,delayed 81 mg PO DAILY #30 tabs 02/14/24 Unknown Rx release atorvastatin 40 mg tablet 20 mg (1/2 x 40 mg) PO BEDTIME #60 02/14/24 Unknown Rx tabs lisinopril 20 mg tablet 20 mg PO BID #60 tabs 02/14/24 Unknown Rx Allergies Allergy/AdvReac Type Severity Reaction Status Date / Time No Known Allergies Allergy Verified 12/28/23 09:35 Current Medications Generic Name Dose Route Start Last Admin Trade Name Freq PRN Reason Stop Dose Admin norepinephrine 4 mg in 250 mls @ 0 mls/hr 03/19/24 12:30 03/19/24 12:39 Levophed IV 8 mcg/min .Q0M GEORGE 30 mls/hr Administration Protocol Per Protocol PFSH Acute 2 PFSH: Medical History Fall Hypertension Surgical History Hx of eye surgery Family History Other Cancer Social History Smoking and tobacco/nicotine status: never used tobacco/nicotine Alcohol intake: never Substance/Drug Use: never Caregiver/support person: No Lives independently: No Household members: family Sexually active: Yes Do you think of yourself as: Straight/Heterosexual Current gender identity: Female Vitals/I&O/Wt Last Vital Signs Pulse 117 H 03/19/24 12:01 Resp 20 H 03/19/24 13:16 BP 79/67 03/19/24 12:01 Pulse Ox 92 03/19/24 13:16 O2 Del Method Room Air 03/19/24 11:56 03/18/24 03/19/24 03/19/24 22:59 06:59 14:59 Intake Total 1050 / 1050 Balance 1050 / 1050 Weight last 48 hrs Weight 159 lb Physical Exam 2 Narrative: Patient is alert and responds to basic questions. She complains of abdominal pain worse in the left side GI: OTHER: Abdominal examination shows a distended abdomen, abdomen is tender but no peritoneal signs are noted. Tenderness is more on the right than the left side. Digital rectal examination was done and showed evidence of a very large fecal impaction, manual disimpaction was done at the bedside evacuating large amount of hard stool from the rectum. Data 03/19/24 11:32 03/19/24 11:32 Micro: Microbiology 03/19/24 11:32 Blood Culture - Preliminary Blood SPECIMEN COLLECTED 03/19/24 11:30 Blood Culture - Preliminary Blood SPECIMEN COLLECTED A&P Assessment and plan (1) Septic shock: (2) Fecal impaction in rectum: (3) Large bowel obstruction: Plan After complete history, physical examination and review of all available clinical data the following is my assessment. Patient is a 83-year-old female with several medical comorbidities including history of stroke who presents in septic shock and with a large fecal impaction. Manual disimpaction was done at the bedside with good results obtaining large amount of solid stool. Patient abdominal pain may be justified from colonic dilation due to distal obstruction due to his stool. We did a manual disimpaction in the hopes that this will have some therapeutic effect in the patient. Additional sources for her septic shock should also be evaluated a CT scan of the abdomen and pelvis show no evidence of hollow viscus perforation or significant small bowel obstruction that can be the main cause for this symptoms. My clinical assessment is that there is a chance that this large bowel obstruction could be causing patient's symptoms and if this is the case patient may require surgical intervention in the form of an exploratory laparotomy with possible ostomy creation. I have discussed with the family member and I have informed him that patient is a very poor clinical condition and at this moment in time she is not a good surgical candidate as transportation to the operating room and the trauma from surgery can result in her immediate . I have explained that I will advise that we undergo a. Of resuscitation with IV fluids, pressor support and IV antibiotics, during this time we will continue serial abdominal exams and in the next 24 hours we can make a decision regarding the patient will be able to tolerate a trip to the operating room for an exploratory laparotomy. I have explained to the patient and family member that even with a laparotomy there is a high chance of mortality if the cause of her sepsis is an intra-abdominal pathology. I have explained to them that there is a high chance of the patient having significant surgical complications and even mortality during and after the operation. Patient and family member show understanding, they are going to discuss regarding goals of care before making an informed decision whether or not aggressive intervention is a good option. In the interim from the surgical standpoint my recommendation is to continue aggressive resuscitation with fluids and pressors, continue trending the lactate level, continue broad-spectrum antibiotics and monitor bowel function. I will follow-up the patient closely along the ICU team. A goals of care discussion with the family should also be encouraged. Of note, CT scan of the abdomen pelvis does not show indirect signs of ischemia including no evidence of pneumatosis, no evidence of bowel wall thickening, no evidence of ascites. Coding Level of Care Code 03166 Diagnoses Septic shock A41.9; R65.21 Fecal impaction in rectum K56.41 Large bowel obstruction K56.609
--- NOTE | 2024-03-19 13:44 | XRR_ITS ---
PROCEDURE INFORMATION: Exam: XR Chest Exam date and time: 03/19/2024 1:45 PM Age: 83 years old Clinical indication: Other vascular access device placement or adjustment; Central line, non-tunnelled TECHNIQUE: Imaging protocol: Radiologic exam of the chest. Views: 1 view. COMPARISON: CR (CHEST, ) 03/19/2024 12:07 PM FINDINGS: Patient is in oblique position Tubes, catheters and devices: There is a right jugular central venous catheter with its tip projecting in the region of the SVC/RA junction. Lungs: There is atelectasis or infiltrate in the left lung base as before. There is new infiltrate or atelectasis in the right lung base. Pleural spaces: No pneumothorax is detected. Heart/Mediastinum: The heart size is within normal limits. Bones/joints: Unremarkable. XR/XR chest 1V portable [id number] IMPRESSION: 1. New right central line. No pneumothorax detected. 2. Atelectasis/infiltrate left lung base as before with new atelectasis/infiltrate right lung base
--- NOTE | 2024-03-19 13:47 | P.HP_ITS ---
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 Upon evaluation, patient is in moderate to severe distress. She does have difficulty providing history. She does endorse diffuse abdominal pains, worse with palpation of her abdomen. Her son is bedside and helps provide collateral information. Her son reports he missed a call this morning from the nursing facility. When he tried to call back he did not get a response. He was notified they were sending her to the hospital due to abdominal pain. Upon presentation the emergency department, patient was found to be in shock. She was treated with IV fluid bolus, IV antibiotics, central line placement and initiation of Levophed. She was found to have persistent severe abdominal pain despite 8 mg of IV morphine. Labs revealed marked leukocytosis, acute kidney injury with metabolic acidosis, and severe lactic acidosis. Plain films of the chest showed atelectasis/infiltrate in the left lung as well as possible infiltrate/atelectasis in the right lung base. Abdominal CT scan revealed distended colon and rectum with large amount of stool consistent with constipation and suspected fecal impaction. General surgery evaluated and patient underwent bedside fecal disimpaction. Despite disimpaction, pain was persistent. Of note, patient was recently admitted in January where she was found to have a right sided MCA territory stroke resulting in left-sided hemiparesis and dysphagia. Son reports prior to this stroke she was actually very healthy. She was discharged on 02/14/2024 to rehabilitation. Son reports she is been progressing well. She is now standing. She has been started on a diet patient to her tube feeds. He thinks her current diet is honey thickened. Review of Systems 2 Narrative: A complete review of systems was obtained and is negative except as stated in HPI. Medications/Allergies Home Medications Medication Instructions Recorded Confirmed Last Taken Type hydrocortisone 2.5 % topical cream 1 applic [place] DAILY PRN hemorrhoids 11/18/23 02/09/24 Unknown Rx with perineal applicator #30 grams (Proctosol HC) aspirin 81 mg tablet,delayed 81 mg PO DAILY #30 tabs 04/22/24 Unknown Rx release atorvastatin 40 mg tablet 20 mg (1/2 x 40 mg) PO BEDTIME #60 02/14/24 Unknown Rx tabs lisinopril 20 mg tablet 20 mg PO BID #60 tabs 02/14/24 Unknown Rx Allergies Allergy/AdvReac Type Severity Reaction Status Date / Time No Known Allergies Allergy Verified 12/28/23 09:35 PFSH Acute 2 PFSH: Medical History 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 Laceration Abrasion of arm, left Hard of hearing Macular degeneration of left eye Bilateral bunions Hammertoe, bilateral Onychodystrophy Toenail fungus Basal cell carcinoma Fall Hypertension Surgical History Hx of eye surgery Family History Daughter Colon cancer Other Cancer Social History Smoking and tobacco/nicotine status: never used tobacco/nicotine Alcohol intake: never Substance/Drug Use: never Caregiver/support person: No Lives independently: No Household members: family Sexually active: Yes Do you think of yourself as: Straight/Heterosexual Current gender identity: Female Vitals/I&O/Wt Last Vital Signs Pulse 117 H 03/19/24 12:01 Resp 20 H 03/19/24 13:16 BP 79/67 03/19/24 12:01 Pulse Ox 92 03/19/24 13:16 O2 Del Method Room Air 03/19/24 11:56 03/18/24 03/19/24 03/19/24 22:59 06:59 14:59 Intake Total 1050 / 1050 Balance 1050 / 1050 Weight last 48 hrs Weight 72.121 kg Physical Exam 2 Narrative: General: Patient is in moderate to severe distress. Head: Normocephalic. Atraumatic. EOM intact. Dry mucous membranes. Neck: No JVD. Cardiovascular: Tachycardic with regular rhythm. No gallops. No murmurs. No peripheral edema. Lungs: Breath sounds diminished bilateral bases. Poor inspiratory effort. No crackles or wheezes. Skin: No jaundice. No rashes. Abdomen: Bowel sounds are present, abdomen is diffusely tender in all quadrants to palpation and nontender. Feeding tube is present. Genito Urinary: Blanco catheter. Extremities: No cyanosis or clubbing. Musculoskeletal:No swollen or erythematous joints. Neurological: No myoclonus. Referral neurological exam was not performed due to her distress. Data 03/19/24 11:32 03/19/24 11:32 Micro: Microbiology 03/19/24 11:32 Blood Culture - Preliminary Blood SPECIMEN COLLECTED 03/19/24 11:30 Blood Culture - Preliminary Blood SPECIMEN COLLECTED A&P Assessment and plan (1) Septic shock: Source: Suspected abdominal infection versus pneumonia Endorgan damage: Shock, EMILIO, severe lactic acidosis Complete 30 mL/kg body weight IV fluid resuscitation Patient's been started on Levophed, titrate for MAP goal of 65 mmHg Panculture Start broad-spectrum antibiotics, status post vancomycin and Zosyn in ED MRSA swab Procalcitonin and CRP Telemetry Blanco for strict I's and O's Daily weights (2) Abdominal pain: Severe abdominal pain concerning for ischemic bowel General surgery's been consulted, appreciate recommendations Serial exams Trend lactate Ensure adequate perfusion (3) Acute kidney injury: Suspect related to underlying sepsis and hypotension Resuscitate Renally dose medications Avoid nephrotoxins (4) Fecal impaction in rectum: Status post disimpaction by general surgery Serial exams Likely needs to be on increased bowel regimen at baseline after recovery (5) Dysphagia as late effect of stroke: Status post feeding tube placement in January 2024 due to aphasia She is on a modified diet nursing facility, needs to be n.p.o. for now Hold tube feeds (6) Acute right MCA stroke: With known dysphagia and hemiparesis Was reportedly making progress with therapy at nursing facility per son Oral medications in place to hold for now Monitor neurologic exam as needed (7) Hypertension: Hold home lisinopril due to shock and EMILIO Qualifiers: Hypertension type: primary hypertension Qualified Code(s): I10 - Essential (primary) hypertension Plan DVT ppx: Heparin Code Status; Full Code Attestations 2 Medical Necessity Statement*: Patient presents with septic shock with expected hospitalization to cross 2 midnights for vasopressor support, IV fluids, IV fluid resuscitation, serial abdominal exams, electrolyte management, telemetry, and other hospitalized care. Critical Care Time: The high probability of a clinically significant, sudden or life threatening deterioration of the patient's septic shock system(s) required my full and direct attention, intervention and personal management. The critical care time is as shown. This time is in addition to time spent performing any reported procedures but includes the following: [x] Data and vital sign review and interpretation [x] Patient assessment, examination and intervention [x] Documentation [x] Medication orders and management Critical Care Time (min): 60 Coding Level of Care Code Acute Code for [facility] Fwd Diagnoses Septic shock A41.9; R65.21 Abdominal pain R10.9 Acute kidney injury N17.9 Fecal impaction in rectum K56.41 Dysphagia as late effect of stroke I69.391 Acute right MCA stroke I63.511 Primary hypertension I10 Hypertension type: primary hypertension
[2024-03-19 14:05] LABS: Blood Urine 2+ (Negative); Glucose Urine UA 1+ (Normal); Ketones Urine 1+ (Negative); Nitrate Urine Negative (Negative); Protein Urine 2+ (Negative); Urine Appearance Clear (CLEAR); Urine Color Dark Yellow (Yellow); pH Urine 5 (5-7)
[2024-03-19 14:06] LABS: Add Urine Culture? No; Add Urine Microscopic? YES; Bacteria Urine 1+ /hpf; Bilirubin Urine Neg (Negative); Leukocyte Esterase Urine Trace (Negative); Squamous Epithelial Cell Urine 0-4 /hpf (0-5); Urobilinogen Urine 1 mg/dL (Negative); WBC Urine 0-4 /hpf (0-5)
[2024-03-19] MEDS: pantoprazole 40 mg SDV IVP (14:46)
[2024-03-19] MEDS: sodium chloride 0.9% 500 ML 999 ML IV (14:46)
[2024-03-19 15:54] LABS: Lactic Acid level (Lactate) 4.9 mmol/L (0.5-2.2)
[2024-03-19 15:57] LABS: Procalcitonin 2.15 ng/mL (0-0.5)
--- NOTE | 2024-03-19 17:05 | P.PN_ITS ---
Subjective 2 Subjective: Patient currently in the ICU. Abdominal pain and distention are improved, patient had several liquid bowel movements after disimpaction. Vitals/I&O/Wt Last Vital Signs Temp 97.2 F L 03/19/24 15:20 Pulse 91 03/19/24 15:50 Resp 32 H 03/19/24 16:10 BP 118/77 03/19/24 16:10 Pulse Ox 93 03/19/24 16:10 O2 Del Method Room Air 03/19/24 15:35 03/19/24 03/19/24 03/19/24 06:59 14:59 22:59 Intake Total 2350.5 / 2350.5 527.75 / 2878.25 Balance 2350.5 / 2350.5 527.75 / 2878.25 Weight last 48 hrs Weight 160 lb 6.4 oz Weight 159 lb Physical Exam 2 GI: OTHER: Abdomen is mildly distended, there is some tenderness in the right hemiabdomen, no peritonitis, no rebound tenderness. Abdominal exam improved from previous evaluation. Urinary Catheter Management: Blanco: Cath Placed During This Visit: yes Urinary Catheter Date of Insertion: 03/19/24 Data 03/19/24 11:32 03/19/24 11:32 Micro: Microbiology 03/19/24 11:32 Blood Culture - Preliminary Blood SPECIMEN COLLECTED 03/19/24 11:30 Blood Culture - Preliminary Blood SPECIMEN COLLECTED A&P Assessment and plan (1) Large bowel obstruction: (2) Fecal impaction in rectum: Plan Patient has show significant improvement of abdominal examination after fecal disimpaction. She has had several bowel movements. Vital signs are now stable, she has been able to come off the Levophed. Lactate level has trended down from 7 to 4. We will continue conservative management, will continue to monitor I's serial abdominal exams, we will continue to trend lactate level. Will by the morning lactate level is improved and abdominal exam remains stable I will order magnesium citrate for her to assist evacuating all the stool from the distal large bowel. I have informed the family members at the bedside that patient still very high risk and may require a trip to the operating room if things do not improve or worsen, I have informed them that this can cause significant morbidity and mortality for the patient. They show understanding and agree. Attestations 2 Medical Necessity Statement*: Patient will require 2 to 3 days of hospital stay for management of possible large bowel obstruction due to fecal impaction. And sepsis Coding Level of Care Code Acute Code for [facility] Fwd Diagnoses Large bowel obstruction K56.609 Fecal impaction in rectum K56.41
[2024-03-19 19:29] LABS: C.Diff PCR (Lab) NEGATIVE (Negative)
[2024-03-19 22:31] LABS: Glucose Point of Care 150 mg/dL (70-110)
[2024-03-20] VITALS (100 sets, daily range): BP systolic 60–135; BP diastolic 20–84; PULSE 71–106; RESP 10–26; TEMP 37–37.7; O2SAT 85–100; BMI 27.6
--- NOTE | 2024-03-20 01:01 | PC.NURSE ---
Maintenance Fluid Patient's urine output 100 ml in a seven hour period and dark ayse in color. Dr. Oates notified; order placed by physician for NS at 125 ml/hr.
[2024-03-20] MEDS: pantoprazole 40 mg SDV IVP ×2 (01:28→14:31)
[2024-03-20] MEDS: piperacillin-tazobactam 3.375 GM in sodium chloride 0.9% (plus) 50 ML IV ×3 (01:28→18:01)
[2024-03-20] MEDS: sodium chloride 0.9% 1,000 ML 125 ML IV (01:29)
[2024-03-20 04:18] LABS: Basophils # 0.1 10^3/uL (0.0-0.1); Basophils % 0.4 %; Hematocrit 39.5 % (36-47); Lymphocytes # 0.8 10^3/uL (0.8-4.8); Lymphocytes % 4.6 %; Mean Corpuscular HGB Conc 32.4 g/dL (30-55); Mean Corpuscular Hemoglobin 31.2 pg (27-33); Mean Corpuscular Volume 96.3 fl (85-98); Mean Platelet Volume 10.1 fL (7.4-10.4); Monocytes # 1.1 10^3/uL (0.2-0.9); Neutrophils # 16.26 10^3/uL (1.8-7.7); Neutrophils % 88.5 %; Nucleated Red Blood Cells % 0 %; Platelet Count 285 10^3/cmm (157-399); White Blood Count 18.39 10^3/uL (3.29-11.43)
[2024-03-20 04:41] LABS: Alanine Aminotransferase 24 U/L (0-33); Albumin Level 2.9 g/dL (3.5-5.2); Alkaline Phosphatase 83 U/L (35-105); Blood Urea Nitrogen 38 mg/dL (8-23); Calcium 7.8 mg/dL (8.5-10.5); Carbon Dioxide 19 mmol/L (22-29); Chloride 113 mmol/L (98-107); Creatinine Clr Calc Pharmacy 34.1147; Globulin 2.6 g/dL (1.3-4.6); Glucose 161 mg/dL (65-115); Lactic Sepsis W/Reflex 1.5 mmol/L (0.5-2.2); Osmolality Calculated 311 mOsm/kg (285-295); Sodium 144 mmol/L (136-145); Total Bilirubin 0.6 mg/dL (0.15-1.2); Total Protein 5.5 g/dL (6.6-8.7)
[2024-03-20 04:43] LABS: Anion Gap 17.2 (5-19); Aspartate Amino Transferase 28 U/L (0-32); Potassium 5.2 mmol/L (3.5-5.1)
--- NOTE | 2024-03-20 06:25 | XRR_ITS ---
PROCEDURE INFORMATION: Exam: XR Abdomen Exam date and time: 03/20/2024 7:13 AM Age: 83 years old Clinical indication: Constipation; Additional info: Follow up after manual disimpaction TECHNIQUE: Imaging protocol: Radiologic exam of the abdomen. Views: Frontal supine view of the abdomen. 1 View. COMPARISON: CT abdomen pelvis w con* [id number] 03/19/2024 11:39 AM FINDINGS: Tubes, catheters and devices: A gastrostomy catheter is present. Gastrointestinal tract: Moderate stool and gas are noted in the colon. Organs: Left nephrogram is noted with columnization of the ureter. Vasculature: A Blanco balloon is noted within the urinary bladder surrounding by excreted intravenous contrast. Bones/joints: Degenerative changes are noted in the bones. XR/XR abdomen 1V* [id number] IMPRESSION: Support lines and catheters in place as described. Constipation/gaseous distension. Asymmetric excretion of previously administered intravenous contrast noted. Correlate clinically regarding renal function.
[2024-03-20] MEDS: dextrose 5%-sod chloride 0.45% 1,000 ML 75 ML IV (08:18)
[2024-03-20] MEDS: norepinephrine 4 MG/250 ML BAG 7.5 MG IV (08:20)
--- NOTE | 2024-03-20 08:54 | P.PN_ITS ---
Subjective 2 Subjective: 83-year-old female admitted yesterday wi th sepsis and suspected LBO due to fecal impaction. Patient has had a variable hospital course, abdominal pain has resolved, she had multiple bowel movements a very large amount. Vitals/I&O/Wt Last Vital Signs Temp 99.6 F 03/20/24 08:00 Pulse 93 03/20/24 06:15 Resp 17 03/20/24 06:15 BP 92/60 03/20/24 06:15 Pulse Ox 97 03/20/24 06:15 O2 Del Method Room Air 03/20/24 05:30 03/19/24 03/20/24 03/20/24 22:59 06:59 14:59 Intake Total 649.750 / 3000.250 98.812 / 3099.062 19.625 / 19.625 Output Total 200 / 200 200 / 400 Balance 449.750 / 2800.250 -101.188 / 2699.062 19.625 / 19.625 Weight last 48 hrs Weight 160 lb 14.4 oz Weight 160 lb 6.4 oz Weight 159 lb Physical Exam 2 GI: OTHER: Abdomen is soft, minimally tender, minimally distended. No peritoneal signs, abdominal examination significantly improved since yesterday Urinary Catheter Management: Blanco: Cath Placed During This Visit: yes Reason for Continuing Indwelling Catheter: Accurate Measurement of Urinary Output in Critically Ill Patients Urinary Catheter Date of Insertion: 03/19/24 Data 03/20/24 04:07 03/20/24 04:07 Micro: Microbiology 03/19/24 11:32 Blood Culture - Preliminary Blood SPECIMEN COLLECTED 03/19/24 11:30 Blood Culture - Preliminary Blood SPECIMEN COLLECTED A&P Assessment and plan (1) Fecal impaction in rectum: (2) Large bowel obstruction: Plan Patient is having a very good progression after manual fecal disimpaction for fecal impaction causing large bowel obstruction. Patient has had multiple liquid and semisolid bowel movements. I did a rectal examination today the rectal bolus completely empty, her abdominal exam is very benign. White count is trending down and lactate level went down to normal. Patient can be advanced to clear liquid diet and advance as tolerated. Going forward patient will require a daily dose of MiraLAX or mag citrate to prevent further episodes of fecal impaction and constipation. -Large bowel obstruction due to fecal impaction appears resolved -Continue medical management - No indication for surgical intervention at this time -Twice daily MiraLAX versus mag citrate to prevent recurrent symptoms Attestations 2 Medical Necessity Statement*: Per medical team Coding Level of Care Code Acute Code for [facility] Fwd Diagnoses Fecal impaction in rectum K56.41 Large bowel obstruction K56.609
[2024-03-20] MEDS: polyethylene glycol 3350 Pkt 17 gm PEG-TUBE ×2 (09:29→18:01)
--- NOTE | 2024-03-20 10:47 | PM.PN ---
Subjective Subjective: Patient is more awake and alert this morning. She reports her abdominal pain is resolved. Per report, she has had copious stool output. X-ray this morning did show some residual constipation, much improved than prior. She is currently on minimal Levophed infusion. She denies nausea or vomiting. Denies fevers or chills. Medications: Reviewed: Yes Vitals/I&O/Wt Last Vital Signs Temp 99.6 F 03/20/24 08:00 Pulse 90 03/20/24 10:30 Resp 16 03/20/24 10:30 BP 90/64 03/20/24 10:30 Pulse Ox 93 03/20/24 10:30 O2 Del Method Room Air 03/20/24 05:30 03/19/24 03/20/24 03/20/24 22:59 06:59 14:59 Intake Total 649.750 / 3000.250 98.812 / 3099.062 1019.625 / 1019.625 Output Total 200 / 200 200 / 400 Balance 449.750 / 2800.250 -101.188 / 2699.062 1019.625 / 1019.625 Weight last 48 hrs Weight 72.983 kg Weight 72.756 kg Weight 72.121 kg Physical Exam Narrative: General: Patient is awake. Pleasant. Head: Normocephalic. Atraumatic. EOM intact. Dry mucous membranes. Appears somewhat hard of hearing. Neck: No JVD. Cardiovascular: Tachycardic with regular rhythm. No gallops. No murmurs. Lungs: Breath sounds diminished bilateral bases. Poor inspiratory effort. No crackles or wheezes. Skin: No jaundice. No rashes. Abdomen: Bowel sounds are present, nontender. Feeding tube. Genito Urinary: Blanco catheter. Extremities: No cyanosis or clubbing. Musculoskeletal:No swollen or erythematous joints. Neurological: No myoclonus. Moves all extremities. Urinary Catheter Management: Blanco: Cath Placed During This Visit: yes Reason for Continuing Indwelling Catheter: Accurate Measurement of Urinary Output in Critically Ill Patients Urinary Catheter Date of Insertion: 03/19/24 Data 03/20/24 04:07 03/20/24 04:07 Micro: Microbiology 03/19/24 11:32 Blood Culture - Preliminary Blood SPECIMEN COLLECTED 03/19/24 11:30 Blood Culture - Preliminary Blood SPECIMEN COLLECTED A&P Assessment and plan (1) Septic shock: Source: Suspected abdominal infection versus pneumonia Wean Levophed as tolerated, MAP goal of 65 mmHg Follow cultures Discontinue vancomycin MRSA swab is pending Continue Zosyn (03/19-present) Blanco for strict I's and O's Daily weights (2) Abdominal pain: Pain appears to be from a large bowel obstruction from fecal impaction now status post disimpaction KUB reviewed General surgery following, appreciate recommendations Serial exams Trend lactate Ensure adequate perfusion (3) Acute kidney injury: Suspect related to underlying sepsis and hypotension Unfortunately renal function has not improved, she remains with mild metabolic acidosis, worsening azotemia and still elevated creatinine Renally dose medications Avoid nephrotoxins Strict I's and O's Continue IV hydration (4) Fecal impaction in rectum: Status post disimpaction Started on more aggressive bowel regiment (5) Dysphagia as late effect of stroke: Status post feeding tube placement in January 2024 due to dysphagia She is on a modified diet nursing facility, will request speech therapy evaluation Start trickle tube feeds with nutrition consult for recommendations (6) 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 Critical Care Time: The high probability of a clinically significant, sudden or life threatening deterioration of the patient's cardiovascular system on vasopressors system(s) required my full and direct attention, intervention and personal management. The critical care time is as shown. This time is in addition to time spent performing any reported procedures but includes the following: [x] Data and vital sign review and interpretation [x] Patient assessment, examination and intervention [x] Documentation [x] Medication orders and management Critical Care Time (min): 40 Coding Level of Care Code Acute Code for [facility] Fwd Diagnoses Septic shock A41.9; R65.21 Abdominal pain R10.9 Acute kidney injury N17.9 Fecal impaction in rectum K56.41 Dysphagia as late effect of stroke I69.391 Acute right MCA stroke I63.511 Primary hypertension I10 Hypertension type: primary hypertension
--- NOTE | 2024-03-20 12:20 | PC.NUTR ---
Addendum entered and electronically signed by Catherine Shin 03/20/24 12:24: As medically appropriate, recommend decreasing D5W as TF advances to goal rate of 40 mls/hr. Original Note: Received consult for tube feeding recommendations. Recommend starting Jevity 1.5 @ 10 mls/hr, increasing 10 mls/hr Q4H as tolerated until goal rate of 40 mls/hr is reached, with FWF 120mls Q4H or per MD discretion. Details in RD assessment.
--- NOTE | 2024-03-20 13:00 | PC.SLP ---
GYMNASTICS COACH OR INSTRUCTOR evaluation attempted. Patient had difficulty alerting. She was unable to orient and participate in evaluation. GYMNASTICS COACH OR INSTRUCTOR will follow-up with patient tomorrow.
--- NOTE | 2024-03-20 16:55 | PC.NURSE ---
Patient picking and pulling on right IJ central line. Multiple attempts by staff made to redirect patient and educate on not pulling on central line access. Patient requiring pressors to maintain BP. Notified Dr. Gonzales, received order for medical restraint.
[2024-03-20] MEDS: enoxaparin 40 mg/0.4 mL Syringe SUBCUT (21:16)
[2024-03-20] MEDS: atorvastatin 40 mg Tablet 20 MG PO (21:16)
[2024-03-20 21:33] LABS: Glucose Point of Care 150 mg/dL (70-110)
[2024-03-20] MEDS: dextrose 5%-sod chloride 0.45% 1,000 ML 50 ML IV (22:47)
[2024-03-21] VITALS (73 sets, daily range): BP systolic 77–174; BP diastolic 40–116; PULSE 69–102; RESP 7–25; TEMP 37.1–37.5; O2SAT 86–96; BMI 28.1
[2024-03-21] MEDS: piperacillin-tazobactam 3.375 GM in sodium chloride 0.9% (plus) 50 ML IV ×2 (01:19→09:20)
[2024-03-21] MEDS: pantoprazole 40 mg SDV IVP ×2 (01:20→14:36)
--- NOTE | 2024-03-21 04:00 | XRR_ITS ---
PROCEDURE INFORMATION: Exam: XR Abdomen Exam date and time: 03/21/2024 3:41 AM Age: 83 years old Clinical indication: Condition or disease; Other: Bowel obstruction; Additional info: Post bowel obstruction TECHNIQUE: Imaging protocol: Radiologic exam of the abdomen. Views: 3 or more views. COMPARISON: CR (ABDOMEN, ) 03/20/2024 7:13 AM FINDINGS: Tubes, catheters and devices: Central venous catheter is terminating over the right atrium. Gastrointestinal tract: Mild gaseous distension of the colon. Small bowel loops are grossly unremarkable but not well characterized. Negative for pneumatosis intestinalis. Intraperitoneal space: Negative for pneumoperitoneum. Bones/joints: Unremarkable for age. XR/XR abdomen 3V 33606 IMPRESSION: 1. Colonic distension. 2. No obvious small bowel dilation.
[2024-03-21 04:05] LABS: Basophils % 0.3 %; Eosinophils % 0.2 %; Hematocrit 30.8 % (36-47); Lymphocytes # 1.1 10^3/uL (0.8-4.8); Lymphocytes % 8.6 %; Mean Corpuscular HGB Conc 32.5 g/dL (30-55); Mean Corpuscular Hemoglobin 31.4 pg (27-33); Mean Corpuscular Volume 96.9 fl (85-98); Mean Platelet Volume 10.3 fL (7.4-10.4); Monocytes # 0.9 10^3/uL (0.2-0.9); Monocytes % 7.3 %; Neutrophils # 10.61 10^3/uL (1.8-7.7); Neutrophils % 83.2 %; Nucleated Red Blood Cells % 0 %; Platelet Count 211 10^3/cmm (157-399); Red Blood Count 3.18 10^6/uL (3.85-5.65); Red Cell Distribution Width 14.4 % (12.1-15.1); White Blood Count 12.74 10^3/uL (3.29-11.43)
[2024-03-21 04:24] LABS: Alanine Aminotransferase 16 U/L (0-33); Albumin Level 2.6 g/dL (3.5-5.2); Alkaline Phosphatase 73 U/L (35-105); Anion Gap 11.5 (5-19); Aspartate Amino Transferase 17 U/L (0-32); Blood Urea Nitrogen 40 mg/dL (8-23); Calcium 7.5 mg/dL (8.5-10.5); Carbon Dioxide 21 mmol/L (22-29); Chloride 111 mmol/L (98-107); Creatinine Clr Calc Pharmacy 37.2706; Globulin 2.4 g/dL (1.3-4.6); Glucose 132 mg/dL (65-115); Magnesium 1.8 mg/dL (1.7-2.3); Osmolality Calculated 302 mOsm/kg (285-295); Phosphorus 3.1 mg/dL (2.5-4.5); Potassium 3.5 mmol/L (3.5-5.1); Sodium 140 mmol/L (136-145); Total Bilirubin 0.3 mg/dL (0.15-1.2)
--- NOTE | 2024-03-21 07:44 | P.PN_ITS ---
Subjective 2 Subjective: Patient is showing very good progression after manual disimpaction for fecal impaction causing large bowel obstruction. This morning she does not complain of any abdominal pain, she has continued to have bowel movements including overnight. Vital signs have remained mostly stable, with lower requirements for Levophed. Vitals/I&O/Wt Last Vital Signs Temp 98.8 F 03/21/24 04:30 Pulse 82 03/21/24 06:15 Resp 9 L 03/21/24 06:15 BP 112/78 03/21/24 06:15 Pulse Ox 91 03/21/24 06:15 O2 Del Method Room Air 03/21/24 04:30 03/20/24 03/21/24 03/21/24 22:59 06:59 14:59 Intake Total 1140.333 / 2257.583 512.325 / 2769.908 Output Total 300 / 300 300 / 600 Balance 840.333 / 1957.583 212.325 / 2169.908 Weight last 48 hrs Weight 163 lb 14.4 oz Weight 160 lb 14.4 oz Weight 160 lb 6.4 oz Weight 159 lb Physical Exam 2 GI: OTHER: Abdomen is soft, nontender, minimally distended, abdominal exam much improved from presentation and improved from yesterday. Urinary Catheter Management: Blanco: Cath Placed During This Visit: yes Reason for Continuing Indwelling Catheter: Accurate Measurement of Urinary Output in Critically Ill Patients Urinary Catheter Date of Insertion: 03/19/24 Data 03/21/24 03:30 03/21/24 03:30 Micro: Microbiology 03/19/24 11:32 Blood Culture - Preliminary Blood NEGATIVE TO DATE 03/19/24 11:30 Blood Culture - Preliminary Blood NEGATIVE TO DATE A&P Assessment and plan (1) Fecal impaction in rectum: (2) Large bowel obstruction: Plan Very good progression from the general surgery standpoint after a large bowel obstruction Kaus via fecal impaction. Manual disimpaction was required and after this patient has been able to resolved her symptoms. She was initiated on trickle feeds and is tolerating. My recommendation is to continue on aggressive bowel regimen to ensure no further episodes of fecal impaction. As of now patient has continued to have several bowel movements. X-ray done this morning is improved from yesterday in terms of colonic distention as well as the stool burden. No surgical intervention is indicated at this time. Additional management appreciated per medical team. Of note additional laboratory workup shows significant improvement of the white count.3 -Can continue tube feeds and advance to goal as tolerated -Continue aggressive twice a day bowel regimen -No other surgical intervention is indicated at this time. Attestations 2 Medical Necessity Statement*: Per medical team Coding Level of Care Code 09397 Diagnoses Fecal impaction in rectum K56.41 Large bowel obstruction K56.609
[2024-03-21] MEDS: aspirin 81 mg EC Tablet PO (08:16)
[2024-03-21] MEDS: polyethylene glycol 3350 Pkt 17 gm PEG-TUBE (08:16)
--- NOTE | 2024-03-21 12:48 | PM.DCS ---
Discharge Providers Date of Admission: 03/19/24 13:47 Date of Discharge: March 21, 2024 Attending Provider at Admission: Xavier Gonzales MD Attending Provider at Discharge: Luz Elena Emery MD Primary Care Provider: Malcolm Paz Diagnoses at Discharge Discharge Diagnosis (1) Fecal impaction in rectum: Status: Inactive (2) Large bowel obstruction: Status: Inactive Reason for Visit Reason for Visit: ABD PAIN Hospital Course Hospital Course 83-year-old female with recent MCA stroke with with left-sided hemiplegia, patient received PEG tube after her stroke, presented from the half-way with severe abdominal pain. She was found to have large bowel obstruction with fecal impaction and septic shock. She underwent fecal disimpaction by general surgery, there was transient concern for ischemic bowel however it is less likely her leukocytosis is improving, she is having regular bowel movement, trickle feed was started which patient tolerated very well, she is full code by status. General surgery is recommending aggressive bowel regimen at the time of discharge. She was kept on Zosyn until day of discharge. Physical Exam Narrative: Patient laying supine Able to answer simple questions No new focal deficit Currently on room air Hemodynamically stable Abdomen is soft Sluggish bowel sounds are present Urinary Catheter Management: Blanco: Cath Placed During This Visit: yes Reason for Continuing Indwelling Catheter: Accurate Measurement of Urinary Output in Critically Ill Patients Urinary Catheter Date of Insertion: 03/19/24 Discharge Data Studies Completed and Pending Completed Studies During Hospitalization Category Date Time Status CT abdomen pelvis w con* 23098 Stat Cat Scan 03/19/24 11:09 Completed CXRP [XR chest 1V portable 21020] Stat Exams 03/19/24 11:56 Completed CXRP [XR chest 1V portable 09592] Stat Exams 03/19/24 13:44 Completed XR abdomen 1V* [id number] Routine Exams 03/20/24 06:25 Completed XR abdomen 3V 70994 Routine Exams 03/21/24 04:00 Completed Pending at discharge Category Date Time Status Blood Culture Stat Lab 03/19/24 11:32 Results MRSA [Methicillin Resistant S.aureu] Routine Lab 03/19/24 16:33 Received Radiology Impressions Abdomen/Pelvis CT 03/19/24 11:09 IMPRESSION: 1. Distended colon and rectum with a large amount of stool consistent with constipation and probable fecal impaction areas of narrowing ascending colon favored to be areas of peristalsis, see above 2. Gastrostomy tube 3. Definite left renal cyst and probable small cysts both kidneys but too small to accurately characterize 4. Small cystic lesion right ovary which can be followed up with ultrasound next lines 5. 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 Next lines 5. Hiatal hernia COMMENTS: Consistent with the [employer]'s Incidental Findings Committee white paper (J Am Vladimir Radiol 2018): Any incidental renal lesion less than 1 cm or classified as too small to characterize, or any incidental cystic renal lesion characterized as simple-appearing, is likely benign. No follow-up imaging is recommended for these lesions per consensus recommendations based on imaging criteria. Chest X-Ray 03/19/24 13:44 IMPRESSION: 1. New right central line. No pneumothorax detected. 2. Atelectasis/infiltrate left lung base as before with new atelectasis/infiltrate right lung base Abdomen X-Ray 03/21/24 04:00 IMPRESSION: 1. Colonic distension. 2. No obvious small bowel dilation. Laboratory Results WBC 12.74 10^3/uL (3.29-11.43) H 03/21/24 03:30 RBC 3.18 10^6/uL (3.85-5.65) L 03/21/24 03:30 Hgb 10.00 g/dL (11.27-16.99) L 03/21/24 03:30 Hct 30.8 % (36-47) L 03/21/24 03:30 MCV 96.9 fl (85-98) 03/21/24 03:30 MCH 31.4 pg (27-33) 03/21/24 03:30 MCHC 32.5 g/dL (30-55) 03/21/24 03:30 RDW 14.4 % (12.1-15.1) 03/21/24 03:30 Plt Count 211 10^3/cmm (157-399) 03/21/24 03:30 MPV 10.3 fL (7.4-10.4) 03/21/24 03:30 Neut % (Auto) 83.2 % 03/21/24 03:30 Lymph % (Auto) 8.6 % 03/21/24 03:30 [place] % (Auto) 7.3 % 03/21/24 03:30 Eos % (Auto) 0.2 % 03/21/24 03:30 Baso % (Auto) 0.3 % 03/21/24 03:30 Neut # (Auto) 10.61 10^3/uL (1.8-7.7) H 03/21/24 03:30 Lymph # (Auto) 1.1 10^3/uL (0.8-4.8) 03/21/24 03:30 [place] # (Auto) 0.9 10^3/uL (0.2-0.9) 03/21/24 03:30 Eos # (Auto) 0.0 10^3/uL (0.0-0.8) 03/21/24 03:30 Baso # (Auto) 0.0 10^3/uL (0.0-0.1) 03/21/24 03:30 Nucleated RBC % (auto) 0 % 03/21/24 03:30 Nucleated RBCs # 0.0 /100WBC 03/21/24 03:30 Sodium 140 mmol/L (136-145) 03/21/24 03:30 Potassium 3.5 mmol/L (3.5-5.1) 03/21/24 03:30 Chloride 111 mmol/L (98-107) H 03/21/24 03:30 Carbon Dioxide 21 mmol/L (22-29) L 03/21/24 03:30 Anion Gap 11.5 (5-19) 03/21/24 03:30 BUN 40 mg/dL (8-23) H 03/21/24 03:30 Creatinine 1.1 mg/dL (0.5-0.9) H 03/21/24 03:30 GFR Calculation Not Reportable 03/21/24 03:30 Glucose 132 mg/dL (65-115) H 03/21/24 03:30 POC Glucose 150 mg/dL (70-110) H 03/20/24 21:17 Calculated Osmolality 302 mOsm/kg (285-295) H 03/21/24 03:30 Lactic Acid 1.5 mmol/L (0.5-2.2) 03/20/24 04:07 Lactic Acid (Sepsis) 4.9 mmol/L (0.5-2.2) H* 03/19/24 14:20 Calcium 7.5 mg/dL (8.5-10.5) L 03/21/24 03:30 Phosphorus 3.1 mg/dL (2.5-4.5) 03/21/24 03:30 Magnesium 1.8 mg/dL (1.7-2.3) 03/21/24 03:30 Total Bilirubin 0.3 mg/dL (0.15-1.2) 03/21/24 03:30 AST 17 U/L (0-32) 03/21/24 03:30 ALT 16 U/L (0-33) 03/21/24 03:30 Alkaline Phosphatase 73 U/L (35-105) 03/21/24 03:30 C-Reactive Protein 3.0 mg/L (0.0-4.9) 03/19/24 14:20 Total Protein 5.0 g/dL (6.6-8.7) L 03/21/24 03:30 Albumin 2.6 g/dL (3.5-5.2) L 03/21/24 03:30 Globulin 2.4 g/dL (1.3-4.6) 03/21/24 03:30 Lipase 106 U/L (13-60) H 03/19/24 11:32 Procalcitonin 2.15 ng/mL (0-0.5) H 03/19/24 14:20 Urine Color Dark yellow (Yellow) 03/19/24 13:48 Urine Appearance Clear (CLEAR) 03/19/24 13:48 Urine pH 5 (5-7) 03/19/24 13:48 Ur Specific [place] 1.010 (1.005-1.030) 03/19/24 13:48 Urine Protein 2+ (Negative) H 03/19/24 13:48 Urine Glucose (UA) 1+ (Normal) H 03/19/24 13:48 Urine Ketones 1+ (Negative) H 03/19/24 13:48 Urine Blood 2+ (Negative) H 03/19/24 13:48 Urine Nitrate Negative (Negative) 03/19/24 13:48 Urine Bilirubin Neg (Negative) 03/19/24 13:48 Urine Urobilinogen 1 mg/dL (Negative) H 03/19/24 13:48 Ur Leukocyte Esterase Trace (Negative) H 03/19/24 13:48 Urine RBC 5-10 /hpf (0-2) H 03/19/24 13:48 Urine WBC 0-4 /hpf (0-5) H 03/19/24 13:48 Ur Squamous Epith Cells 0-4 /hpf (0-5) H 03/19/24 13:48 Amorphous Sediment Not Reportable 03/19/24 13:48 Urine Bacteria 1+ /hpf (NONE) H 03/19/24 13:48 C. difficile (PCR) Negative (Negative) 03/19/24 18:08 Vitals Last Vital Signs Temp 98.8 F 03/21/24 04:30 Pulse 69 03/21/24 10:15 Resp 18 03/21/24 10:15 BP 120/60 03/21/24 10:15 Pulse Ox 92 03/21/24 10:15 O2 Del Method Room Air 03/21/24 04:30 Discharge Plan Discharge Patient Disposition: Xfer SNF Condition: Stable Prescriptions: New polyethylene glycol 3350 17 gram Powder In Packet 17 g peg-tube BID Qty: 30 4RF Docuzen 8.6-50 mg tablet 1 tab-cap PO BID Qty: 90 3RF amoxicillin-pot clavulanate 875-125 mg tablet 1 tab PO BID Qty: 10 0RF Continued hydrocortisone [Proctosol HC] 2.5 % cream with perineal applicator 1 applic [place] DAILY PRN (Reason: hemorrhoids) Qty: 30 1RF aspirin 81 mg Tablet,Delayed Release (Dr/Ec) 81 mg PO DAILY Qty: 30 0RF atorvastatin 40 mg Tablet 20 mg PO BEDTIME Qty: 60 0RF lisinopril 20 mg Tablet 20 mg PO BID Qty: 60 0RF acetaminophen 325 mg Tablet 325 mg PO Q4H PRN (Reason: Pain) Milk of Magnesia 400 mg/5 mL Suspension 30 ml PO DAILY PRN (Reason: Constipation) Dulcolax (bisacodyl) 10 mg Suppository 10 mg [place] DAILY PRN (Reason: Constipation) Discharge Orders: Discharge Order (Routine); Ordered 03/21/24 Ordered By: Luz Elena Emery Referrals: [facility] [place] [Outside] Malcolm Paz FNP [Primary Care Provider] - Discharge Diet: As Directed Patient Instructions: Opioid Safety Activity Restrictions/Additional Instructions: Please keep her on trickle feed 10 to 15 mL/h for next 48 to 72 hours and advance to her half-way PEG tube feeding regimen only after 03/23 Discharge Attestations Time Spent in Discharge Care*: greater than 30 min Quality Metrics Clinical Quality Measures [ No reported AMI, CVA or VTE this stay] Coding Level of Care Code Acute Code for Chg Fwd Diagnoses Fecal impaction in rectum K56.41 Large bowel obstruction K56.609
[2024-03-21 14:54] LABS: SARS Covid-2 Antigen negative (Negative)
[2024-03-21 15:39] LABS: Methicillin-Resist S.aureu PCR DETECTED (NOT DETECTED)
--- NOTE | 2024-03-21 18:51 | PC.NURSE ---
Patient DC'd back to longterm. Called report earlier this shift. Notified liliam cole for transport. Patient left facility [id number] via EMS. All IVs removed, IJ removed, lindo removed. All meds sent to [facility]
== END 2024-03-21 18:45 | disposition skilled nursing facility (03) | DRG 871 ==
LOC: ER 13:10 → ICU 13:52
PROVIDERS: Admitting Provider Internal Medicine; Emergency Provider Emergency Medicine; PCP Nurse Practitioner Family; Visit Provider Internal Medicine
DX: A41.9 Sepsis, unspecified organism (principal); R65.21 Severe sepsis with septic shock; N17.9 Acute kidney failure, unspecified; K56.699 Other intestinal obstruction unspecified as to partial versus complete obstruction; E87.20 Acidosis, unspecified; I69.954 Hemiplegia and hemiparesis following unspecified cerebrovascular disease affecting left non-dominant side; K56.41 Fecal impaction; I69.991 Dysphagia following unspecified cerebrovascular disease; I10 Essential (primary) hypertension; Z93.1 Gastrostomy status; Z79.82 Long term (current) use of aspirin
CPT/HCPCS: 36415; 36416; 36592; 51702; 71045; 74018; 74021; 74177; 80053; 81001; 82962; 83605; 83690; 83735; 84100; 84145; 85025; 86140; 87040; 87426; 87493; 87641; 92523; 92610; 93005; 96365; 96366; 96367; 96372; 96375; 97161; 99291; 99292; A4570; C9113; J1650; J2270; J2405; J2543; J3370; J7030; J7040; J7050; J7799; Q9967

== ENCOUNTER 2024-10-04 10:15 | Inpatient (IN) | payer MEDICARE, MEDICAID, SELFPAY ==
[2024-10-04] VITALS (13 sets, daily range): BP systolic 100–172; BP diastolic 65–92; PULSE 69–91; RESP 18–29; TEMP 37.4; O2SAT 93–97
--- NOTE | 2024-10-04 10:27 | CT_ITS ---
WS: [id number] CT HEAD NONCONTRAST HISTORY: Altered mental status TECHNIQUE: Contiguous axial imaging performed through the brain. Bone and soft tissue windows. Sagitt al and coronal reformats reviewed. All CT scans at [facility] use at least one of these dose optimization techniques: automated exposure control; mA and/or kV adjustment per patient size (includ es targeted exams where dose is matched to clinical indication); or iterative reconstruction. DLP: 1141.14 mGy.cm COMPARISON: 02/10/2024 No acute intracranial hemorrhage, midline shift or mass effect. Severe atrophy and contiguous confluent low-attenuation throughout the white matter. Atrophy is prese nt within the cerebellum and cerebrum. Multiple scattered lacunar infarcts. Ventricles: Ventricular enlargement appears more prominent as compared to 02/10/2024. Increased roundi ng of the frontal and occipital horns of the lateral ventricles. No inferior displacement of the cerebellar tonsils. Paranasal sinuses: As visualized are clear. Mastoid air cells: Well pneumatized. Calvarium and scalp: Skull is intact with no soft tissue edema or swelling. CT/CT head wo con* [id number] IMPRESSION: 1. No acute intracranial hemorrhage or edema. 2. Severe cerebral and cerebellar atrophy with confluent chronic small vessel disease. 3. Progression of ventriculomegaly since the prior study. Correlate for normal pressure hydrocephalus.
--- NOTE | 2024-10-04 10:38 | ECG_ITS ---
[facility] Test Date: 2024-10-04 Pat Name: Geri Spencer Department: Room: Gender: Female Senior Mechanical Designer: : 1940 Requested By: [place] Order Number: [id number] Dasha MD: Albert Rodriguez M.D. Measurements Intervals [place] Rate: 80 P: 34 SC: 162 QRS: -49 QRSD: 84 T: 5 QT: 376 QTc: 436 Interpretive Statements SINUS RHYTHM LOW QRS VOLTAGE IN PRECORDIAL LEADS [QRS DEFLECTION < 1.0 mV IN CHEST LEADS] S1-S2-S3 PATTERN, CONSISTENT WITH PULMONARY DISEASE, RVH, OR NORMAL VARIANT PATTERN CONSISTENT WITH PULMONARY DISEASE LEFT ANTERIOR FASCICULAR BLOCK [QRS AXIS <= -45, QR IN I Compared to ECG 03/19/2024 11:30:45 Low QRS voltage now present Right ventricular hypertrophy now present Left anterior fascicular block now present Sinus tachycardia no longer present Left-axis deviation no longer present Electronically Signed On 10-06-2024 22:02:54 LBD TEACHER by Albert Rodriguez M.D. [email or web address]
--- NOTE | 2024-10-04 10:43 | W.ED.GENADLT ---
HPI - General Adult General: Chief complaint: General Medical Stated complaint: AMS, Low BP Time Seen by Provider: 10/04/24 10:25 History of Present Illness: Associated symptoms: Deny chest pain, dyspnea or rash Related Data Home Medications Medication Instructions Recorded Confirmed acetaminophen 325 mg tablet 325 mg PO Q4H PRN Pain 03/20/24 10/04/24 bisacodyl 10 mg rectal suppository 10 mg DE DAILY PRN Constipation 03/20/24 10/04/24 (Dulcolax (bisacodyl)) magnesium hydroxide 400 mg/5 mL 30 ml PO DAILY PRN Constipation 03/20/24 10/04/24 oral suspension (Milk of Magnesia) Lactobacillus rhamnosus GG 10 1 cap PO DAILY 10/04/24 10/04/24 billion cell capsule (Culturelle) divalproex 125 mg capsule,delayed 250 mg PO BID 10/04/24 10/04/24 release sprinkle Previous Rx's Medication Instructions Recorded hydrocortisone 2.5 % topical cream 1 applic DE DAILY PRN hemorrhoids 11/18/23 with perineal applicator #30 grams (Proctosol HC) aspirin 81 mg tablet,delayed 81 mg PO DAILY #30 tabs 02/14/24 release atorvastatin 40 mg tablet 20 mg (1/2 x 40 mg) PO BEDTIME #60 02/14/24 tabs lisinopril 20 mg tablet 20 mg PO BID #60 tabs 02/14/24 polyethylene glycol 3350 17 gram 17 g peg-tube BID #30 ea 03/21/24 oral powder packet Allergies Allergy/AdvReac Type Severity Reaction Status Date / Time No Known Allergies Allergy Verified 12/28/23 09:35 Review of Systems Const: Denies: fever(s) or chills Card: Denies: chest pain Resp: Denies: dyspnea GI: Denies: abdominal pain : Denies: dysuria, urinary frequency or urinary urgency Musc: Denies: neck pain or back pain Skin/Breast: Denies: rash PFSH ED PFSH: Medical History Acute kidney injury Abdominal pain Large bowel obstruction Fecal impaction in rectum Septic shock 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 Laceration Abrasion of arm, left Hard of hearing Macular degeneration of left eye Bilateral bunions Hammertoe, bilateral Onychodystrophy Toenail fungus Basal cell carcinoma Fall Hypertension Surgical History Hx of eye surgery Family History Daughter Colon cancer Other Cancer Social History Smoking and tobacco/nicotine status: never used tobacco/nicotine Alcohol intake: never Substance/Drug Use: never Caregiver/support person: No Lives independently: No Household members: family Sexually active: Yes Do you think of yourself as: Straight/Heterosexual Current gender identity: Female Physical Exam Const: COMMON NORMALS: no acute distress GENERAL APPEARANCE: cooperative and comfortable ORIENTATION/CONSCIOUSNESS: Yes awake, Yes oriented to person, Yes oriented to place and Yes oriented to time HENMT: COMMON NORMALS: normocephalic, atraumatic and hearing grossly normal bilaterally HEAD & SCALP: normocephalic and atraumatic Resp: COMMON NORMALS: normal respiratory effort, No retractions, No use of accessory muscles and clear to auscultation bilaterally AUSCULTATION: clear to auscultation bilaterally Cardio: COMMON NORMALS: regular rate, regular rhythm and No murmurs present (Cardio) RATE: regular rate RHYTHM: regular rhythm GI: COMMON NORMALS: Soft to palpation and No hepatosplenomegaly present AUSCULTATION: Yes normoactive bowel sounds PALPATION: Yes Soft to palpation, No Tenderness to palpation present (GI), No Guarding due to palpation present (GI) and Yes No hepatosplenomegaly present Extremity: COMMON NORMALS: normal to inspection, capillary refill normal, no clubbing, cyanosis or edema, no calf tenderness and no pedal edema Neuro: SENSORIUM/ORIENTATION: Yes oriented to person, Yes oriented to place and Yes oriented to time Skin: COMMON NORMALS: no rashes or lesions noted GENERAL SKIN EXAM: no rashes or lesions noted Course Vital Signs: Vital signs: Vital Signs Temperature 99.3 F 10/04/24 10:19 Pulse Rate 78 10/04/24 10:40 Respiratory Rate 21 H 10/04/24 10:40 Blood Pressure 119/79 10/04/24 10:40 Pulse Oximetry 96 10/04/24 10:40 Oxygen Delivery Me thod Nasal Cannula 10/04/24 10:19 Oxygen Flow Rate 2 10/04/24 10:19 [facility] - General Adult Lab Data 10/04/24 11:35 10/04/24 11:[address] 10/04/24 10:27 IMPRESSION: 1. No acute intracranial hemorrhage or edema. 2. Severe cerebral and cerebellar atrophy with confluent chronic small vessel disease. 3. Progression of ventriculomegaly since the prior study. Correlate for normal pressure hydrocephalus. Laboratory Results WBC 13.70 10^3/uL (3.29-11.43) H 10/04/24 11:35 RBC 3.90 10^6/uL (3.85-5.65) 10/04/24 11:35 Hgb 12.40 g/dL (11.27-16.99) 10/04/24 11:35 Hct 37.5 % (36-47) 10/04/24 11:35 MCV 96.2 fl (85-98) 10/04/24 11:35 MCH 31.8 pg (27-33) 10/04/24 11:35 MCHC 33.1 g/dL (30-55) 10/04/24 11:35 RDW 13.0 % (12.1-15.1) 10/04/24 11:35 Plt Count 235 10^3/cmm (157-399) 10/04/24 11:35 MPV 9.9 fL (7.4-10.4) 10/04/24 11:35 Neut % (Auto) 85.2 % 10/04/24 11:35 Lymph % (Auto) 4.5 % 10/04/24 11:35 Hughes % (Auto) 9.7 % 10/04/24 11:35 Eos % (Auto) 0.0 % 10/04/24 11:35 Baso % (Auto) 0.2 % 10/04/24 11:35 Neut # (Auto) 11.68 10^3/uL (1.8-7.7) H 10/04/24 11:35 Lymph # (Auto) 0.6 10^3/uL (0.8-4.8) L 10/04/24 11:35 Hughes # (Auto) 1.3 10^3/uL (0.2-0.9) H 10/04/24 11:35 Eos # (Auto) 0.0 10^3/uL (0.0-0.8) 10/04/24 11:35 Baso # (Auto) 0.0 10^3/uL (0.0-0.1) 10/04/24 11:35 Nucleated RBC % (auto) 0 % 10/04/24 11:35 Nucleated RBCs # 0.0 /100WBC 10/04/24 11:35 Specimen Type Arterial 10/04/24 10:51 Sample Site Radial, right 10/04/24 10:51 ABG pH 7.45 (7.35-7.45) 10/04/24 10:51 ABG pCO2 34.5 mmHg (35-45) L 10/04/24 10:51 ABG pO2 66.4 mmHg (80.0-100.0) L 10/04/24 10:51 ABG PO2/FiO2 Ratio 237 10/04/24 10:51 ABG HCO3 24.2 mmol/L (22-26) 10/04/24 10:51 ABG O2 Saturation 93.8 10/04/24 10:51 ABG Base Excess 0.6 mmol/L (-2.0-2.0) 10/04/24 10:51 Senthil Test N/a 10/04/24 10:51 A-a O2 Gradient 11.9 mmHg (5-10) H 10/04/24 10:51 Hematocrit 38.1 % (37-47) 10/04/24 10:51 Hgb O2 Saturation 92.3 % (95-100) L 10/04/24 10:51 Carboxyhemoglobin 1.1 %THgb (0.4-20.1) 10/04/24 10:51 Methemoglobin 0.5 % (0.4-1.5) 10/04/24 10:51 Total Hemoglobin 12.4 g/dL (12-16) 10/04/24 10:51 Sodium 127.0 mmol/L (131-143) L 10/04/24 10:51 Potassium 4.1 mmol/L (3.5-5.0) 10/04/24 10:51 Glucose 126.0 mg/dL (70-115) H 10/04/24 10:51 Ionized Calcium 1.2 mmol/L (1.1-1.4) 10/04/24 10:51 O2 Delivery Device Nc 10/04/24 10:51 O2 Liters/Min 2.0 % 10/04/24 10:51 FiO2 28.0 % 10/04/24 10:51 Cardroom Drawing Runner ID Amy 10/04/24 10:51 Sodium 128 mmol/L (136-145) L 10/04/24 11:35 Potassium 4.5 mmol/L (3.5-5.1) 10/04/24 11:35 Chloride 93 mmol/L (98-107) L 10/04/24 11:35 Carbon Dioxide 23 mmol/L (22-29) 10/04/24 11:35 Anion Gap 16.5 (5-19) 10/04/24 11:35 BUN 24 mg/dL (8-23) H 10/04/24 11:35 Creatinine 0.8 mg/dL (0.5-0.9) 10/04/24 11:35 GFR Calculation Not Reportable 10/04/24 11:35 Glucose 126 mg/dL (65-115) H 10/04/24 11:35 Calculated Osmolality 272 mOsm/kg (285-295) L 10/04/24 11:35 Lactic Acid 1.8 mmol/L (0.5-2.2) 10/04/24 11:35 Calcium 9.4 mg/dL (8.5-10.5) 10/04/24 11:35 Total Bilirubin 0.5 mg/dL (0.15-1.2) 10/04/24 11:35 AST 15 U/L (0-32) 10/04/24 11:35 ALT 9 U/L (0-33) 10/04/24 11:35 Alkaline Phosphatase 80 U/L (35-105) 10/04/24 11:35 Creatine Kinase 49 U/L (26-192) 10/04/24 11:35 Troponin T Baseline 168 ng/L (0-10) H* 10/04/24 11:35 Total Protein 6.5 g/dL (6.6-8.7) L 10/04/24 11:35 Albumin 3.8 g/dL (3.5-5.2) 10/04/24 11:35 Globulin 2.7 g/dL (1.3-4.6) 10/04/24 11:35 Lipase 24 U/L (13-60) 10/04/24 11:35 Urine Color Dark yellow (Yellow) A 10/04/24 11:14 Urine Appearance Clear (CLEAR) 10/04/24 11:14 Urine pH 6.0 (5-7) 10/04/24 11:14 Ur Specific [place] 1.021 (1.005-1.030) 10/04/24 11:14 Urine Protein Trace (Negative) A 10/04/24 11:14 Urine Glucose (UA) Negative (Normal) 10/04/24 11:14 Urine Ketones Trace (Negative) 10/04/24 11:14 Urine Blood Negative (Negative) 10/04/24 11:14 Urine Nitrate Negative (Negative) 10/04/24 11:14 Urine Bilirubin Negative (Negative) 10/04/24 11:14 Urine Urobilinogen 1.0 mg/dL (Negative) 10/04/24 11:14 Ur Leukocyte Esterase Trace (Negative) A 10/04/24 11:14 Urine RBC 0-2 /hpf (0-2) 10/04/24 11:14 Urine WBC 6-10 /hpf (0-5) 10/04/24 11:14 Ur Squamous Epith Cells 0-5 /hpf (0-5) 10/04/24 11:14 Amorphous Sediment Not Reportable 10/04/24 11:14 Urine Bacteria None seen /hpf (NONE) 10/04/24 11:14 Hyaline Casts 9.07 /lpf 10/04/24 11:14 Ur Oval Fat Bodies 1+ /hpf 10/04/24 11:14 Discharge Plan Discharge Condition: Stable Prescriptions: No Action hydrocortisone [Proctosol HC] 2.5 % cream with perineal applicator 1 applic DE DAILY PRN (Reason: hemorrhoids) Qty: 30 1RF aspirin 81 mg Tablet,Delayed Release (Dr/Ec) 81 mg PO DAILY Qty: 30 0RF atorvastatin 40 mg Tablet 20 mg PO BEDTIME Qty: 60 0RF lisinopril 20 mg Tablet 20 mg PO BID Qty: 60 0RF acetaminophen 325 mg Tablet 325 mg PO Q4H PRN (Reason: Pain) magnesium hydroxide [Milk of Magnesia] 400 mg/5 mL Suspension 30 ml PO DAILY PRN (Reason: Constipation) bisacodyl [Dulcolax (bisacodyl)] 10 mg Suppository 10 mg DE DAILY PRN (Reason: Constipation) polyethylene glycol 3350 17 gram Powder In Packet 17 g peg-tube BID Qty: 30 4RF Culturelle 10 billion cell Capsule 1 cap PO DAILY divalproex 125 mg capsule, delayed rel sprinkle 250 mg PO BID Referrals: Roddy Paz FNP [Primary Care Provider] - Coding Level of Care Code ED Clinical Informaticist for Tahir Khalil
--- NOTE | 2024-10-04 10:48 | PC.PHAR ---
Pt is from [facility] [phone]
[2024-10-04 11:04] LABS: ABG PCO2 34.5 mmHg (35-45); ABG PH Result 7.45 (7.35-7.45); Alveolar-Arterial Oxygen Gradi 11.9 mmHg (5-10); Arterial Blood Gas Hematocrit 38.1 % (37-47); Base Excess ABG 0.6 mmol/L (-2.0-2.0); Blood Gas Operator Identificat MONRO; Blood Gas Sample Site Radial, right; Blood Gas Sample Type Arterial; Carboxyhemoglobin 1.1 %THgb (0.4-20.1); HCO3 ABG 24.2 mmol/L (22-26); HGB O2 Sat 92.3 % (95-100); Ionized Calcium Level - ABG 1.2 mmol/L (1.1-1.4); Methemoglobin 0.5 % (0.4-1.5); Oxygen Device NC; Oxygen Saturation ABG 93.8; PO2 ABG 66.4 mmHg (80.0-100.0); PO2 FiO2 Ratio Arterial Blood 237; Potassium Level - ABG 4.1 mmol/L (3.5-5.0); Total Hemoglobin 12.4 g/dL (12-16)
[2024-10-04 11:33] LABS: Bilirubin Urine Negative (Negative); Blood Urine Negative (Negative); Glucose Urine UA Negative (Normal); Ketones Urine Trace (Negative); Leukocyte Esterase Urine Trace (Negative); Nitrate Urine Negative (Negative); Protein Urine Trace (Negative); Specific Gravity, Urine 1.021 (1.005-1.030); Urine Appearance Clear (CLEAR); Urine Color Dark Yellow (Yellow)
[2024-10-04 11:42] LABS: Add Urine Microscopic? YES; Bacteria Urine None Seen /hpf; Hyaline Casts Urine 9.07 /lpf; RBC Urine 0-2 /hpf (0-2); Squamous Epithelial Cell Urine 0-5 /hpf (0-5)
[2024-10-04 11:47] LABS: Basophils % 0.2 %; Hematocrit 37.5 % (36-47); Lymphocytes # 0.6 10^3/uL (0.8-4.8); Lymphocytes % 4.5 %; Mean Corpuscular HGB Conc 33.1 g/dL (30-55); Mean Corpuscular Hemoglobin 31.8 pg (27-33); Mean Corpuscular Volume 96.2 fl (85-98); Mean Platelet Volume 9.9 fL (7.4-10.4); Monocytes # 1.3 10^3/uL (0.2-0.9); Monocytes % 9.7 %; Neutrophils # 11.68 10^3/uL (1.8-7.7); Neutrophils % 85.2 %; Nucleated Red Blood Cells % 0 %; Platelet Count 235 10^3/cmm (157-399)
[2024-10-04 12:06] LABS: Lactic Sepsis W/Reflex 1.8 mmol/L (0.5-2.2)
[2024-10-04 12:09] LABS: UA Slide Review UA Slide Review Perf
[2024-10-04 12:11] LABS: Add Urine Culture? No; Oval Fat Bodies Urine 1+ /hpf
[2024-10-04 12:12] LABS: Alanine Aminotransferase 9 U/L (0-33); Albumin Level 3.8 g/dL (3.5-5.2); Alkaline Phosphatase 80 U/L (35-105); Aspartate Amino Transferase 15 U/L (0-32); Blood Urea Nitrogen 24 mg/dL (8-23); Calcium 9.4 mg/dL (8.5-10.5); Carbon Dioxide 23 mmol/L (22-29); Chloride 93 mmol/L (98-107); Creatine Phosphokinase 49 U/L (26-192); Globulin 2.7 g/dL (1.3-4.6); Glucose 126 mg/dL (65-115); Lipase 24 U/L (13-60); Osmolality Calculated 272 mOsm/kg (285-295); Sodium 128 mmol/L (136-145); Total Bilirubin 0.5 mg/dL (0.15-1.2); Total Protein 6.5 g/dL (6.6-8.7)
[2024-10-04 12:16] LABS: Anion Gap 16.5 (5-19); Potassium 4.5 mmol/L (3.5-5.1)
--- NOTE | 2024-10-04 12:26 | XR_ITS ---
WS: [id number] Exam: XR chest 1V portable [id number] Date/Time of Exam: 10/04/2024 12:29 PM Reason For Exam: dyspnea Comparison 03/19/2024. Consolidated area in the LEFT lung base suggesting atelectasis and/or pneumonia. Chronic changes in t he RIGHT base. No pneumothorax. The lungs are fully inflated. Heart size top limits normal. The media stinum is normal in contour. Bony structures are intact. XR/XR chest 1V portable [id number] IMPRESSION: 1. Atelectasis and/or infiltrate in the LEFT lower lobe. 2. Chronic interstitial changes noted bilaterally.
--- NOTE | 2024-10-04 12:28 | ECG_ITS ---
[facility] Date: 2024-10-04 Pat Name: Geri Spencer Department: Room: Gender: Female Speech Language Pathology Assistant: : 1940 Requested By: Buck Heart Order Number: [id number] Dasha MD: Albert Rodriguez M.D. Measurements Intervals [place] Rate: 85 P: 42 ID: [id number] QRS: -48 QRSD: 81 T: 12 QT: 334 QTc: 398 Interpretive Statements SINUS RHYTHM LOW QRS VOLTAGE IN PRECORDIAL LEADS [QRS DEFLECTION < 1.0 mV IN CHEST LEADS] S1-S2-S3 PATTERN, CONSISTENT WITH PULMONARY DISEASE, RVH, OR NORMAL VARIANT PATTERN CONSISTENT WITH PULMONARY DISEASE LEFT ANTERIOR FASCICULAR BLOCK [QRS AXIS <= -45, QR IN I, RS IN II] Compared to ECG 10/04/2024 10:38:20 No significant changes Electronically Signed On 10-06-2024 22:19:24 RESTAURANT MGR by Albert Rodriguez M.D. [id number]
[2024-10-04 12:30] LABS: Troponin(5th) Baseline 168 ng/L (0-10)
--- NOTE | 2024-10-04 12:42 | CT_ITS ---
WS: [id number] CT CHEST ANGIOGRAPHY WITH REFORMATS HISTORY: Hypoxia TECHNIQUE: Contiguous axial images are obtained through the chest during arterial injection of intrav enous contrast. Images are reconstructed to evaluate the pulmonary arteries. MIP imaging also reviewe d. All CT scans at [facility] use at least one of these dose optimization techniques: automat ed exposure control; mA and/or kV adjustment per patient size (includes targeted exams where dose is matched to clinical indication); or iterative reconstruction. CONTRAST: Omnipaque 350; 100 mL IV. DLP: 371.65 mGy.cm COMPARISON: None available. Adequate opacification of the pulmonary arteries. No central pulmonary emboli. Normal size pulmonary artery. Moderate atherosclerosis aorta. Mild cardiac enlargement. No pericardial or pleural effusions . Mild hazy attenuation throughout both lungs from interstitial edema. No mass or pneumonia. Subsegment al atelectasis at the LEFT lung base. No mediastinal or hilar adenopathy. Patient is markedly kyphotic. Osteopenia. Mild anterior wedging of several midthoracic vertebral bodi es. Limited visualization of the upper abdominal structures. No adrenal mass identified. CT/CT angio chest PE protcl [id number] IMPRESSION: 1. No pulmonary embolism. 2. Mild CHF. 3. No pneumonia. Subsegmental atelectasis LEFT lung base. 4. No adenopathy.
--- NOTE | 2024-10-04 12:49 | ECG_ITS ---
[employer] Test Date: 2024-10-04 Pat Name: Geri Spencer Department: Room: Gender: Female Disease Case Manager: : 1940 Requested By: Buck Heart Order Number: [id number] Dasha MD: Albert Rodriguez M.D. Measurements Intervals [place] Rate: 83 P: 43 UT: 172 QRS: -44 QRSD: 85 T: 22 QT: 330 QTc: 389 Interpretive Statements SINUS RHYTHM LEFT AXIS DEVIATION [QRS AXIS < -30] LOW QRS VOLTAGE IN PRECORDIAL LEADS [QRS DEFLECTION < 1.0 mV IN CHEST LEADS] S1-S2-S3 PATTERN, CONSISTENT WITH PULMONARY DISEASE, RVH, OR NORMAL VARIANT PATTERN CONSISTENT WITH PULMONARY DISEASE MODERATE VOLTAGE CRITERIA FOR LVH, CONSIDER NORMAL VARIANT [MEETS CRITERIA IN ONE OF: R(aVL), S(V1), R(V5), R(V5/V6)+S(V1)] NONSPECIFIC T-WAVE ABNORMALITY Compared to ECG 10/04/2024 12:27:18 Left-axis deviation now present T-wave abnormality now present Left anterior fascicular block no longer present Electronically Signed On 10-06-2024 22:01:46 HIGH SCHOOL LEARNING SUPPORT TEACHER by Albert Rodriguez M.D. [email or web address]
[2024-10-04] MEDS: cefTRIAXone 1,000 mg SDV 1000 MG IVP (12:58)
[2024-10-04] MEDS: heparin 5,000 unit/mL INJ 1 mL IVP (12:59)
[2024-10-04] MEDS: heparin drip 25,000 UNIT/500 ML PREMIX 24 UNIT IV (13:09)
[2024-10-04 14:10] LABS: Troponin 5 2HR Delta -10.3 ABS# (0-10)
[2024-10-04 14:12] LABS: Troponin 5 2HR 157.7 ng/L (0-10)
--- NOTE | 2024-10-04 14:34 | USCV_ITS ---
Geri Spencer Age: 84 Gender: F : 1940 Exam Date: 10/04/2024 15:17 Ordering Phys: Crispin Helms MD Technologist: Exam Location: [facility] [place] Indication: chf BP: 130 / 74 HR: 79 Rhythm: Sinus Technical Quality: Adequate MEASUREMENTS (Male / Female) Normal Values 2D ECHO LV Diastolic Diameter PLAX 4.4 cm 4.2 - 5.9 / 3.9 - 5.3 cm IVS Diastolic Thickness 1.3 cm 0.6 - 1.0 / 0.6 - 0.9 cm IVS Systolic Thickness 1.1 cm LVPW Diastolic Thickness 1.3 cm 0.6 - 1.0 / 0.6 - 0.9 cm LVPW Systolic Thickness 1.4 cm LVOT Diameter 2.0 cm LV Ejection Fraction 2D Teich 69.6 % LV Ejection Fraction MOD 4C 60.0 % LV Ejection Fraction MOD 2C 52.7 % LV Ejection Fraction 2C AL 52.5 % LA Diameter 4.4 cm RA Systolic Volume 4C AL 32.1 ml RA Systolic Volume 4C MOD 28.8 ml Aorta at Sinotubular Diameter 2.8 cm IVC Diameter 1.1 cm M-MODE LA Ao Ratio MM 1.0 AV Cusp Separation MM 1.9 cm DOPPLER AV Peak Velocity 151.0 cm/s LVOT Peak Velocity 115.0 cm/s AV Area Cont Eq vti 3.7 cm squared AV Area Cont Eq pk 2.4 cm squared MV Peak Velocity 124.0 cm/s MV Area PHT 4.5 cm squared Mitral E to A Ratio 0.6 TV Peak Velocity 270.0 cm/s TR Peak Velocity 281.0 cm/s TR Peak Gradient 31.6 mmHg TV Peak E Velocity 87.0 cm/s PV Peak Velocity 95.0 cm/s FINDINGS Left Ventricle Left ventricle is normal in size. LV systolic function is normal with EF of 55 to 60%. No regional wall motion abnormalities are seen. Grade 1 diastolic dysfunction Right Ventricle Normal in size and function Right Atrium Normal in size Left Atrium Normal in size Mitral Valve Structurally normal mitral valve. Mild mitral regurgitation. Aortic Valve Aortic valve is thickened and calcified. Echogenic structure/thickening seen on the right coronary leaflet. No significant stenosis or regurgitation. Tricuspid Valve Mild tricuspid regurgitation. Pulmonary artery systolic pressure is normal. Pulmonic Valve Not well visualized Pericardium Normal Aorta Normal in size IVC Appears to be normal CONCLUSIONS LV systolic function is normal with EF 55 to 60%. Grade 1 diastolic dysfunction. Mild mitral regurgitation. Echogenic structure/thickening seen on right coronary leaflet of aortic valve. Mild tricuspid regurgitation No comparison studies are available. Albert Rodriguez MD (Electronically Signed) Final Date: 04 October 2024 18:14 S
--- NOTE | 2024-10-04 14:35 | PM.HP ---
Providers/Chief Complaint Admitting Physician: Crispin Helms MD Primary Care Provider: Roddy Paz Chief Complaint: AMS, Low BP History of Present Illness Geri Spencer is a 84 year old female with a past medical history significant for 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 [facility] she was recently transitioned over from PEG tube feeds to pur?ed diet within last 6 months. Patient was initiated tried on a more regular diet but was not able to tolerate hence was done back down to pur?ed diet recently. Today morning after breakfast she had an episode of choking and she coughed up her food after which she had an episode of bradycardia and hypoxia and she was sent to the ER. As per the nursing staff at baseline she is dependent for her ADLs. In the ER she was found to have oxygen requirement of 2 L which seems to be her baseline, heart rate running in 80s with blood pressure of 1 20-1 30 systolics. Patient is at baseline nonverbal is not able to localize any area of pain or complaints. Blood work showed leukocytosis, mild hyponatremia, troponin at baseline up to 168 with a delta of -10 in 2 hours. Review of Systems General: Reports: ROS unobtainable due to mental status Medications/Allergies Home Medications Medication Instructions Recorded Confirmed Last Taken Type hydrocortisone 2.5 % topical cream 1 applic LA DAILY PRN hemorrhoids 11/18/23 10/04/24 Unknown Rx with perineal applicator #30 grams (Proctosol HC) aspirin 81 mg tablet,delayed 81 mg PO DAILY #30 tabs 02/14/24 10/04/24 10/04/24 Rx release atorvastatin 40 mg tablet 20 mg (1/2 x 40 mg) PO BEDTIME #60 02/14/24 10/04/24 10/03/24 Rx tabs lisinopril 20 mg tablet 20 mg PO BID #60 tabs 02/14/24 10/04/24 10/04/24 Rx acetaminophen 325 mg tablet 325 mg PO Q4H PRN Pain 03/20/24 10/04/24 Unknown History bisacodyl 10 mg rectal suppository 10 mg LA DAILY PRN Constipation 03/20/24 10/04/24 Unknown History (Dulcolax (bisacodyl)) magnesium hydroxide 400 mg/5 mL 30 ml PO DAILY PRN Constipation 03/20/24 10/04/24 Unknown History oral suspension (Milk of Magnesia) polyethylene glycol 3350 17 gram 17 g peg-tube BID #30 ea 03/21/24 10/04/24 10/04/24 Rx oral powder packet Lactobacillus rhamnosus GG 10 1 cap PO DAILY 10/04/24 10/04/24 10/04/24 History billion cell capsule (Culturelle) divalproex 125 mg capsule,delayed 250 mg PO BID 10/04/24 10/04/24 10/04/24 History release sprinkle Allergies Allergy/AdvReac Type Severity Reaction Status Date / Time No Known Allergies Allergy Verified 12/28/23 09:35 PFSH Acute PFSH: Medical History (Updated 10/04/24 @ 15:15 by Crispin Helms MD) Acute kidney injury Abdominal pain Large bowel obstruction Fecal impaction in rectum Septic shock 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 Laceration Abrasion of arm, left Hard of hearing Macular degeneration of left eye Bilateral bunions Hammertoe, bilateral Onychodystrophy Toenail fungus Basal cell carcinoma Fall Hypertension Surgical History (Updated 10/04/24 @ 15:06 by Crispin Helms MD) S/P percutaneous endoscopic gastrostomy (PEG) tube placement Hx of eye surgery Family History Daughter Colon cancer Other Cancer Social History Smoking and tobacco/nicotine status: never used tobacco/nicotine Alcohol intake: never Substance/Drug Use: never Caregiver/support person: No Lives independently: No Household members: family Sexually active: Yes Do you think of yourself as: Straight/Heterosexual Current gender identity: Female Vitals/I&O/Wt Last Vital Signs Temp 99.3 F 10/04/24 10:19 Pulse 81 10/04/24 14:00 Resp 24 H 10/04/24 14:00 BP 143/86 10/04/24 14:00 Pulse Ox 95 10/04/24 14:00 O2 Del Method Nasal Cannula 10/04/24 10:19 O2 Flow Rate 2 10/04/24 10:19 Weight last 48 hrs Weight 84.368 kg Physical Exam Narrative: General: No acute distress, awake, nonverbal, not following simple directions HEENT: PERRLA, pupils bilaterally equal and reactive Chest: Bilateral bronchial breath sounds with occasional rhonchi more so on the right side CVS: S1-S2 regular, no murmurs, no tachycardia, no gallops, no rubs Abdomen: Soft, nontender, no organomegaly, bowel sounds present Neuro: No focal deficits, no facial deformity, AO x3, power 5/5 in all limbs Data 10/04/24 11:35 10/04/24 11:35 A&P Assessment and plan (1) Aspiration into airway: (2) Elevated troponin: (3) Leukocytosis: (4) Hyponatremia: (5) Hypoxia: (6) Nonverbal: (7) S/P percutaneous endoscopic gastrostomy (PEG) tube placement: (8) History of stroke with residual deficit: Plan 84-year-old female with history of. Residual deficits, nonverbal at baseline who was recently transitioning last 6 months from PEG tube feeds to oral intake was sent into the ER today after having episodes of choking earlier today morning followed by bradycardia and hypotension found to have elevated troponin, hyponatremia and leukocytosis in the ER. Aspiration: With mild leukocytosis. Cannot rule out aspiration pneumonia. Check sputum culture, respiratory viral panel, bacterial antigen. For now start patient on IV vancomycin and Zosyn. Has history of MRSA swab positive in the past. CTA ordered in the ER. Will follow-up with results. Oxygen supplementation keeping saturation over 90%. Keep NPO. Speech evaluation. Will restart diet orally versus PEG tube depending on the speech evaluation. Leukocytosis: Could be reactionary to the stress event today morning versus possible pneumonia given episode of [facility]. Antibiotic as above. Follow-up sputum culture, blood culture, UA. Elevated troponin: Baseline troponin up to 168. Concerning for non-ST elevation ME. Patient is nonverbal and cannot confirm about chest pain. Cycle troponin, check echocardiogram. For now continue with heparin drip. Start on aspirin, statin. Add metoprolol 25 mg twice daily. Discussed in detail with patient's DPOA/son over the phone. Discussed options of treatment for a possible ME with Lexiscan stress test and possibly need of cardiac angiogram with or without PCI versus medical management. We discussed with angiogram if needed she would be at the risk of contrast-induced nephropathy versus there is a risk of recurrent MIs, not complete resolution of ME with medical therapy which can also lead to worsening EF. After the patient son she is usually nonverbal, is usually bedbound and would not want to undergo dialysis hence would want to hold off on any invasive procedure and would continue with medical therapy. Hypoxia: Seems to be at her baseline oxygen supplementation. Continue to monitor. Hyponatremia: Could be in setting of dehydration. Check urine lites. Strict input charting, daily weights. Blanco catheterization Start on gentle IV hydration with normal saline at 75 cc/h. Check every 8 hours for now. CODE STATUS: DNR/DNI in the past. Confirm with the son. N.p.o. Heparin drip will be sufficient for DVT prophylaxis Protonix for PUD prophylaxis Attestations Medical Necessity Statement*: Admission for more than 2 midnights for management of elevated troponin, leukocytosis, hypoxia in setting of aspiration while [id number] ME, aspiration pneumonia she is ruled out, hyponatremia Diagnoses Aspiration into airway T17.908A Elevated troponin R79.89 Leukocytosis D72.829 Hyponatremia E87.1 Hypoxia R09.02 Nonverbal R47.01 S/P percutaneous endoscopic gastrostomy (PEG) tube placement Z93.1 History of stroke with residual deficit I69.30
[2024-10-04] MEDS: iohexol 350 mg/mL 500 mL Btl (per mL) IV (14:59)
[2024-10-04 15:05] LABS: Iron 17 ug/dL (37-145); Percent Saturation 5.9 % (20-50); Thyroid Stimulating Hormone 1.86 uIU/mL (0.27-4.20); Total Iron Binding Capacity 285 mcg/dl; Unsaturated Iron Binding 268 ug/dL (112-347); Vitamin B12 419 pg/mL (232-1245)
[2024-10-04 15:30] LABS: Procalcitonin 0.07 ng/mL (0-0.5)
--- NOTE | 2024-10-04 15:32 | PHA.VACGOAL ---
Vancomycin Goal - Goal Vancomycin Goal:: 15-20 mg/L Vancomycin Indication:: Pneumonia (Patient has a history of MRSA in the past) - Therapy Current therapy:: Pip/Tazo Day of therpy:: Day 1 of [] Actual body weight (kg): 186 lb - Data Labs: WBC 13.70 10^3/uL (3.29-11.43) H 10/04/24 11:35 RBC 3.90 10^6/uL (3.85-5.65) 10/04/24 11:35 Hgb 12.40 g/dL (11.27-16.99) 10/04/24 11:35 Hct 37.5 % (36-47) 10/04/24 11:35 MCV 96.2 fl (85-98) 10/04/24 11:35 MCH 31.8 pg (27-33) 10/04/24 11:35 MCHC 33.1 g/dL (30-55) 10/04/24 11:35 RDW 13.0 % (12.1-15.1) 10/04/24 11:35 Sodium 128 mmol/L (136-145) L 10/04/24 11:35 Potassium 4.5 mmol/L (3.5-5.1) 10/04/24 11:35 Chloride 93 mmol/L (98-107) L 10/04/24 11:35 Carbon Dioxide 23 mmol/L (22-29) 10/04/24 11:35 Anion Gap 16.5 (5-19) 10/04/24 11:35 BUN 24 mg/dL (8-23) H 10/04/24 11:35 Creatinine 0.8 mg/dL (0.5-0.9) 10/04/24 11:35 GFR Calculation Not Reportable 10/04/24 11:35 Last dialysis session:: N/A Treatment plan:: new consult Regimen:: LOASING DOSE OF 2500 MG BASED ON DOSING PROTOCOL MAINTENANCE DOSE OF 1000 MG Q12H Follow up:: WILL CONTINUE TO MONITOR AND FOLLOW UP DAILY
[2024-10-04 15:38] LABS: Potassium, Radom Urine 88 mmol/L; Urine Random Chloride 65 mmol/L; Urine Random Sodium 62 mmol/L
[2024-10-04 17:54] LABS: Adenovirus Not Detected (NOT DETECT); Chlamydia Pneumoniae Not Detected (NOT DETECT); Coronavirus 229E,HKU1,NL63,OC4 Not Detected (NOT DETECT); Human Metapneumovirus Not Detected (NOT DETECT); Human Rhinovirus/Enterovirus Not Detected (NOT DETECT); Influenza A Not Detected (NOT DETECT); Influenza A H1 Not Detected (NOT DETECT); Influenza A H1-2009 Not Detected (NOT DETECT); Influenza A H3 Not Detected (NOT DETECT); Influenza B Not Detected (NOT DETECT); Mycoplasma Pneumoniae Not Detected (NOT DETECT); Parainfluenza Virus Type 1 Not Detected (NOT DETECT); Parainfluenza Virus Type 2 Not Detected (NOT DETECT); Parainfluenza Virus Type 3 Not Detected (NOT DETECT); Parainfluenza Virus Type 4 Not Detected (NOT DETECT); Respiratory Syncytial Virus B Not Detected (NOT DETECT); SARS-COV-2 Not Detected (NOT DETECT)
--- NOTE | 2024-10-04 18:16 | ECG_ITS ---
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 Measurements Intervals [place] Rate: 73 P: 23 PA: 161 QRS: -36 QRSD: 90 T: 23 QT: 344 QTc: 380 Interpretive Statements SINUS RHYTHM LEFT AXIS DEVIATION [QRS AXIS < -30] LOW QRS VOLTAGE IN PRECORDIAL LEADS [QRS DEFLECTION < 1.0 mV IN CHEST LEADS] PATTERN CONSISTENT WITH PULMONARY DISEASE VOLTAGE CRITERIA FOR LVH [MEETS CRITERIA IN ONE OF: R(aVL), S(V1), R(V5), R(V5/V6)+S(V1)] Compared to ECG 10/04/2024 12:49:59 Right ventricular hypertrophy no longer present T-wave abnormality no longer present Electronically Signed On 10-06-2024 22:15:17 CLOTH PRINTER by Albert Rodriguez M.D. [email or web address]
--- NOTE | 2024-10-04 18:35 | PC.NURSE ---
unable to assess pt's pain. pt is non verbal due to stroke. make verbal sound when moved or applied tourniquet.
[2024-10-04 18:54] LABS: Respiratory Syncytial Virus A Detected (NOT DETECT)
[2024-10-04] MEDS: pantoprazole 40 mg SDV IVP (19:06)
[2024-10-04] MEDS: piperacillin-tazobactam 3.375 GM in sodium chloride 0.9% (plus) 50 ML IV (19:07)
[2024-10-04] MEDS: lisinopril 20 mg Tablet PEG-TUBE (19:08)
[2024-10-04 19:13] LABS: Troponin 5 6HR Delta -21.5 ng/L (0-12)
[2024-10-04 19:14] LABS: Troponin 5 6HR 146.5 ng/L (0-10)
--- NOTE | 2024-10-04 20:02 | PC.NURSE ---
Addendum entered by Nathan Hyde RN 10/04/24 20:06: PEG tube noted on mid upper abdomen. Original Note: Received pt from ER Pt is non verbal due to stroke, left sided paralysis noted. no open wounds. call light provided. bed alarm on. lindo inserted.
[2024-10-04] MEDS: divalproex Sprinkles 125 mg Capsule 250 MG PEG-TUBE (20:04)
[2024-10-04] MEDS: atorvastatin 40 mg Tablet 20 MG PEG-TUBE (20:04)
[2024-10-04 21:32] LABS: Partial Thromboplastin Time > 250.0 SECONDS (23.9-36.7)
[2024-10-04 23:57] LABS: Anion Gap 14.9 (5-19); Blood Urea Nitrogen 23 mg/dL (8-23); Calcium 8.7 mg/dL (8.5-10.5); Carbon Dioxide 22 mmol/L (22-29); Chloride 95 mmol/L (98-107); Creatinine Clr Calc Pharmacy 54.0281; Glucose 98 mg/dL (65-115); Osmolality Calculated 270 mOsm/kg (285-295); Potassium 3.9 mmol/L (3.5-5.1); Sodium 128 mmol/L (136-145)
[2024-10-05] VITALS (13 sets, daily range): BP systolic 99–138; BP diastolic 64–99; PULSE 70–93; RESP 16–24; TEMP 36.6–37.1; O2SAT 92–98; BMI 31.9
--- NOTE | 2024-10-05 00:33 | PC.NURSE ---
contacted at 2129 about pTT being critical at greater than 250, MD gave orders to turn off heparin drip for 4 hours and resume at 2mLs less than current rate, resuming rate will be 22mLs an hour at 0130
[2024-10-05] MEDS: piperacillin-tazobactam 3.375 GM in sodium chloride 0.9% (plus) 50 ML IV ×3 (02:13→18:26)
[2024-10-05] MEDS: VANCOMYCIN ADD-Vantage 1,000 MG in 0.9% NaCl ADD-Vantage 250 ML 250 MG IV ×2 (06:24→18:27)
[2024-10-05 08:58] LABS: Basophils % 0.4 %; Eosinophils # 0.1 10^3/uL (0.0-0.8); Eosinophils % 1.4 %; Hematocrit 34.4 % (36-47); Lymphocytes # 0.6 10^3/uL (0.8-4.8); Lymphocytes % 5.8 %; Mean Corpuscular HGB Conc 33.7 g/dL (30-55); Mean Corpuscular Hemoglobin 32.3 pg (27-33); Mean Corpuscular Volume 95.8 fl (85-98); Mean Platelet Volume 10.8 fL (7.4-10.4); Monocytes % 10.2 %; Neutrophils # 7.91 10^3/uL (1.8-7.7); Neutrophils % 81.8 %; Nucleated Red Blood Cells % 0 %; Platelet Count 181 10^3/cmm (157-399); Red Blood Count 3.59 10^6/uL (3.85-5.65); Red Cell Distribution Width 13.1 % (12.1-15.1); White Blood Count 9.68 10^3/uL (3.29-11.43)
[2024-10-05 09:22] LABS: Alanine Aminotransferase 8 U/L (0-33); Albumin Level 3.3 g/dL (3.5-5.2); Alkaline Phosphatase 72 U/L (35-105); Aspartate Amino Transferase 15 U/L (0-32); Blood Urea Nitrogen 23 mg/dL (8-23); Calcium 8.7 mg/dL (8.5-10.5); Carbon Dioxide 21 mmol/L (22-29); Chloride 98 mmol/L (98-107); Creatinine Clr Calc Pharmacy 54.0281; Globulin 2.3 g/dL (1.3-4.6); Glucose 96 mg/dL (65-115); Magnesium 1.9 mg/dL (1.7-2.3); Osmolality Calculated 278 mOsm/kg (285-295); Phosphorus 4.1 mg/dL (2.5-4.5); Sodium 132 mmol/L (136-145); Total Bilirubin 0.4 mg/dL (0.15-1.2); Total Protein 5.6 g/dL (6.6-8.7)
[2024-10-05 09:23] LABS: Anion Gap 17.3 (5-19); Potassium 4.3 mmol/L (3.5-5.1)
[2024-10-05 09:30] LABS: Chol HDL Ratio 2.58 mg/dL (0.0-4.40); Cholesterol 98 mg/dL (0-200); HDL Cholesterol 38 mg/dL (60-100); LDL Cholesterol Calculated 39 mg/dL (50-129); LDL HDL Ratio 1.03 RATIO (0.00-3.22); Triglycerides 106 mg/dL (0-150)
[2024-10-05 09:32] LABS: Partial Thromboplastin Time 192.5 SECONDS (23.9-36.7)
[2024-10-05 09:33] LABS: Procalcitonin 0.08 ng/mL (0-0.5)
[2024-10-05 09:38] LABS: Estmated Average Glucose 111; Hemoglobin A1C 5.5 % (4.0-6.0)
[2024-10-05 09:38] LABS: Bilirubin Urine Negative (Negative); Blood Urine 3+ (Negative); Glucose Urine UA Negative (Normal); Ketones Urine Negative (Negative); Leukocyte Esterase Urine 2+ (Negative); Nitrate Urine Negative (Negative); Protein Urine 2+ (Negative); Urine Appearance Turbid (CLEAR)
[2024-10-05 09:40] LABS: Add Urine Microscopic? YES; Bacteria Urine Trace /hpf; Hyaline Casts Urine 9.01 /lpf; RBC Urine >100 /hpf (0-2); WBC Urine 51-100 /hpf (0-5)
[2024-10-05 09:46] LABS: Folate Level 5.6 ng/mL (4.8-37.3)
[2024-10-05] MEDS: ipratropium-albuterol 3 mL Neb INHALATION ×3 (09:46→21:11)
[2024-10-05 09:52] LABS: Potassium, Radom Urine 41 mmol/L; Urine Random Chloride 29 mmol/L; Urine Random Sodium 71 mmol/L
[2024-10-05 09:56] LABS: Specific Gravity, Urine 1.037 (1.005-1.030); Urine Color Red (Yellow)
[2024-10-05 09:57] LABS: Mucus Urine TRACE /hpf; UA Slide Review UA Slide Review Perf
[2024-10-05 09:58] LABS: Add Urine Culture? Yes
[2024-10-05] MEDS: aspirin 81 mg EC Tablet XX (10:21)
[2024-10-05] MEDS: lisinopril 20 mg Tablet PEG-TUBE ×2 (10:21→18:28)
[2024-10-05] MEDS: methylPREDNISolone sod succ 40 mg/mL INJ IVP ×2 (10:21→18:27)
[2024-10-05] MEDS: divalproex Sprinkles 125 mg Capsule 250 MG PEG-TUBE ×2 (10:21→18:28)
--- NOTE | 2024-10-05 12:23 | P.PN_ITS ---
Subjective 2 Subjective: No acute events overnight. Patient has remained hemodynamically stable and afebrile. Upon examination patient seen with oxygen not in her nose saturating 86%. Patient does not appear out of breath. Remains nonverbal. Going up to 95% on 2 L immediately when placed back on oxygen. Having more cough today. Vitals/I&O/Wt Last Vital Signs Temp 97.9 F 10/05/24 07:40 Pulse 77 10/05/24 09:49 Resp 18 10/05/24 09:49 BP 106/77 10/05/24 07:40 Pulse Ox 95 10/05/24 09:49 O2 Del Method Nasal Cannula 10/05/24 09:49 O2 Flow Rate 2 10/05/24 09:49 10/04/24 10/05/24 10/05/24 22:59 06:59 14:59 Intake Total 1053.6 / 1053.6 100 / 1153.6 546.4 / 546.4 Output Total 500 / 500 550 / 1050 Balance 553.6 / 553.6 -450 / 103.6 546.4 / 546.4 Weight last 48 hrs Weight 84.368 kg Weight 84.368 kg Weight 84.368 kg Physical Exam 2 Narrative: General: No acute distress, awake, nonverbal, not following simple directions HEENT: PERRLA, pupils bilaterally equal and reactive Chest: Bilateral bronchial breath sounds with occasional rhonchi more so on the right side CVS: S1-S2 regular, no murmurs, no tachycardia, no gallops, no rubs Abdomen: Soft, nontender, no organomegaly, bowel sounds present Neuro: No focal deficits, no facial deformity, AO x3, power 5/5 in all limbs Urinary Catheter Management: Blanco: Cath Placed During This Visit: yes Reason for Continuing Indwelling Catheter: Accurate Measurement of Urinary Output in Critically Ill Patients Urinary Catheter Date of Insertion: 10/04/24 Urinary Catheter Time of Insertion: 20:00 Data 10/05/24 08:39 10/05/24 08:39 Micro: Microbiology 10/04/24 18:36 Blood Culture - Preliminary Blood SPECIMEN COLLECTED 10/04/24 18:32 Blood Culture - Preliminary Blood SPECIMEN COLLECTED A&P Assessment and plan (1) Hypoxia: (2) Aspiration into airway: (3) RSV (acute bronchiolitis due to respiratory syncytial virus): (4) Elevated troponin: (5) Leukocytosis: (6) Hyponatremia: (7) Nonverbal: (8) S/P percutaneous endoscopic gastrostomy (PEG) tube placement: (9) History of stroke with residual deficit: Plan 84-year-old female with history of. Residual deficits, nonverbal at baseline who was recently transitioning last 6 months from PEG tube feeds to oral intake was sent into the ER today after having episodes of choking earlier today morning followed by bradycardia and hypotension found to have elevated troponin, hyponatremia and leukocytosis in the ER. Hypoxia: On room air at baseline. Currently requiring 1 to 2 L of oxygen supplementation. Continue to monitor. In setting of possible aspiration pneumonia along with RSV. Start on nebulization treatment with DuoNeb every 6 hour, Pulmicort twice daily. Start on Solu-Medrol 40 mg every 8 hours. Supportive treatment with aggressive pulmonary toilet. Aspiration: With mild leukocytosis. Cannot rule out aspiration pneumonia. Respiratory viral panel positive for rhinovirus. Bacterial antigen negative. MRSA swab positive in the past. Continue with IV vancomycin and Zosyn. Keep NPO. Advance diet as per speech evaluation. Will check modified barium swallow. If remains n.p.o. for more than 24 more hours we will start on PEG tube feeds. Follow-up sputum culture, blood culture. Elevated troponin: Most likely in setting of demand ischemia. Negative delta trend. Repeat troponin today. Echocardiogram done Shows EF of 55 to 60%, grade 1 diastolic function or mild MR with mild thickening of right coronary cusp of aortic valve. Discontinue heparin drip for now. Low concerns for non-ST elevation IL. Continue with aspirin, statin, metoprolol 12.5 mg twice daily. Discussed in detail with patient's DPOA/son over the phone. Discussed options of treatment for a possible IL with Lexiscan stress test and possibly need of cardiac angiogram with or without PCI versus medical management. We discussed with angiogram if needed she would be at the risk of contrast-induced nephropathy versus there is a risk of recurrent MIs, not complete resolution of IL with medical therapy which can also lead to worsening EF. After the patient son she is usually nonverbal, is usually bedbound and would not want to undergo dialysis hence would want to hold off on any invasive procedure and would continue with medical therapy. Hypertension: Goal blood pressure less than 140/90 mmHg. Continue with home dose of lisinopril, added metoprolol. Hyponatremia: Resolving. Repeat UA and urine lites. Strict input charting, daily weights. Blanco catheterization Check daily for now. Hold off on IV fluids. CODE STATUS: DNR/DNI in the past. Confirm with the son. N.p.o. Heparin drip will be sufficient for DVT prophylaxis Protonix for PUD prophylaxis Attestations 2 Medical Necessity Statement*: Requires further hospitalization for management of hypoxia in setting of RSV infection, aspiration pneumonitis in a patient with history of stroke on PEG tube feeds in the past Diagnoses Hypoxia R09.02 Aspiration into airway T17.908A RSV (acute bronchiolitis due to respiratory syncytial virus) J21.0 Elevated troponin R79.89 Leukocytosis D72.829 Hyponatremia E87.1 Nonverbal R47.01 S/P percutaneous endoscopic gastrostomy (PEG) tube placement Z93.1 History of stroke with residual deficit I69.30
[2024-10-05 13:31] LABS: Troponin T (5th) Once 124 ng/L (0-10)
[2024-10-05] MEDS: pantoprazole 40 mg SDV IVP (18:27)
[2024-10-05] MEDS: metoprolol tartrate 25 mg Tablet 12.5 MG PO (20:10)
[2024-10-05] MEDS: atorvastatin 40 mg Tablet 20 MG PEG-TUBE (20:10)
[2024-10-05] MEDS: budesonide 0.5 mg/2 mL Neb INHALATION (21:11)
[2024-10-06] VITALS (12 sets, daily range): BP systolic 67–151; BP diastolic 43–89; PULSE 61–92; RESP 15–25; TEMP 36.3–36.8; O2SAT 90–98
[2024-10-06] MEDS: ipratropium-albuterol 3 mL Neb INHALATION ×4 (02:08→22:49)
[2024-10-06] MEDS: methylPREDNISolone sod succ 40 mg/mL INJ IVP ×3 (02:53→17:22)
[2024-10-06] MEDS: piperacillin-tazobactam 3.375 GM in sodium chloride 0.9% (plus) 50 ML IV ×3 (02:54→17:22)
[2024-10-06 03:57] LABS: Basophils % 0.1 %; Hematocrit 35.5 % (36-47); Lymphocytes # 0.4 10^3/uL (0.8-4.8); Lymphocytes % 5.5 %; Mean Corpuscular HGB Conc 32.7 g/dL (30-55); Mean Corpuscular Hemoglobin 31.8 pg (27-33); Mean Corpuscular Volume 97.3 fl (85-98); Mean Platelet Volume 10.1 fL (7.4-10.4); Monocytes # 0.3 10^3/uL (0.2-0.9); Monocytes % 3.5 %; Neutrophils # 7.29 10^3/uL (1.8-7.7); Neutrophils % 90.8 %; Nucleated Red Blood Cells % 0 %; Platelet Count 194 10^3/cmm (157-399); Red Blood Count 3.65 10^6/uL (3.85-5.65); Red Cell Distribution Width 12.7 % (12.1-15.1); White Blood Count 8.03 10^3/uL (3.29-11.43)
[2024-10-06 04:57] LABS: Alanine Aminotransferase 9 U/L (0-33); Albumin Level 3.3 g/dL (3.5-5.2); Alkaline Phosphatase 68 U/L (35-105); Anion Gap 16.9 (5-19); Aspartate Amino Transferase 13 U/L (0-32); Blood Urea Nitrogen 28 mg/dL (8-23); Carbon Dioxide 20 mmol/L (22-29); Chloride 99 mmol/L (98-107); Creatinine Clr Calc Pharmacy 43.2225; Globulin 3.1 g/dL (1.3-4.6); Glucose 143 mg/dL (65-115); Osmolality Calculated 282 mOsm/kg (285-295); Potassium 3.9 mmol/L (3.5-5.1); Sodium 132 mmol/L (136-145); Total Bilirubin 0.3 mg/dL (0.15-1.2); Total Protein 6.4 g/dL (6.6-8.7)
[2024-10-06] MEDS: VANCOMYCIN ADD-Vantage 1,000 MG in 0.9% NaCl ADD-Vantage 250 ML 250 MG IV (06:04)
[2024-10-06] MEDS: lisinopril 20 mg Tablet PEG-TUBE ×2 (08:12→17:23)
[2024-10-06] MEDS: aspirin 81 mg EC Tablet XX (08:12)
[2024-10-06] MEDS: metoprolol tartrate 25 mg Tablet 12.5 MG PO ×2 (08:12→21:30)
[2024-10-06] MEDS: divalproex Sprinkles 125 mg Capsule 250 MG PEG-TUBE ×2 (08:13→17:23)
--- NOTE | 2024-10-06 08:43 | PC.SOCIAL ---
IMM Update pg 2 of IMM Updated and reviewed w/ patients daugther Geri via phone. Copy left @ bedside and copy dated, initialed and placed in chart.
[2024-10-06] MEDS: budesonide 0.5 mg/2 mL Neb INHALATION ×2 (08:55→22:49)
--- NOTE | 2024-10-06 08:58 | PC.CHAP ---
Pastoral Care Encounter/Spiritual Assessment Type of Contact [] Declined customer contact representative visit [] Patient/Family/Request visit [] Outpatient visit [] Follow-up visit [] Physician referral [] Code/Alert [] Routine visit [] Staff referral [] Actively dying [] Patient sleeping [] Family support [] [] Out of room [] Palliative care [] [] Receiving care in room [] Pre-surgical visit [] Trauma [] Long length of stay [] ICU visit [x] Other:Contact precautions. No visit. Relational/Emotional Strength [] Patient feels connected with others/family/visitors/staff [] Distress [] Loneliness/isolation [] Abandonment Spirituality of Patient [] Person of [place]af[place] [] Attends Confucianist of their [place] [] Believes in Prayer [] Reads Bible or Buddhism materials [] There are Spiritual issues to be addressed [employer] Interventions [] Prayer [] Active listening [] Non-anxious presence [] Spiritual/emotional support [] Crisis/trauma care [] Spiritual counseling [] Bereavement support [] Provided bereavement packet [] Provided Bible/devotional materials [] Provided toy/stuffed animal, coloring book to patient or family member [] Provided Communion [] Anointing/[place] [] Salvation [] Completed spiritual assessment [] Other: Impact on Illness or Injury [] Angry [] Fearful [] Anxious [] Often cries [] Exhaustion [] Unable to work [] Unable to attend mu-ism [] Unable to walk/stand [] Unable to read [] Unable to drive [] Unable to eat/drink [] Unable to sleep [] Unable to be with family [] Patient intubated [] Other: Summary Time spent with patient
--- NOTE | 2024-10-06 11:00 | FL_ITS ---
WS: [id number] Exam: FL barium swallow modifd 61051 Date/Time of Exam: 10/06/2024 11:00 AM Reason For Exam: Oropharyngeal dysphagia Fluoroscopy time: 3min [id number] minutes # of spot films: 0 Modified barium swallow test was performed in conjunction with the speech therapy service. There was some alteration in oropharyngeal phase of swallowing specifically with the patient elevatin g the tongue to the hard palate to initiate swallowing. Mild penetration into the laryngeal inlet was noted when the patient ingested thin liquid and honey consistency barium foodstuffs. The patient annmarie erated pudding consistency without aspiration or penetration. The patient swallowed a barium tablet w ithout difficulty however the tablet was retrained in the mid esophagus due to esophageal hypomotilit y. The tablet was propelled into the stomach with additional swallows of thin liquid. No aspiration w as identified. FL/FL barium swallow modifd [id number] IMPRESSION: 1. The patient experienced penetration into the laryngeal inlet when ingesting thin liquid and honey consistency barium foodstuffs. No aspiration was noted. 2. Mid esophageal hypomotility when swallowing a barium tablet. See above discu ssion. A separate report with recommendations will follow from the speech therapy serv ice.
--- NOTE | 2024-10-06 11:35 | PC.NUTR ---
Pt was on Jevity 1.5 @ 40mls/hr back in January 2024 per [facility]. If PEG tube feeds restarted, recommend Jevity 1.5 beginning @15mls/hr and increasing 10mls Q8H as tolerated until goal rate of 35mls/hr reached with [facility]WF 100mls Q4H or per MD discretion. Details in RD assessment.
--- NOTE | 2024-10-06 13:44 | PC.NURSE ---
had mod barium swallow today.tolerated well.st rec pureed diet and thick liqs
--- NOTE | 2024-10-06 14:37 | P.PN_ITS ---
Subjective 2 Subjective: Overnight. Patient has remained hemodynamically stable and afebrile. He is saturating 98% on 2 L on examination wean down down to 1 L. Denies any nausea, vomiting. Vitals/I&O/Wt Last Vital Signs Temp 97.3 F L 10/06/24 12:00 Pulse 72 10/06/24 13:49 Resp 18 10/06/24 13:49 BP 132/80 10/06/24 12:00 Pulse Ox 97 10/06/24 13:49 O2 Del Method Nasal Cannula 10/06/24 13:49 O2 Flow Rate 2 10/06/24 13:49 10/05/24 10/06/24 10/06/24 22:59 06:59 14:59 Intake Total 600 / 1196.4 250 / 1446.4 300 / 300 Output Total 1150 / 1150 300 / 1450 Balance -550 / 46.4 -50 / -3.6 300 / 300 Weight last 48 hrs Weight 71.668 kg Weight 71.668 kg Weight 84.368 kg Weight 84.368 kg Weight 84.368 kg Physical Exam 2 Narrative: General: No acute distress, awake, nonverbal, not following simple directions HEENT: PERRLA, pupils bilaterally equal and reactive Chest: Bilateral bronchial breath sounds with occasional rhonchi more so on the right side CVS: S1-S2 regular, no murmurs, no tachycardia, no gallops, no rubs Abdomen: Soft, nontender, no organomegaly, bowel sounds present Neuro: No focal deficits, no facial deformity, AO x3, power 5/5 in all limbs Urinary Catheter Management: Blanco: Cath Placed During This Visit: yes Reason for Continuing Indwelling Catheter: Accurate Measurement of Urinary Output in Critically Ill Patients Urinary Catheter Date of Insertion: 10/04/24 Urinary Catheter Time of Insertion: 20:00 Data 10/06/24 03:48 10/06/24 03:48 Micro: Microbiology 10/05/24 09:00 Urine Culture - Preliminary Urine,Clean Catch 10/04/24 18:36 Blood Culture - Preliminary Blood NEGATIVE TO DATE 10/04/24 18:32 Blood Culture - Preliminary Blood NEGATIVE TO DATE A&P Assessment and plan (1) Hypoxia: (2) Aspiration into airway: (3) RSV (acute bronchiolitis due to respiratory syncytial virus): (4) Elevated troponin: (5) Leukocytosis: (6) Hyponatremia: (7) Nonverbal: (8) S/P percutaneous endoscopic gastrostomy (PEG) tube placement: (9) History of stroke with residual deficit: Plan 84-year-old female with history of. Residual deficits, nonverbal at baseline who was recently transitioning last 6 months from PEG tube feeds to oral intake was sent into the ER today after having episodes of choking earlier today morning followed by bradycardia and hypotension found to have elevated troponin, hyponatremia and leukocytosis in the ER. Hypoxia: On room air at baseline. Currently requiring 1 to 2 L of oxygen supplementation. Continue to monitor. In setting of possible aspiration pneumonia along with RSV. Start on nebulization treatment with DuoNeb every 6 hour, Pulmicort twice daily. Start on Solu-Medrol 40 mg every 8 hours. Supportive treatment with aggressive pulmonary toilet. Aspiration: With mild leukocytosis. Cannot rule out aspiration pneumonia. Respiratory viral panel positive for rhinovirus. Bacterial antigen negative. MRSA swab positive in the past. Continue with IV vancomycin and Zosyn. Keep NPO. Advance diet as per speech evaluation. Will check modified barium swallow. If remains n.p.o. for more than 24 more hours we will start on PEG tube feeds. Follow-up sputum culture, blood culture. Elevated troponin: Most likely in setting of demand ischemia. Negative delta trend. Repeat troponin today. Echocardiogram done Shows EF of 55 to 60%, grade 1 diastolic function or mild MR with mild thickening of right coronary cusp of aortic valve. Discontinue heparin drip for now. Low concerns for non-ST elevation ID. Continue with aspirin, statin, metoprolol 12.5 mg twice daily. Discussed in detail with patient's DPOA/son over the phone. Discussed options of treatment for a possible ID with Lexiscan stress test and possibly need of cardiac angiogram with or without PCI versus medical management. We discussed with angiogram if needed she would be at the risk of contrast-induced nephropathy versus there is a risk of recurrent MIs, not complete resolution of ID with medical therapy which can also lead to worsening EF. After the patient son she is usually nonverbal, is usually bedbound and would not want to undergo dialysis hence would want to hold off on any invasive procedure and would continue with medical therapy. Hypertension: Goal blood pressure less than 140/90 mmHg. Continue with home dose of lisinopril, added metoprolol. Hyponatremia: Resolving. Repeat UA and urine lites. Strict input charting, daily weights. Blanco catheterization Check daily for now. Hold off on IV fluids. CODE STATUS: DNR/DNI in the past. Confirm with the son. N.p.o. Heparin drip will be sufficient for DVT prophylaxis Protonix for PUD prophylaxis Plan for the day: Will start on dysphagia level 4 diet as per modified barium swallow and speech evaluation. Continue current IV antibiotics. Oxygen premeditation keeping saturation over 90%. Wean down to 1 L today. Hemodynamically stable. Continue with current dose of metoprolol and lisinopril. Continue with IV antibiotics for now. Will plan to complete 5-day course of antibiotics. Wean Solu-Medrol down to 40 mg every 12 hourly. Continue with nebulization treatment. Discharge plan: Plan to discharge back to SNF if remains hemodynamically stable and afebrile on stable oxygen requirement after starting diet within next 24 hours. Attestations 2 Medical Necessity Statement*: Requires further hospitalization for management of hypoxia in setting of RSV, aspiration pneumonitis leading to demand ischemia Diagnoses Hypoxia R09.02 Aspiration into airway T17.908A RSV (acute bronchiolitis due to respiratory syncytial virus) J21.0 Elevated troponin R79.89 Leukocytosis D72.829 Hyponatremia E87.1 Nonverbal R47.01 S/P percutaneous endoscopic gastrostomy (PEG) tube placement Z93.1 History of stroke with residual deficit I69.30
[2024-10-06] MEDS: pantoprazole 40 mg SDV IVP (17:23)
[2024-10-06 18:34] LABS: Vancomycin Trough 32.1 ug/mL (10-15)
[2024-10-06] MEDS: atorvastatin 40 mg Tablet 20 MG PEG-TUBE (21:29)
[2024-10-07] VITALS (11 sets, daily range): BP systolic 98–127; BP diastolic 57–70; PULSE 62–94; RESP 16–22; TEMP 36.6–37.1; O2SAT 90–96
[2024-10-07] MEDS: ipratropium-albuterol 3 mL Neb INHALATION ×3 (02:59→14:41)
[2024-10-07] MEDS: piperacillin-tazobactam 3.375 GM in sodium chloride 0.9% (plus) 50 ML IV (03:36)
[2024-10-07] MEDS: methylPREDNISolone sod succ 40 mg/mL INJ IVP (06:01)
[2024-10-07 07:19] LABS: Basophils % 0.2 %; Hematocrit 32.5 % (36-47); Lymphocytes # 0.4 10^3/uL (0.8-4.8); Lymphocytes % 3.5 %; Mean Corpuscular HGB Conc 32.6 g/dL (30-55); Mean Corpuscular Hemoglobin 31.5 pg (27-33); Mean Corpuscular Volume 96.7 fl (85-98); Monocytes % 8.3 %; Neutrophils # 10.38 10^3/uL (1.8-7.7); Neutrophils % 87.5 %; Nucleated Red Blood Cells % 0 %; Platelet Count 241 10^3/cmm (157-399); Red Blood Count 3.36 10^6/uL (3.85-5.65); Red Cell Distribution Width 12.7 % (12.1-15.1); White Blood Count 11.85 10^3/uL (3.29-11.43)
[2024-10-07 07:40] LABS: Alanine Aminotransferase 7 U/L (0-33); Albumin Level 3.2 g/dL (3.5-5.2); Alkaline Phosphatase 56 U/L (35-105); Anion Gap 12.4 (5-19); Aspartate Amino Transferase 12 U/L (0-32); Blood Urea Nitrogen 30 mg/dL (8-23); Carbon Dioxide 22 mmol/L (22-29); Chloride 101 mmol/L (98-107); Globulin 2.7 g/dL (1.3-4.6); Glucose 128 mg/dL (65-115); Osmolality Calculated 282 mOsm/kg (285-295); Potassium 3.4 mmol/L (3.5-5.1); Sodium 132 mmol/L (136-145); Total Bilirubin 0.3 mg/dL (0.15-1.2); Total Protein 5.9 g/dL (6.6-8.7)
[2024-10-07 07:44] LABS: Vancomycin Trough 27.2 ug/mL (10-15)
[2024-10-07] MEDS: budesonide 0.5 mg/2 mL Neb INHALATION (07:59)
[2024-10-07] MEDS: lisinopril 20 mg Tablet PEG-TUBE (08:43)
[2024-10-07] MEDS: aspirin 81 mg EC Tablet XX (08:43)
[2024-10-07] MEDS: divalproex Sprinkles 125 mg Capsule 250 MG PEG-TUBE (08:43)
[2024-10-07] MEDS: metoprolol tartrate 25 mg Tablet 12.5 MG PO (08:44)
--- NOTE | 2024-10-07 10:52 | PM.DCS ---
Discharge Providers Date of Admission: 10/04/24 13:44 Date of Discharge: October 07, 2024 Attending Provider at Admission: Crispin Helms MD Attending Provider at Discharge: Crispin Helms MD Primary Care Provider: Roddy Paz Diagnoses at Discharge Discharge Diagnosis (1) Hypoxia: Status: Acute (2) Aspiration into airway: Status: Acute (3) RSV (acute bronchiolitis due to respiratory syncytial virus): Status: Acute (4) Elevated troponin: Status: Acute (5) Leukocytosis: Status: Acute (6) Hyponatremia: Status: Acute (7) Nonverbal: Status: Acute (8) S/P percutaneous endoscopic gastrostomy (PEG) tube placement: Status: Acute (9) History of stroke with residual deficit: Status: Acute Reason for Visit Reason for Visit: AMS, Low BP Hospital Course Hospital Course Geri Spencer is a 84 year old female with a past medical history significant for 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 As [facility] she was recently transitioned over from PEG tube feeds to pur?ed diet within last 6 months. Patient was initiated tried on a more regular diet but was not able to tolerate hence was done back down to pur?ed diet recently. Today morning after breakfast she had an episode of choking and she coughed up her food after which she had an episode of bradycardia and hypoxia and she was sent to the ER. As per the nursing staff at baseline she is dependent for her ADLs. In the ER she was found to have oxygen requirement of 2 L which seems to be her baseline, heart rate running in 80s with blood pressure of 1 20-1 30 systolics. Patient is at baseline nonverbal is not able to localize any area of pain or complaints. Blood work showed leukocytosis, mild hyponatremia, troponin at baseline up to 168 with a delta of -10 in 2 hours. She was admitted to the hospital further evaluation and management of acute hypoxic respiratory failure with concerns for aspiration pneumonitis. On admission there was concern for Non-ST elevation VT given elevated troponins. She had negative delta troponin. Echocardiogram was done which was negative for regional wall motion abnormality and showed a EF 55 to 60%. Patient's goals of care discussions were done in detail with her son/DPOA over the phone. He was agreeable with medical management but did not want any kind of aggressive management including cardiac stress test or angiogram. Patient at first was treated as per ACS protocol which was later discontinued given concerns for elevated troponin on admission in setting of demand ischemia. She was found to be positive for RSV. Patient's diet was advanced as per speech evaluation and modified barium swallow. Her oxygen supplementation had remained stable on dysphagia level 4 diet. She has been discharged hemodynamically stable condition on oral Levaquin and linezolid for 7 more days, steroid taper and nebulization treatment. She is to continue with aspiration precaution at SNF. Physical Exam Narrative: General: No acute distress, awake, nonverbal, not following simple directions HEENT: PERRLA, pupils bilaterally equal and reactive Chest: Bilateral bronchial breath sounds with occasional rhonchi more so on the right side CVS: S1-S2 regular, no murmurs, no tachycardia, no gallops, no rubs Abdomen: Soft, nontender, no organomegaly, bowel sounds present Neuro: No focal deficits, no facial deformity, AO x3, power 5/5 in all limbs Urinary Catheter Management: Blanco: Cath Placed During This Visit: yes Reason for Continuing Indwelling Catheter: Accurate Measurement of Urinary Output in Critically Ill Patients Urinary Catheter Date of Insertion: 10/04/24 Urinary Catheter Time of Insertion: 20:00 Discharge Data Studies Completed and Pending Completed Studies During Hospitalization Category Date Time Status CT angio chest PE protcl [id number] Stat Cat Scan 10/04/24 12:[address] head wo con* [id number] Stat Cat Scan 10/04/24 10:27 Completed FL barium swallow modifd [id number] Routine Exams 10/06/24 11:00 Completed XR chest 1V portable [id number] Stat Exams 10/04/24 12:26 Completed CV. echo complete* [id number] Routine Ultrasound 10/04/24 14:34 Completed Pending at discharge Category Date Time Status Blood Culture Stat Lab 10/04/24 18:36 Results Sputum Culture and Gram Stain Stat Lab 10/04/24 14:21 Uncollected Urine Culture Stat Lab 10/05/24 09:00 Results Vancomycin Trough Timed Lab 10/08/24 07:00 Ordered Radiology Impressions Head CT 10/04/24 10:27 IMPRESSION: 1. No acute intracranial hemorrhage or edema. 2. Severe cerebral and cerebellar atrophy with confluent chronic small vessel disease. 3. Progression of ventriculomegaly since the prior study. Correlate for normal pressure hydrocephalus. Chest X-Ray 10/04/24 12:26 IMPRESSION: 1. Atelectasis and/or infiltrate in the LEFT lower lobe. 2. Chronic interstitial changes noted bilaterally. Chest CTA 10/04/24 12:42 IMPRESSION: 1. No pulmonary embolism. 2. Mild CHF. 3. No pneumonia. Subsegmental atelectasis LEFT lung base. 4. No adenopathy. Modified Barium Swallow 10/06/24 11:00 IMPRESSION: 1. The patient experienced penetration into the laryngeal inlet when ingesting thin liquid and honey consistency barium foodstuffs. No aspiration was noted. 2. Mid esophageal hypomotility when swallowing a barium tablet. See above discussion. A separate report with recommendations will follow from the speech therapy service. Echocardiogram: CONCLUSIONS LV systolic function is normal with EF 55 to 60%. Grade 1 diastolic dysfunction. Mild mitral regurgitation. Echogenic structure/thickening seen on right coronary leaflet of aortic valve. Mild tricuspid regurgitation No comparison studies are available. Albert Rodriguez MD (Electronically Signed) Final Date: 04 October 2024 18:14 Laboratory Results WBC 11.85 10^3/uL (3.29-11.43) H 10/07/24 07:12 RBC 3.36 10^6/uL (3.85-5.65) L 10/07/24 07:12 Hgb 10.60 g/dL (11.27-16.99) L 10/07/24 07:12 Hct 32.5 % (36-47) L 10/07/24 07:12 MCV 96.7 fl (85-98) 10/07/24 07:12 MCH 31.5 pg (27-33) 10/07/24 07:12 MCHC 32.6 g/dL (30-55) 10/07/24 07:12 RDW 12.7 % (12.1-15.1) 10/07/24 07:12 Plt Count 241 10^3/cmm (157-399) 10/07/24 07:12 MPV 10.0 fL (7.4-10.4) 10/07/24 07:12 Neut % (Auto) 87.5 % 10/07/24 07:12 Lymph % (Auto) 3.5 % 10/07/24 07:12 [place] % (Auto) 8.3 % 12/14/24 07:12 Eos % (Auto) 0.0 % 10/07/24 07:12 Baso % (Auto) 0.2 % 10/07/24 07:12 Neut # (Auto) 10.38 10^3/uL (1.8-7.7) H 10/07/24 07:12 Lymph # (Auto) 0.4 10^3/uL (0.8-4.8) L 10/07/24 07:12 [place] # (Auto) 1.0 10^3/uL (0.2-0.9) H 10/07/24 07:12 Eos # (Auto) 0.0 10^3/uL (0.0-0.8) 10/07/24 07:12 Baso # (Auto) 0.0 10^3/uL (0.0-0.1) 10/07/24 07:12 Nucleated RBC % (auto) 0 % 10/07/24 07:12 Nucleated RBCs # 0.0 /100WBC 10/07/24 07:12 APTT 192.5 SECONDS (23.9-36.7) H* 10/05/24 08:39 Specimen Type Arterial 10/04/24 10:51 Sample Site Radial, right 10/04/24 10:51 ABG pH 7.45 (7.35-7.45) 10/04/24 10:51 ABG pCO2 34.5 mmHg (35-45) L 10/04/24 10:51 ABG pO2 66.4 mmHg (80.0-100.0) L 10/04/24 10:51 ABG PO2/FiO2 Ratio 237 10/04/24 10:51 ABG HCO3 24.2 mmol/L (22-26) 10/04/24 10:51 ABG O2 Saturation 93.8 10/04/24 10:51 ABG Base Excess 0.6 mmol/L (-2.0-2.0) 10/04/24 10:51 Senthil Test N/a 10/04/24 10:51 A-a O2 Gradient 11.9 mmHg (5-10) H 10/04/24 10:51 Hematocrit 38.1 % (37-47) 10/04/24 10:51 Hgb O2 Saturation 92.3 % (95-100) L 10/04/24 10:51 Carboxyhemoglobin 1.1 %THgb (0.4-20.1) 10/04/24 10:51 Methemoglobin 0.5 % (0.4-1.5) 10/04/24 10:51 Total Hemoglobin 12.4 g/dL (12-16) 10/04/24 10:51 Sodium 127.0 mmol/L (131-143) L 10/04/24 10:51 Potassium 4.1 mmol/L (3.5-5.0) 10/04/24 10:51 Glucose 126.0 mg/dL (70-115) H 10/04/24 10:51 Ionized Calcium 1.2 mmol/L (1.1-1.4) 10/04/24 10:51 O2 Delivery Device Nc 10/04/24 10:51 O2 Liters/Min 2.0 % 10/04/24 10:51 FiO2 28.0 % 10/04/24 10:51 Supervisor [employer] Placing ID [place] 10/04/24 10:51 Sodium 132 mmol/L (136-145) L 10/07/24 07:12 Potassium 3.4 mmol/L (3.5-5.1) L 10/07/24 07:12 Chloride 101 mmol/L (98-107) 10/07/24 07:12 Carbon Dioxide 22 mmol/L (22-29) 10/07/24 07:12 Anion Gap 12.4 (5-19) 10/07/24 07:12 BUN 30 mg/dL (8-23) H 10/07/24 07:12 Creatinine 0.9 mg/dL (0.5-0.9) 10/07/24 07:12 GFR Calculation Not Reportable 10/07/24 07:12 Glucose 128 mg/dL (65-115) H 10/07/24 07:12 Estimat Average Glucose 111 10/04/24 11:35 Hemoglobin A1c 5.5 % (4.0-6.0) 10/04/24 11:35 Calculated Osmolality 282 mOsm/kg (285-295) L 10/07/24 07:12 Lactic Acid 1.8 mmol/L (0.5-2.2) 10/04/24 11:35 Calcium 9.0 mg/dL (8.5-10.5) 10/07/24 07:12 Phosphorus 4.1 mg/dL (2.5-4.5) 10/05/24 08:39 Magnesium 1.9 mg/dL (1.7-2.3) 10/05/24 08:39 Iron 17 ug/dL (37-145) L 10/04/24 13:38 TIBC 285 mcg/dl 10/04/24 13:38 % Saturation 5.9 % (20-50) L 10/04/24 13:38 Unsat Iron Binding 268 ug/dL (112-347) 10/04/24 13:38 Total Bilirubin 0.3 mg/dL (0.15-1.2) 10/07/24 07:12 AST 12 U/L (0-32) 10/07/24 07:12 ALT 7 U/L (0-33) 10/07/24 07:12 Alkaline Phosphatase 56 U/L (35-105) 10/07/24 07:12 Creatine Kinase 49 U/L (26-192) 10/04/24 11:35 Troponin T 5th Gen ng/L 124 ng/L (0-10) H* 10/05/24 12:31 Troponin T Baseline 168 ng/L (0-10) H* 10/04/24 11:35 Troponin T 120 Minute 157.7 ng/L (0-10) H 10/04/24 13:38 Delta Troponin T -10.3 ABS# (0-10) L 10/04/24 13:38 Troponin T Hi Sens 6Hr 146.5 ng/L (0-10) H 10/04/24 18:32 Troponin T Hi Sens 6Hr Delta -21.5 ng/L (0-12) L 10/04/24 18:32 Total Protein 5.9 g/dL (6.6-8.7) L 10/07/24 07:12 Albumin 3.2 g/dL (3.5-5.2) L 10/07/24 07:12 Globulin 2.7 g/dL (1.3-4.6) 10/07/24 07:12 Triglycerides 106 mg/dL (0-150) 10/04/24 11:35 Cholesterol 98 mg/dL (0-200) 10/04/24 11:35 LDL Cholesterol, Calc 39 mg/dL (50-129) L 10/04/24 11:35 HDL Cholesterol 38 mg/dL (60-100) L 10/04/24 11:35 LDL/HDL Ratio 1.03 RATIO (0.00-3.22) 10/04/24 11:35 Cholesterol/HDL Ratio 2.58 mg/dL (0.0-4.40) 10/04/24 11:35 Lipase 24 U/L (13-60) 10/04/24 11:35 Vitamin B12 419 pg/mL (232-1245) 10/04/24 13:38 Folate 5.6 ng/mL (4.8-37.3) 10/04/24 11:35 Procalcitonin 0.08 ng/mL (0-0.5) 10/05/24 08:39 TSH 1.86 uIU/mL (0.27-4.20) 10/04/24 13:38 Urine Color Red (Yellow) A 10/05/24 09:00 Urine Appearance Turbid (CLEAR) A 10/05/24 09:00 Urine pH 5.0 (5-7) 10/05/24 09:00 Ur Specific [place] 1.037 (1.005-1.030) H 10/05/24 09:00 Urine Protein 2+ (Negative) A 10/05/24 09:00 Urine Glucose (UA) Negative (Normal) 10/05/24 09:00 Urine Ketones Negative (Negative) 10/05/24 09:00 Urine Blood 3+ (Negative) A 10/05/24 09:00 Urine Nitrate Negative (Negative) 10/05/24 09:00 Urine Bilirubin Negative (Negative) 10/05/24 09:00 Urine Urobilinogen 1.0 mg/dL (Negative) 10/05/24 09:00 Ur Leukocyte Esterase 2+ (Negative) A 10/05/24 09:00 Urine RBC >100 /hpf (0-2) H 10/05/24 09:00 Urine WBC 51-100 /hpf (0-5) H 10/05/24 09:00 Ur Squamous Epith Cells 11-20 /hpf (0-5) 10/05/24 09:00 Amorphous Sediment Not Reportable 10/05/24 09:00 Urine Bacteria Trace /hpf (NONE) 10/05/24 09:00 Hyaline Casts 9.01 /lpf 10/05/24 09:00 Urine Mucus Trace /hpf 10/05/24 09:00 Ur Oval Fat Bodies 1+ /hpf 10/04/24 11:14 Ur Random Sodium 71 mmol/L 10/05/24 09:00 Ur Random Potassium 41 mmol/L 10/05/24 09:00 Ur Random Chloride 29 mmol/L 10/05/24 09:00 Vancomycin Trough 27.2 ug/mL (10-15) H* 10/07/24 07:12 Adenovirus (PCR) Not detected (NOT DETECT) 10/04/24 15:34 C. pneumoniae DNA (PCR) Not detected (NOT DETECT) 10/04/24 15:34 Coronavirus 229E (PCR) Not detected (NOT DETECT) 10/04/24 15:34 Human Metapneumovir PCR Not detected (NOT DETECT) 10/04/24 15:34 Influenza A (H1) PCR Not detected (NOT DETECT) 10/04/24 15:34 Influ A (H1/09) PCR Not detected (NOT DETECT) 10/04/24 15:34 Influenza A (H3) PCR Not detected (NOT DETECT) 10/04/24 15:34 Influenza Type A (PCR) Not detected (NOT DETECT) 10/04/24 15:34 Influenza Type B (PCR) Not detected (NOT DETECT) 10/04/24 15:34 M. pneumoniae (PCR) Not detected (NOT DETECT) 10/04/24 15:34 Parainfluenza 1 (PCR) Not detected (NOT DETECT) 10/04/24 15:34 Parainfluenza 2 (PCR) Not detected (NOT DETECT) 10/04/24 15:34 Parainfluenza 3 (PCR) Not detected (NOT DETECT) 10/04/24 15:34 Parainfluenza 4 (PCR) Not detected (NOT DETECT) 10/04/24 15:34 RSV Type A (PCR) Detected (NOT DETECT) A 10/04/24 15:34 RSV Type B (PCR) Not detected (NOT DETECT) 10/04/24 15:34 Entero/Rhino (PCR) Not detected (NOT DETECT) 10/04/24 15:34 SARS-CoV-2 (PCR) Not detected (NOT DETECT) 10/04/24 15:34 Vitals Last Vital Signs Temp 97.8 F 12/14/24 07:59 Pulse 70 10/07/24 08:03 Resp 18 10/07/24 08:00 BP 127/64 10/07/24 07:59 Pulse Ox 95 10/07/24 08:00 O2 Del Method Nasal Cannula 10/07/24 08:00 O2 Flow Rate 1 10/07/24 08:00 Discharge Plan Discharge Patient Disposition: Xfer SNF Condition: Stable Prescriptions: New budesonide 0.5 mg/2 mL Suspension For Nebulization 0.5 mg inhalation BID.RESPIRATORY 30 Days Qty: 120 0RF metoprolol tartrate 25 mg Tablet 12.5 mg PO BID@0900,2100 Qty: 30 0RF ipratropium-albuterol 0.5 mg-3 mg(2.5 mg base)/3 mL Solution For Nebulization 3 ml inhalation Q8H 30 Days Qty: 90 0RF prednisone 10 mg tablet See Taper PO DIRECTED Qty: 42 0RF Taper: predniSONE 60-10 60 mg Daily for 2 Days and 0 Hour 50 mg Daily for 2 Days and 0 Hour 40 mg Daily for 2 Days and 0 Hour 30 mg Daily for 2 Days and 0 Hour 20 mg Daily for 2 Days and 0 Hour 10 mg Daily for 2 Days and 0 Hour Rx Instructions: see taper instructions levofloxacin 750 mg tablet 750 mg PO Q24H 7 Days Qty: 7 0RF linezolid 100 mg/5 mL suspension for reconstitution 400 mg PO BID 7 Days Qty: 280 0RF Continued hydrocortisone [Proctosol HC] 2.5 % cream with perineal applicator 1 applic LA DAILY PRN (Reason: hemorrhoids) Qty: 30 1RF aspirin 81 mg Tablet,Delayed Release (Dr/Ec) 81 mg PO DAILY Qty: 30 0RF atorvastatin 40 mg Tablet 20 mg PO BEDTIME Qty: 60 0RF lisinopril 20 mg Tablet 20 mg PO BID Qty: 60 0RF acetaminophen 325 mg Tablet 325 mg PO Q4H PRN (Reason: Pain) magnesium hydroxide [Milk of Magnesia] 400 mg/5 mL Suspension 30 ml PO DAILY PRN (Reason: Constipation) bisacodyl [Dulcolax (bisacodyl)] 10 mg Suppository 10 mg LA DAILY PRN (Reason: Constipation) polyethylene glycol 3350 17 gram Powder In Packet 17 g peg-tube BID Qty: 30 4RF Culturelle 10 billion cell Capsule 1 cap PO DAILY divalproex 125 mg capsule, delayed rel sprinkle 250 mg PO BID Discharge Orders: Discharge Order (Routine); Ordered 10/07/24 Ordered By: Crispin Helms Referrals: Roddy Paz, APPLIER [Primary Care Provider] - 7-10 days (Please call Roddy Paz's Office on Wednesday at [phone] to schedule a follow up appointment. Thank you.) Discharge Diet: As Directed Discharge Activity: Resume usual activity and Increase activity as tolerated Patient Instructions: Metoprolol (By mouth) (Lopressor, Toprol XL), Prednisone (By mouth) (Prednisone Intensol, Prednicot, Deltasone, Hood), Levofloxacin (By mouth) (Levaquin, Levaquin Leva-anabell), Budesonide (By breathing) (Flex de Pulmicort, Pulmicort Flexhaler,..., Ipratropium/Albuterol (By breathing) (Combivent, Combivent..., Linezolid (By mouth) (Zyvox), Opioid Safety Activity Restrictions/Additional Instructions: Dysphagia level 4 diet. Aspiration precautions Discharge Attestations Time Spent in Discharge Care*: greater than 30 min Specific Discharge Activities: educating and/or supporting family/caregiver, discussing with pcp/other providers, discussing with sample case porter/social workers/dc planners, documenting/other paperwork and evaluating patient/reviewing data Status at Discharge: Cognitive status at discharge: severely impaired cognition, Behavioral status at discharge: cooperative, Functional status at discharge: wheelchair bound, Overall status at discharge: patient is back to baseline Quality Metrics Clinical Quality Measures [ No reported AMI, CVA or VTE this stay] Coding Level of Care Code 24537 Total time (in minutes) for Discharge: 60 Diagnoses Hypoxia R09.02 Aspiration into airway T17.908A RSV (acute bronchiolitis due to respiratory syncytial virus) J21.0 Elevated troponin R79.89 Leukocytosis D72.829 Hyponatremia E87.1 Nonverbal R47.01 S/P percutaneous endoscopic gastrostomy (PEG) tube placement Z93.1 History of stroke with residual deficit I69.30
--- NOTE | 2024-10-07 11:01 | PC.SLP ---
Therapeutic intervention attempted at 1050 with patient. Nursing reported she has been sleeping most of the morning. Obtained update on swallow status. Nursing continues to report pt is eating minimal amounts of PO. She consumed less than 25% of most recent meal. She is at a high risk for aspiration and is being sat up after all meals to reduce pocketed food from entering the airway. Pt was not able to be aroused for speech therapy this morning. DIRECTOR GLOBAL DEVELOPMENT will attempted later in the day, specifically at noon meal time. Darcy Elizondo MA, [facility]-DIRECTOR GLOBAL DEVELOPMENT
--- NOTE | 2024-10-07 15:44 | PC.NURSE ---
Patient discharged to [facility]. Report called to Blayne Gonzalez. Patient taken by stretcher and ems. No distress observed.
== END 2024-10-07 15:44 | disposition skilled nursing facility (03) | DRG 177 ==
LOC: ER 12:04 → CSU 13:44
PROVIDERS: Admitting Provider Student in an Organized Health Care Education/Training Program; Emergency Provider Family Medicine; PCP Nurse Practitioner Family; Visit Provider Student in an Organized Health Care Education/Training Program
DX: J69.0 Pneumonitis due to inhalation of food and vomit (principal); J96.01 Acute respiratory failure with hypoxia; I69.354 Hemiplegia and hemiparesis following cerebral infarction affecting left non-dominant side; J21.0 Acute bronchiolitis due to respiratory syncytial virus; E87.1 Hypo-osmolality and hyponatremia; I69.391 Dysphagia following cerebral infarction; R13.10 Dysphagia, unspecified; I10 Essential (primary) hypertension; R00.1 Bradycardia, unspecified; H91.90 Unspecified hearing loss, unspecified ear; H35.30 Unspecified macular degeneration; I95.9 Hypotension, unspecified; Z79.82 Long term (current) use of aspirin; Z11.52 Encounter for screening for COVID-19; Z93.1 Gastrostomy status; Z99.81 Dependence on supplemental oxygen; Z85.828 Personal history of other malignant neoplasm of skin; Z80.0 Family history of malignant neoplasm of digestive organs
CPT/HCPCS: 36415; 36600; 70450; 71045; 71275; 74230; 80048; 80051; 80053; 80061; 80202; 81001; 81015; 82330; 82436; 82550; 82607; 82746; 82805; 83036; 83540; 83550; 83605; 83690; 83735; 84100; 84133; 84145; 84300; 84443; 84484; 85025; 85730; 87040; 87086; 87486; 87581; 87633; 92523; 92610; 92611; 93005; 93306; 94640; 94664; 96365; 96366; 96375; 96376; 99285; A9270; J0696; J1644; J2470; J2543; J2919; J3370; J7050; J7626

== ENCOUNTER 2025-08-07 07:08 | Emergency (ER) | payer MEDICARE, MEDICAID, SELFPAY ==
[2025-08-07 07:15] VITALS: BP 151/77; PULSE 78; RESP 16; TEMP 36.4; O2SAT 92
--- NOTE | 2025-08-07 07:21 | CTR_ITS ---
PROCEDURE INFORMATION: Exam: CT Head Without Contrast Exam date and time: 08/07/2025 07:32 AM Age: 84 years old Clinical indication: Injury or trauma; Fall; Blunt trauma (contusions or hematomas); Consciousness not specified TECHNIQUE: Imaging protocol: Computed tomography of the head without contrast. Radiation optimization: All CT scans at this facility use at least one of these dose optimization techniques: automated exposure control; mA and/or kV adjustment per patient size (includes targeted exams where dose is matched to clinical indication); or iterative reconstruction. COMPARISON: CT head wo con* [id number] 10/04/2024 10:54 AM RADIATION DOSE METRICS: Total DLP (mGy-cm): 3.94 FINDINGS: Brain: No acute intracranial hemorrhage or abnormal extra-axial fluid collections. No midline shift or mass-effect. Posterior fossa is unremarkable. Significant cerebral and cerebellar atrophy, similar to the prior CT. Confluent low-attenuation throughout the subcortical white matter, consistent with marked chronic microvascular ischemic changes. Scattered lacunar infarcts are again noted. Cerebral ventricles: Ventricular enlargement is appropriate for the amount of atrophy and similar to the prior CT. Paranasal sinuses: Visualized sinuses are well aerated. No fluid levels. Mastoid air cells: Visualized mastoid air cells are well aerated. Bones: Unremarkable. No acute fracture. Soft tissues: Unremarkable. CT/CT head wo con* [id number] IMPRESSION: 1. No acute intracranial abnormality. 2. Significant cerebral and cerebellar atrophy with confluent chronic microvascular ischemic changes and scattered lacunar infarcts.
--- NOTE | 2025-08-07 07:21 | CTR_ITS ---
PROCEDURE INFORMATION: Exam: CT Cervical Spine Without Contrast Exam date and time: 08/07/2025 07:32 AM Age: 84 years old Clinical indication: Injury or trauma; Blunt trauma; Additional info: Fall TECHNIQUE: Imaging protocol: Computed tomography of the cervical spine without contrast. Radiation optimization: All CT scans at this facility use at least one of these dose optimization techniques: automated exposure control; mA and/or kV adjustment per patient size (includes targeted exams where dose is matched to clinical indication); or iterative reconstruction. COMPARISON: CT cervical spin wo con* [id number] 02/08/2024 11:37 PM RADIATION DOSE METRICS: Total DLP (mGy-cm): 472.4 FINDINGS: Bones: Degenerative changes of the spine with osteophytic lipping. Mild retrolisthesis of C5 on C4. Disc space narrowing at C4-C5, C5-C6 and C6-C7. Multilevel facet arthropathy. Degenerative changes of the atlantodental interval. Lateral masses of C1 align well with C2. Longitudinal lucency involving the rightward C5 facet is thought to be nonacute due to the sclerotic margin and appearance on the axial and coronal images (series 23, image 42). Osteopenia. Exaggerated cervical lordosis. Lungs: Lung apices are normal. Vasculature: Atherosclerotic vascular disease. Soft tissues: Unremarkable. CT/CT cervical spin wo con* [id number] IMPRESSION: 1. No acute osseous abnormality. 2. Degenerative changes of the cervical spine as above.
--- NOTE | 2025-08-07 07:21 | CTR_ITS ---
PROCEDURE INFORMATION: Exam: CT Maxillofacial Without Contrast Exam date and time: 08/07/2025 07:32 AM Age: 84 years old Clinical indication: Injury or trauma; Fall; Blunt trauma (contusions or hematomas); Jaw; Right TECHNIQUE: Imaging protocol: Computed tomography of the face without contrast. Radiation optimization: All CT scans at this facility use at least one of these dose optimization techniques: automated exposure control; mA and/or kV adjustment per patient size (includes targeted exams where dose is matched to clinical indication); or iterative reconstruction. COMPARISON: CT head wo con* [id number] 10/04/2024 10:54 AM RADIATION DOSE METRICS: Total DLP (mGy-cm): 617.4 FINDINGS: Paranasal sinuses: Paranasal sinuses are well aerated. Orbital cavities: Orbits are normal. Globes are unremarkable. Mastoid air cells: Bilateral tympanomastoid cavities are well aerated. Trachea: The airway is patent. Bones: Osteopenia. Both mandibular condyles are well seated. Degenerative changes of the cervical spine. Soft tissues: Motion artifact is noted on several images. Increased density within the soft tissues adjacent to the rightward mandible and extending up to the area of the cheek and right periorbital soft tissues is consistent with probable hematoma. CT/CT facial bones wo con* [id number] IMPRESSION: 1. No facial bone fracture with limitation of patient motion taken into account. 2. Large soft tissue hematoma/edema extending from the right-side of the mandible, up the cheek into the right periorbital soft tissues.
--- NOTE | 2025-08-07 07:22 | W.ED.FALL ---
HPI - Fall General: Chief Complaint: Fall Stated Complaint: Fall, Hit Face Time Seen by Provider: 08/07/25 07:20 Source: patient and EMS Mode of arrival: EMS Limitations: altered mental status History of Present Illness: 84-year-old female here from [place] has a history of dementia. Per EMS patient fell at 230 and hit her face does have swelling over her right cheek. Unsure if she had any loss of consciousness. Patient is at her baseline here and only alert to self she does complain of pain to the right side of her face denies pain elsewhere. Related Data Home Medications ?Medication ?Instructions ?Recorded ?Confirmed acetaminophen 325 mg tablet 325 mg PO Q4H PRN Pain 03/20/24 10/04/24 bisacodyl 10 mg rectal suppository 10 mg LA DAILY PRN Constipation 03/20/24 10/04/24 (Dulcolax (bisacodyl)) magnesium hydroxide 400 mg/5 mL 30 ml PO DAILY PRN Constipation 03/20/24 10/04/24 oral suspension (Milk of Twones) Lactobacillus rhamnosus GG 10 1 cap PO DAILY 10/04/24 10/04/24 billion cell capsule (Culturelle) divalproex 125 mg capsule,delayed 250 mg PO BID 10/04/24 10/04/24 release sprinkle Previous Rx's ?Medication ?Instructions ?Recorded hydrocortisone 2.5 % topical cream 1 applic LA DAILY PRN hemorrhoids 11/18/23 with perineal applicator #30 grams (Proctosol HC) aspirin 81 mg tablet,delayed 81 mg PO DAILY #30 tabs 02/14/24 release atorvastatin 40 mg tablet 20 mg (1/2 x 40 mg) PO BEDTIME #60 02/14/24 tabs lisinopril 20 mg tablet 20 mg PO BID #60 tabs 02/14/24 polyethylene glycol 3350 17 gram 17 g peg-tube BID #30 ea 03/21/24 oral powder packet metoprolol tartrate 25 mg tablet 12.5 mg (1/2 x 25 mg) PO 10/06/24 BID@0900,2100 #30 tabs prednisone 10 mg tablet See Taper PO DIRECTED #42 tabs 10/06/24 Allergies Allergy/AdvReac Type Severity Reaction Status Date / Time No Known Allergies Allergy Verified 08/07/25 07:15 Review of Systems General: Reports: ROS unobtainable due to mental status PFSH ED PFSH: Medical History Acute kidney injury Abdominal pain Large bowel obstruction Fecal impaction in rectum Septic shock 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 Laceration Abrasion of arm, left Hard of hearing Macular degeneration of left eye Bilateral bunions Hammertoe, bilateral Onychodystrophy Toenail fungus Basal cell carcinoma Fall Hypertension Surgical History S/P percutaneous endoscopic gastrostomy (PEG) tube placement Hx of eye surgery Family History Daughter Colon cancer Other Cancer Social History Smoking and tobacco/nicotine status: never used tobacco/nicotine Alcohol intake: never Substance/Drug Use: never Caregiver/support person: No Lives independently: No Household members: family Sexually active: Yes Do you think of yourself as: Straight/Heterosexual Current gender identity: Female Physical Exam Const: COMMON NORMALS: no acute distress, healthy appearing and alert ORIENTATION/CONSCIOUSNESS: Yes oriented to person; not oriented to place and not oriented to time HENMT: COMMON NORMALS: normocephalic; head/scalp not atraumatic (Contusion noted to right forehead) HEAD & SCALP: normocephalic; not atraumatic (Contusion noted to right forehead) OTHER: Swelling along with tenderness over right side of face Eye: COMMON NORMALS: Equal, round and reactive pupils present and EOMs intact bilaterally PUPIL: Yes Equal, round and reactive pupils present Neck/C-Spine: COMMON NORMALS: full ROM and supple Chest: COMMONS NORMALS: normal inspection of the chest and normal palpation of entire chest wall Resp: COMMON NORMALS: normal respiratory effort, No retractions, No use of accessory muscles and clear to auscultation bilaterally AUSCULTATION: clear to auscultation bilaterally Cardio: COMMON NORMALS: regular rate, regular rhythm and No murmurs present (Cardio) RATE: regular rate RHYTHM: regular rhythm GI: COMMON NORMALS: Normal to inspection, nondistended, normoactive bowel sounds present, Soft to palpation, non-tender and no masses PALPATION: Yes Soft to palpation Extremity: COMMON NORMALS: normal to inspection and full ROM Neuro: COMMON NORMALS: moves all extremities and no focal motor deficits SENSORIUM/ORIENTATION: Yes alert, Yes oriented to person, No oriented to place and No oriented to time Psych: COMMON NORMALS: Normal thought process present and cooperative THOUGHT PROCESS: Normal thought process present Skin: COMMON NORMALS: no rashes or lesions noted and no wounds GENERAL SKIN EXAM: no rashes or lesions noted Course Vital Signs: Vital signs: Vital Signs Temperature 97.6 F 08/07/25 07:15 Pulse Rate 78 08/07/25 07:15 Respiratory Rate 16 08/07/25 07:15 Blood Pressure 151/77 08/07/25 07:15 Pulse Oximetry 92 08/07/25 07:15 Oxygen Delivery Me thod Room Air 08/07/25 07:15 MDM - Fall Medical Decision Making Patient presents after a fall from the assisted. Head CT here is normal she has no signs of skull fracture or epidural or subdural hematoma which was in my differential. She does have a large facial contusion no facial fractures no cervical fractures. Rest of her exam is benign here with no hip or abdominal tenderness patient stable for discharge back to assisted at this time. Patient is to ice the area return if worsening understands agrees to plan Medical Records I reviewed the patient's medical records. Lab Data Radiology Impressions Cervical Spine CT 08/07/25 07:21 IMPRESSION: 1. No acute osseous abnormality. 2. Degenerative changes of the cervical spine as above. Face CT 08/07/25 07:21 IMPRESSION: 1. No facial bone fracture with limitation of patient motion taken into account. 2. Large soft tissue hematoma/edema extending from the right-side of the mandible, up the cheek into the right periorbital soft tissues. Head CT 08/07/25 07:21 IMPRESSION: 1. No acute intracranial abnormality. 2. Significant cerebral and cerebellar atrophy with confluent chronic microvascular ischemic changes and scattered lacunar infarcts. All radiology interpretation(s) finalized by discharge Discharge Plan Discharge Patient Disposition: Home Clinical Impression: Closed head injury Qualifiers: Encounter type: initial encounter Qualified Code(s): S09.90XA - Unspecified injury of head, initial encounter Contusion of face Qualifiers: Encounter type: initial encounter Qualified Code(s): S00.83XA - Contusion of other part of head, initial encounter Fall Qualifiers: Encounter type: initial encounter Qualified Code(s): W19.XXXA - Unspecified fall, initial encounter Condition: Stable Prescriptions: No Action hydrocortisone [Proctosol HC] 2.5 % cream with perineal applicator 1 applic LA DAILY PRN (Reason: hemorrhoids) Qty: 30 1RF aspirin 81 mg Tablet,Delayed Release (Dr/Ec) 81 mg PO DAILY Qty: 30 0RF atorvastatin 40 mg Tablet 20 mg PO BEDTIME Qty: 60 0RF lisinopril 20 mg Tablet 20 mg PO BID Qty: 60 0RF acetaminophen 325 mg Tablet 325 mg PO Q4H PRN (Reason: Pain) magnesium hydroxide [Milk of Magnesia] 400 mg/5 mL Suspension 30 ml PO DAILY PRN (Reason: Constipation) bisacodyl [Dulcolax (bisacodyl)] 10 mg Suppository 10 mg LA DAILY PRN (Reason: Constipation) polyethylene glycol 3350 17 gram Powder In Packet 17 g peg-tube BID Qty: 30 4RF Culturelle 10 billion cell Capsule 1 cap PO DAILY divalproex 125 mg capsule, delayed rel sprinkle 250 mg PO BID metoprolol tartrate 25 mg Tablet 12.5 mg PO BID@0900,2100 Qty: 30 0RF prednisone 10 mg tablet See Taper PO DIRECTED Qty: 42 0RF Taper: predniSONE 60-10 60 mg Daily for 2 Days and 0 Hour 50 mg Daily for 2 Days and 0 Hour 40 mg Daily for 2 Days and 0 Hour 30 mg Daily for 2 Days and 0 Hour 20 mg Daily for 2 Days and 0 Hour 10 mg Daily for 2 Days and 0 Hour Rx Instructions: see taper instructions Discharge Orders: Discharge ED (Routine); Ordered 08/07/25 Ordered By: Althea Mays Referrals: Roddy Paz, [employer] SHIFT MANAGER [Nurse Practitioner, Family Practice] - 4-7 days Discharge Diet: Advance as tolerated Discharge Activity: Resume usual activity Patient Instructions: Facial Contusion (ED) Print Language: Hungarian Coding Level of Care Code ED Weather Forcaster for Tahir Khalil
--- NOTE | 2025-08-07 08:02 | PC.PHAR ---
Jarett Greene is faxing current med list-they were not given this morning.
[2025-08-07 09:20] VITALS: BP 0/0; PULSE 82; O2SAT 93
== END 2025-08-07 09:20 | disposition home or self-care (01) ==
PROVIDERS: Emergency Provider Emergency Medicine; PCP Internal Medicine
DX: S09.8XXA Other specified injuries of head, initial encounter (principal); S00.83XA Contusion of other part of head, initial encounter; W19.XXXA Unspecified fall, initial encounter; Z79.82 Long term (current) use of aspirin; I10 Essential (primary) hypertension; Z85.828 Personal history of other malignant neoplasm of skin; Z86.73 Personal history of transient ischemic attack (TIA), and cerebral infarction without residual deficits
CPT/HCPCS: 70450; 70486; 72125; 99284